=== PATIENT | male | born 1955 | race Caucasian/White ===

== ENCOUNTER 2020-11-22 09:39 | Outpatient (REF) | payer MEDICARE, MEDICAID, SELFPAY ==
[2020-11-22 11:10] LABS: MANUAL DIFF FLAG NO
[2020-11-22 11:18] LABS: Basophils Absolute Auto 0.1 X10*3/uL (0.0-0.2); Basophils Percent Auto 1.1 % (0-2); Eosinophils Absolute Auto 0.3 X10*3/uL (0.0-0.4); Eosinophils Percent Auto 3.8 % (0-4); Hematocrit 46.1 % (42-52); Hemoglobin 15.1 g/dl (14.0-18.0); Imm Gran Abs Auto 0.02 X10*3/uL (0.00-0.03); Imm Gran Pct Auto 0.3 % (0.0-0.4); Lymphocytes Absolute Auto 1.9 X10*3/uL (1.2-4.9); Lymphocytes Percent Auto 27.5 % (20-40); Mean Corpuscular HGB Conc 32.8 g/dl (31.0-36.0); Mean Corpuscular Hemoglobin 33.9 pg (27.0-33.0); Mean Corpuscular Volume 103.4 fL (80-98); Monocytes Percent Auto 13.8 % (2-11); Neutrophils Absolute Auto 3.8 X10*3/uL (2.0-8.3); Neutrophils Percent Auto 53.5 % (45-73); Platelet Count 257 X10*3/uL (160-400); Red Blood Count 4.46 X10*6/uL (4.60-5.80); Red Cell Distribution Width 13.6 % (11.0-16.0)
[2020-11-22 12:16] LABS: Thyroid Stimulating Hormone 3.16 uIU/mL (0.32-4.0)
[2020-11-22 12:20] LABS: Alanine Aminotransferase 14 U/L (0-40); Albumin Level 4.2 g/dL (3.5-5.0); Alkaline Phosphatase 95 U/L (39-117); Anion Gap 17 (12-20); Aspartate Amino Transferase 18 U/L (5-37); Bilirubin Total 0.6 mg/dL (0.0-1.0); Blood Urea Nitrogen 10 mg/dL (9-16); Calcium 9.4 mg/dL (8.4-10.2); Carbon Dioxide 25 mmol/L (22-29); Chloride 103 mmol/L (96-108); Cholesterol 182 mg/dL; Estimated Glomerular Filt Rate > 60; Glucose Fasting 117 mg/dL (60-99); HDL Cholesterol 43 mg/dL; LDL Cholesterol Calculated 115 mg/dl; Potassium 4.5 mmol/L (3.3-5.1); Sodium 140 mmol/L (135-145); Total Protein 7.8 g/dL (6.5-8.0); Triglycerides 122 mg/dL
== END 2020-11-22 09:40 | disposition home or self-care (01) ==
LOC: HO.HMGCLDS 09:39
PROVIDERS: PCP Internal Medicine; Visit Provider Internal Medicine
DX: F32.9 Major depressive disorder, single episode, unspecified (principal); F10.24 Alcohol dependence with alcohol-induced mood disorder; G25.0 Essential tremor
CPT/HCPCS: 36415; 80053; 80061; 84443; 85025

== ENCOUNTER 2023-02-17 16:04 | Outpatient (REF) | payer MEDICARE, MEDICAID, SELFPAY ==
[2023-02-17 16:22] LABS: MANUAL DIFF FLAG NO
[2023-02-17 17:37] LABS: Basophils Absolute Auto 0.1 X10*3/uL (0.0-0.2); Basophils Percent Auto 1.8 % (0-2); Eosinophils Absolute Auto 0.2 X10*3/uL (0.0-0.4); Eosinophils Percent Auto 3.9 % (0-4); Hematocrit 40.1 % (42.0-52.0); Hemoglobin 13.8 g/dl (14.0-18.0); Imm Gran Abs Auto 0.06 X10*3/uL (0.00-0.03); Lymphocytes Absolute Auto 1.4 X10*3/uL (1.2-4.9); Lymphocytes Percent Auto 23.1 % (20-40); Mean Corpuscular HGB Conc 34.4 g/dl (31.0-36.0); Mean Corpuscular Hemoglobin 35.7 pg (27.0-33.0); Mean Corpuscular Volume 103.6 fL (80.0-98.0); Mean Platelet Volume 9.3 fL (9.4-12.4); Monocytes Absolute Auto 0.8 X10*3/uL (0.1-1.2); Monocytes Percent Auto 12.2 % (2-11); Neutrophils Absolute Auto 3.6 x10*3/uL (2.0-8.3); Platelet Count 222 X10*3/uL (160-400); Red Blood Count 3.87 X10*6/uL (4.60-5.80); Red Cell Distribution Width 13.1 % (11.0-16.0); White Blood Count 6.2 X10*3/uL (4.8-10.8)
[2023-02-17 18:31] LABS: Alanine Aminotransferase 48 U/L (0-40); Albumin Level 4.3 g/dL (3.5-5.0); Alkaline Phosphatase 124 U/L (39-117); Anion Gap 16 (12-20); Aspartate Amino Transferase 71 U/L (5-37); Bilirubin Total 0.9 mg/dL (0.0-1.0); Blood Urea Nitrogen 9 mg/dL (9-16); Calcium 9.6 mg/dL (8.4-10.2); Carbon Dioxide 25 mmol/L (22-29); Chloride 93 mmol/L (96-108); Estimated Glomerular Filt Rate > 60; Glucose Random 91 mg/dL (60-115); Potassium 4.3 mmol/L (3.3-5.1); Sodium 130 mmol/L (135-145)
[2023-02-18 10:13] LABS: Free Prostate Spec Ag 1.7 ng/mL; Percent Free Prostate Spec Ag 22 % (calc) (>25); Prostate Specific Ag Total 7.6 ng/mL (< OR = 4.0)
== END 2023-02-17 16:05 | disposition home or self-care (01) ==
LOC: HO.LAB 16:04
PROVIDERS: PCP Internal Medicine; Visit Provider Internal Medicine
DX: F32.9 Major depressive disorder, single episode, unspecified (principal); G25.0 Essential tremor; L98.8 Other specified disorders of the skin and subcutaneous tissue; M47.22 Other spondylosis with radiculopathy, cervical region
CPT/HCPCS: 36415; 80053; 84154; 85025

== ENCOUNTER → 2023-03-20 14:27 | Outpatient (BNVA) | payer MEDICARE, MEDICAID, SELFPAY | PROVIDERS: PCP Internal Medicine; Visit Provider Nurse Practitioner Family | DX: R97.20 Elevated prostate specific antigen [PSA] (principal) | CPT/HCPCS: 99202 ==

== ENCOUNTER 2023-04-02 13:21 | Outpatient (REF) | payer MEDICARE, MEDICAID, SELFPAY ==
[2023-04-02 14:56] LABS: PSA,Total (Free>4and<10) 1.66 ng/mL (0.00-4.00)
== END 2023-04-02 13:22 | disposition home or self-care (01) ==
LOC: HO.LAB 13:21
PROVIDERS: PCP Internal Medicine; Visit Provider Nurse Practitioner Family
DX: Z12.5 Encounter for screening for malignant neoplasm of prostate (principal); R97.20 Elevated prostate specific antigen [PSA]
CPT/HCPCS: 36415; 84153

== ENCOUNTER 2023-04-06 12:50 | Outpatient (AMB) | payer MEDICARE, MEDICAID, SELFPAY ==
--- NOTE | 2023-04-06 12:56 | A.OFFVIS_ITS ---
Intake Intake Visit Reasons: 2w/labs Intake Note: Patient is present for initial visit elevated psa (PSA 1.66) Urology Medications: none Blood Thinner: none Wool Puller Required: No Accompanied by: Self / Same As Patient Allergies No Known Allergies [No Known Allergies*] Allergy (Unverified 04/06/23 23:39) Medication List - Last Reconciled 04/06/23 by ELLIS Hope gabapentin 100 mg PO phenelzine 15 mg PO TID HPI HPI Comments History of Present Illness Details Jeffrey is a very pleasant 67-year-old male patient of Dr. Peters. He has a past medical history of ischemic cardiomyopathy, colitis, IBS, anemia, pulmonary embolism, DVT, chronic neurological disease with benign essential tremor, and depression. He presents to the office today for a follow up. Of note, patient was previously seen approximately 2 weeks ago as a new patient for an elevated PSA at which time a redraw of the PSA was ordered. These results were reviewed with the patient today. PSAs are as follows... 02/17/23--7.6 % free PSA 22% 04/02/23--1.7 In discussion with the patient today he reports to be doing and feeling well. When asked patient denies any urological issues or concerns at this time. When asked he denies urinary urgency, urinary frequency, incontinence, nocturia, hematuria, dysuria, foul smelling urine, changes to urinary stream, flank pain, fever, and or chills. He is happy with his current voiding parameters. Patient otherwise offers no issues or concerns. [facility] Medical History (Updated 04/06/23 @ 23:49 by ELLIS Hope) Anemia Benign essential tremor Chronic neurologic disease Colitis Depression DVT (deep venous thrombosis) IBS (irritable bowel syndrome) Ischemic cardiomyopathy Pulmonary embolism Review of Systems Const All systems reviewed & are unremarkable except as noted in HPI and below Reports as per HPI Card Reports as per HPI Resp Reports as per HPI GI Reports as per HPI Reports as per HPI Musc Reports as per HPI Neuro Reports as per HPI Psych Reports as per HPI Endo Reports no additional complaints Carlos/Lymph Reports as per HPI Aller/Immun Reports no additional complaints Physical Exam Const General: cooperative, healthy appearing, comfortable, no acute distress, well developed, alert and awake Orientation/consciousness: patient oriented x3 Limitations: no limitations HEENT Head: Yes normal to inspection, Yes normocephalic and Yes atraumatic Ears: hearing grossly normal bilaterally Eyes General: appearance normal, both eyes and all related structures Neck Neck: Yes normal visual inspection and Yes trachea midline Chest Chest palpation & inspection: normal inspection of the chest Resp Effort & Inspection: normal respiratory effort and able to speak in complete sentences Cardio Rate: regular rate GI Inspection: Yes normal to inspection Rectal Exam - Male: Yes deferred General: Yes no CVA tenderness Back/Spine/Pelvis Back: no CVA tenderness Skin General skin exam: no rashes or lesions noted Neuro General: patient oriented x3 Extrem General: Yes normal to inspection Psych Appearance: grossly normal and well kempt Mental Status: mental status grossly normal Speech and movement: Normal speech and movement present and Clear speech present Affect: normal affect Attitude: cooperative Thought process: Normal thought process present Thought content: Normal thought content present Insight: Fair insight present (Psych) Judgement: Fair judgement present (Psych) Assessment & Plan Assessment & Plan (1) Elevated PSA: Code(s): R97.20 - Elevated prostate specific antigen [PSA] Plan Recent PSA results reviewed with the patient today; as noted above. Patient denies any urological issues or concerns at this time. Patient reports be happy with current voiding parameters. PSA in 4 months. Follow-up in 4 months with lab to be completed prior; or sooner with any issues, concerns, and or questions. Orders: Orders Prostate Specific Antigen 4 Months R97.20 - Elevated prostate specific antigen [PSA] AMB Urinalysis Automated Today Z13.9 - Encounter for screening, unspecified Patient Instructions: The patient had an opportunity to ask questions regarding the treatment plan. All questions were answered. Physical exam, labs, and imaging were discussed and reviewed in detail. As well as risks, benefits, and discussion of treatment choices. No major barriers to understanding were identified. The patient expressed understanding and agreement with the above treatment plan. The patient was made aware they should contact our office by phone for worsening of their current condition, the appearance of new symptoms, or with any questions or concerns. Compliance is encouraged with any medications and follow up testing that is ordered. It is a privilege to be allowed the opportunity to participate in? your urological care.? Again, if you have any questions or concerns If you have any questions or concerns please do not hesitate to contact me. The office is [phone]. This note is constructed using voice recognition software. While every effort has been made to ensure accuracy hydraulic governor assembler errors may have been included. Yours sincerely, ELLIS Hope Coding Level of Care Code Est Pt Level 3 (07830) Diagnoses Elevated PSA R97.20
== END 2023-04-06 13:28 | disposition home or self-care (01) ==
PROVIDERS: PCP Internal Medicine; Visit Provider Nurse Practitioner Family
DX: R97.20 Elevated prostate specific antigen [PSA] (principal)
CPT/HCPCS: 99213

== ENCOUNTER → 2023-04-06 12:50 | Outpatient (BNVA) | payer MEDICARE, MEDICAID, SELFPAY | PROVIDERS: PCP Internal Medicine; Visit Provider Nurse Practitioner Family | DX: R97.20 Elevated prostate specific antigen [PSA] (principal) | CPT/HCPCS: 99212 ==

== ENCOUNTER 2023-05-27 13:17 | Inpatient (IN) | payer MEDICARE, MEDICAID, SELFPAY ==
--- NOTE | ~2023-05-27 | XR_ITS ---
EXAMINATION: XR TIBIA AND FIBULA, LEFT CLINICAL INFORMATION: Posterior leg wound COMPARISON: None available. TECHNIQUE: AP and lateral views of the left tibia and fibula were obtained. FINDINGS: No fracture or dislocation. Degenerative changes in the knee joint. No bony erosions visualized. Ankle joint appears intact. XR/XR tibia fibula LT 2V IMPRESSION: No fracture or dislocation. No bony erosions.
[2023-05-27 13:42] VITALS: BP 140/72; PULSE 851; O2SAT 96
[2023-05-27 14:23] VITALS: BMI 31.4
--- NOTE | 2023-05-27 14:26 | ED_ITS ---
HPI - Extremity Injury (Lower) General Chief Complaint: Wound/Laceration Stated Complaint: open wound Time Seen by Provider: 05/27/23 13:44 Source: patient Mode of arrival: EMS History of Present Illness HPI Narrative: 67-year-old male with history of ischemic cardiomyopathy, anemia, ulcerative colitis and a history DVT/PE, depression, benign essential tremor. He presents today via EMS after someone else call them (I suspect a Health and welfare check) and arrives stating that he has had a wound at his left lower extremity which has maggots and when I ask him about the feces around his feet he says he has an taking his shoes off. Related Data Home Medications Medication Instructions Recorded Confirmed gabapentin 100 mg capsule 100 mg PO TID PRN Pain 03/19/23 05/27/23 phenelzine 15 mg tablet 15 mg PO TID 03/20/23 05/27/23 propranolol 120 mg capsule,24 120 mg PO DAILY 05/27/23 05/27/23 hr,extended release thiamine HCl (vitamin B1) 100 mg 100 mg PO DAILY 05/27/23 05/27/23 tablet Allergies Allergy/AdvReac Type Severity Reaction Status Date / Time No Known Allergies Allergy Unverified 04/06/23 23:39 [No Known Allergies*] Review of Systems Review of Systems: Pertinent positives and negatives as stated in HPI [facility] Past Medical History Source: nursing notes reviewed Medical History Anemia Benign essential tremor Chronic neurologic disease Colitis Depression DVT (deep venous thrombosis) IBS (irritable bowel syndrome) Ischemic cardiomyopathy Pulmonary embolism Social History Social History Alcohol intake: current Smoked in Last 30 Days: No Use of substances other than those prescribed or required for medical reasons: No Advance Directives: Yes Advance Directives Information Provided: Yes Advance Directives on File: No Physical Exam Vital Signs: Vital Signs: Last Vital Signs Temp 98.6 F 05/27/23 15:34 Pulse 91 05/27/23 15:34 Resp 16 05/27/23 15:34 BP 145/84 H 05/27/23 15:34 Pulse Ox 95 05/27/23 15:34 O2 Del Method Room Air 05/27/23 15:34 BMI result Body Mass Index 31.4 VITAL SIGNS: Reviewed. GENERAL: Well developed, well nourished, in no acute distress. HEAD: Normocephalic/atraumatic EYES: PERRLA, EOMI EARS: Ext canals without abnormality NOSE: Nares patent bilateral OROPHARYNX: no oral lesions noted, posterior pharynx clear NECK: Supple, no adenopathy LUNGS: Normal breath sounds. No adventitious sounds or accessory muscle use. CARDIOVASCULAR: Regular rate and rhythm without noted murmurs ABDOMEN: Soft, non-tender, non-distended with bowel sounds. MUSCULOSKELETAL: No tenderness, deformities, or effusions noted on gross inspection. EXTREMITIES: No cyanosis, clubbing or edema. LLE: There are chronic skin changes likely secondary to venous stasis but there is a huge area of necrotic tissue at the posterior aspect with maggot activity BILATERAL FEET: Bilateral feet are covered in feces SKIN: Inspection of the skin reveals no rashes NEUROLOGIC: Alert and oriented x 4. Strength and sensation to light touch were grossly intact x 4. Medications Administered Discontinued Medications Generic Name Dose Route Start Last Admin Trade Name Freq PRN Reason Stop Dose Admin Sodium Chloride 1,000 mls @ 999 mls/hr 05/27/23 15:00 05/27/23 16:22 Ns IV 05/27/23 16:00 Infused .Q1H1M LUTHER Infusion Piperacillin Sod/Tazobactam 50 mls @ 100 mls/hr 05/27/23 16:55 05/27/23 18:24 Sod 3.375 gm/ Sodium Chloride IV 05/27/23 17:24 Infused ONCE ONE Infusion Medical Decision Making Medical Decision Making [facility] Narrative: 1345: 67-year-old male with history and clinical presentation consistent with necrotic tissue at the left lower extremity, on review of patient's chart it does appear that he has been seen by Urology for elevated PSA and has a follow- up appointment in 4 months (the most recent appointment was in March). Leg will be cleaned to the best of our ability. I reviewed all investigations and hematologic indices are not significant for leukocytosis or left shift, patient has chronically stable macrocytic anemia, there is a mild thrombocytopenia-137. Patient is afebrile. Chemistry indices significant for evidence of dehydration but no MARIELA and electrolytes are without derangement, total bili room mid elevated at 1.6 this could be reactive given condition of leg. XR-no periosteal evidence of osteo no otherwise my interpretation is in agreement with radiology's impression. 1655: Consultation with General surgery for debridement. Recommendation for possible admission to hospitalist service and will consult for debridement. 170: Consult did with inpatient hospitalist. 1924: I confirmed with inpatient hospitalist who accepts admission. Differential Diagnosis Differential Diagnoses: The differential diagnosis associated with the presentation includes Please see the discussion above Admission/Observation Consideration of admission/observation: Escalation of care including admission/observation considered Please see the discussion above Consult Healthcare Provider Management of the patient was discussed with: Jewelry Racker Please see the discussion above Lab Data MDM Lab Attestation statement: I reviewed the patient's lab results. Please see the discussion above 05/27/23 14:28 05/27/23 14:28 Labs: Lab Results 05/27/23 05/27/23 05/27/23 Range/Units 14:28 14:28 14:28 WBC 6.1 (4.8-10.8) X10*3/uL RBC 3.83 L (4.60-5.80) X10*6/uL Hgb 13.7 L (14.0-18.0) g/dl Hct 39.0 L (42.0-52.0) % MCV 101.8 H (80.0-98.0) fL MCH 35.8 H (27.0-33.0) pg MCHC 35.1 (31.0-36.0) g/dl RDW 13.6 (11.0-16.0) % Plt Count 137 L D (160-400) X10*3/uL MPV 8.3 L (9.4-12.4) fL Immature Gran % (Auto) 0.5 H (0.0-0.4) % Neut % (Auto) 64.9 (45-73) % Lymph % (Auto) 17.2 L (20-40) % [place] % (Auto) 13.2 H (2-11) % Eos % (Auto) 3.0 (0-4) % Baso % (Auto) 1.2 (0-2) % Lymph # (Auto) 1.0 L (1.2-4.9) X10*3/uL [place] # (Auto) 0.8 (0.1-1.2) X10*3/uL Eos # (Auto) 0.2 (0.0-0.4) X10*3/uL Baso # (Auto) 0.1 (0.0-0.2) X10*3/uL Abs Immat Gran (auto) 0.03 (0.00-0.03) X10*3/uL Absolute Neuts (auto) 3.9 (2.0-8.3) x10*3/uL Absolute Nucleated RBC 0.000 (0.0-0.012) X10*3/uL Nucleated RBC % (auto) 0.0 (0.0-0.2) /100WBC PT (11.1-13.3) SEC INR (0.9-1.1) Sodium 132 L (135-145) mmol/L Potassium 4.0 (3.3-5.1) mmol/L Chloride 93 L (96-108) mmol/L Carbon Dioxide 27 (22-29) mmol/L Anion Gap 16 (12-20) BUN 7 L (9-16) mg/dL Creatinine 0.82 (0.5-1.4) mg/dL Estim Creat Clear Calc 104.8 Estimated GFR > 60 Random Glucose 112 (60-115) mg/dL Lactic Acid 2.5 H* (0.5-2.0) mmol/L Lactic Acid F/U @ 2Hr (0.5-2.0) mmol/L Calcium 9.9 (8.4-10.2) mg/dL Total Bilirubin 1.6 H (0.0-1.0) mg/dL AST 49 H (5-37) U/L ALT 32 (0-40) U/L Alkaline Phosphatase 92 (39-117) U/L Total Protein 7.8 (6.5-8.0) g/dL Albumin 3.8 (3.5-5.0) g/dL Urine Color Urine Appearance Urine pH (5.0-9.0) Ur Specific [place] (1.005-1.025) Urine Protein (Neg-Trace) mg/dL Urine Glucose (UA) (Negative) mg/dL Urine Ketones (Negative) mg/dL Urine Blood (Negative) Urine Nitrite (Negative) Ur Leukocyte Esterase (Negative) 05/27/23 05/27/23 05/27/23 Range/Units 16:54 16:54 17:43 WBC (4.8-10.8) X10*3/uL RBC (4.60-5.80) X10*6/uL Hgb (14.0-18.0) g/dl Hct (42.0-52.0) % MCV (80.0-98.0) fL MCH (27.0-33.0) pg MCHC (31.0-36.0) g/dl RDW (11.0-16.0) % Plt Count (160-400) X10*3/uL MPV (9.4-12.4) fL Immature Gran % (Auto) (0.0-0.4) % Neut % (Auto) (45-73) % Lymph % (Auto) (20-40) % [place] % (Auto) (2-11) % Eos % (Auto) (0-4) % Baso % (Auto) (0-2) % Lymph # (Auto) (1.2-4.9) X10*3/uL [place] # (Auto) (0.1-1.2) X10*3/uL Eos # (Auto) (0.0-0.4) X10*3/uL Baso # (Auto) (0.0-0.2) X10*3/uL Abs Immat Gran (auto) (0.00-0.03) X10*3/uL Absolute Neuts (auto) (2.0-8.3) x10*3/uL Absolute Nucleated RBC (0.0-0.012) X10*3/uL Nucleated RBC % (auto) (0.0-0.2) /100WBC PT 13.0 (11.1-13.3) SEC INR 1.1 (0.9-1.1) Sodium (135-145) mmol/L Potassium (3.3-5.1) mmol/L Chloride (96-108) mmol/L Carbon Dioxide (22-29) mmol/L Anion Gap (12-20) BUN (9-16) mg/dL Creatinine (0.5-1.4) mg/dL Estim Creat Clear Calc Estimated GFR Random Glucose (60-115) mg/dL Lactic Acid (0.5-2.0) mmol/L Lactic Acid F/U @ 2Hr 1.6 (0.5-2.0) mmol/L Calcium (8.4-10.2) mg/dL Total Bilirubin (0.0-1.0) mg/dL AST (5-37) U/L ALT (0-40) U/L Alkaline Phosphatase (39-117) U/L Total Protein (6.5-8.0) g/dL Albumin (3.5-5.0) g/dL Urine Color Yellow Urine Appearance Clear Urine pH 7.0 (5.0-9.0) Ur Specific [place] <= 1.005 (1.005-1.025) Urine Protein Negative (Neg-Trace) mg/dL Urine Glucose (UA) Negative (Negative) mg/dL Urine Ketones Trace (Negative) mg/dL Urine Blood Negative (Negative) Urine Nitrite Negative (Negative) Ur Leukocyte Esterase Negative (Negative) Independent Interpretation I performed an independent interpretation of an: EKG Interpretation: Normal sinus rhythm, HR-77, no STEMI, DE/QRS/QTC is within normal limits. Radiology Impression Discussion of test interpretation with radiology: I have reviewed the radiologist's reading. Radiologist Impression: Please see the discussion above External Record Review External record reviewed: Office record, Outpatient record, Prior outpatient labs and Prior outpatient radiology Chronic Conditions Patient?s care impacted by: Other Anemia Critical Care Time Critical Care Time Critical Care Time: Yes Total Critical Care Time: 30 Attestation: I personally attest to this time spent taking care of the patient. Discharge Plan Discharge Clinical Impression: Non-healing wound of left lower extremity, Infestation by maggots Patient Disposition: Admitted As Inpatient
--- NOTE | 2023-05-27 14:30 | ECG_ITS ---
Test Reason : LOW SODIUM Blood Pressure : / mmHG Vent. Rate : 077 BPM Atrial Rate : 077 BPM P-R Int : 188 ms QRS Dur : 104 ms QT Int : 414 ms P-R-T Axes : 000 186 154 degrees QTc Int : 468 ms Suspect limb lead reversal, interpretation assumes no reversal Normal sinus rhythm Right superior axis deviation Possible Anterior infarct , age undetermined Abnormal ECG No previous ECGs available Referred By: Bhavya Mejia Electronically Signed By:DANTE WAY
[2023-05-27 14:39] LABS: MANUAL DIFF FLAG NO
[2023-05-27 14:43] LABS: Basophils Absolute Auto 0.1 X10*3/uL (0.0-0.2); Basophils Percent Auto 1.2 % (0-2); Eosinophils Absolute Auto 0.2 X10*3/uL (0.0-0.4); Hemoglobin 13.7 g/dl (14.0-18.0); Imm Gran Abs Auto 0.03 X10*3/uL (0.00-0.03); Imm Gran Pct Auto 0.5 % (0.0-0.4); Lymphocytes Percent Auto 17.2 % (20-40); Mean Corpuscular HGB Conc 35.1 g/dl (31.0-36.0); Mean Corpuscular Hemoglobin 35.8 pg (27.0-33.0); Mean Corpuscular Volume 101.8 fL (80.0-98.0); Mean Platelet Volume 8.3 fL (9.4-12.4); Monocytes Absolute Auto 0.8 X10*3/uL (0.1-1.2); Monocytes Percent Auto 13.2 % (2-11); Neutrophils Absolute Auto 3.9 x10*3/uL (2.0-8.3); Neutrophils Percent Auto 64.9 % (45-73); Platelet Count 137 X10*3/uL (160-400); Red Blood Count 3.83 X10*6/uL (4.60-5.80); Red Cell Distribution Width 13.6 % (11.0-16.0); White Blood Count 6.1 X10*3/uL (4.8-10.8)
[2023-05-27 14:54] LABS: Alanine Aminotransferase 32 U/L (0-40); Albumin Level 3.8 g/dL (3.5-5.0); Alkaline Phosphatase 92 U/L (39-117); Anion Gap 16 (12-20); Aspartate Amino Transferase 49 U/L (5-37); Bilirubin Total 1.6 mg/dL (0.0-1.0); Blood Urea Nitrogen 7 mg/dL (9-16); Calcium 9.9 mg/dL (8.4-10.2); Carbon Dioxide 27 mmol/L (22-29); Chloride 93 mmol/L (96-108); Creatinine Clr Calc Pharmacy 104.8; Estimated Glomerular Filt Rate > 60; Glucose Random 112 mg/dL (60-115); Sodium 132 mmol/L (135-145); Total Protein 7.8 g/dL (6.5-8.0)
[2023-05-27 14:56] LABS: Lactic Acid 2.5 mmol/L (0.5-2.0)
--- NOTE | 2023-05-27 14:56 | MHC.EDTECH ---
pt requesting to have maggots cleaned from wound. made aware. Used a hydrogen peroxide/water solution to soak the legs. Pt tolerated well.
[2023-05-27] MEDS: 0.9 % Sodium Chloride 1,000 ML 999 ML IV (15:14)
[2023-05-27 15:34] VITALS: BP 145/84; PULSE 91; RESP 16; TEMP 37; O2SAT 95
[2023-05-27 16:37] LABS: Reflex Lactate? Lactic Acid Added
[2023-05-27 17:11] LABS: INTERNATIONAL NORM RATIO 1.1 (0.9-1.1)
[2023-05-27 17:14] LABS: ~Lactic Acid-LAB USE ONLY 1.6 mmol/L (0.5-2.0)
[2023-05-27] MEDS: Piperacillin Sodium/Tazobactam 3.375 GM in 0.9 % Sodium Chloride 50 ML IV ×2 (17:39→23:52)
--- NOTE | 2023-05-27 17:39 | P.HPHOSP_ITS ---
<Statement entered by Alexus Ayoub MD - 06/01/23 07:08> PT seen and examined at [facility]. I agree with MUSHT[facility] note, AP Pt with poorly healing wound. will consult wound care, IV abx , follow cultures for full HP see below History of Present Illness Date of Service: 05/27/23 Attending physician on admission: Alexus Ayoub Chief Complaint: Lower left leg wound Pt is a 67-year-old male with a PMH significant for?ischemic cardiomyopathy, hx of pulmonary embolism 10 years ago, hx of DVT, ulcerative colitis, peripheral neuropathy, HTN, and chronic constipation who presents to the ED for evaluation of lower leg redness, purulent discharge, and open wound. Patient states he used to be very active and ran all the time but since he had a DVT and pulmonary embolism 10 years ago has been much less active. Complains of chronic peripheral neuropathy and ?poor blood flow?. Patient reports he noticed 2 weeks ago redness and bleeding from open wound on his lower left leg. More recently patient has noticed purulent drainage from the area and that his wound was infested with maggots. Patient complains of difficulty walking and pain secondary to peripheral neuropathy. Swelling in legs is chronic, at baseline. Patient lives in a house in a room in a basement with multiple other housemates. States one of his housemates called the ambulance after looking at his leg. Patient denies fever, chills. No nausea, vomiting, diarrhea, abdominal pain. Denies shortness of breath. No chest pain/pressure, palpitations. In the ED patient was afebrile but slightly hypertensive at 145/84. Labs were significant for H&H of 13.7/39.0, hyponatremia of 132, chloride 93, lactic acid 2.5 with repeat 1.4, bilirubin 1.6, AST 49. X-ray of left tibia and fibula with no acute fracture dislocation or bony erosions. EKG demonstrated normal sinus rhythm with non specific t-wave inversions and no evidence of ST elevations or depressions. Pt was treated with IVF and Zosyn. Pt will be admitted to the hospital for treatment further evaluation of lower leg cellulitis with IV antibiotics and specialist consultation for wound care. Review of Systems 2 Review of Systems: Lower left leg redness, swelling, purulent discharge Chronic peripheral neuropathy [facility] Medical History Anemia Benign essential tremor Chronic neurologic disease Colitis Depression DVT (deep venous thrombosis) IBS (irritable bowel syndrome) Ischemic cardiomyopathy Pulmonary embolism Social History Alcohol intake: current Smoked in Last 30 Days: No Use of substances other than those prescribed or required for medical reasons: No Advance Directives: Yes Advance Directives Information Provided: Yes Advance Directives on File: No Meds Allergies Allergy/AdvReac Type Severity Reaction Status Date / Time No Known Allergies Allergy Unverified 04/06/23 23:39 [No Known Allergies*] Home Medications Medication Instructions Recorded Confirmed Last Taken Type gabapentin 100 mg capsule 100 mg PO TID PRN Pain 03/19/23 05/27/23 Unknown History phenelzine 15 mg tablet 15 mg PO TID 03/20/23 05/27/23 1 Week Ago History ~05/20/23 propranolol 120 mg capsule,24 120 mg PO DAILY 05/27/23 05/27/23 Unknown History hr,extended release thiamine HCl (vitamin B1) 100 mg 100 mg PO DAILY 05/27/23 05/27/23 Unknown History tablet Physical Exam 2 Vital Signs and Narrative: Vital Signs: Last Vital Signs Temp 98.6 F 05/27/23 15:34 Pulse 91 05/27/23 15:34 Resp 16 05/27/23 15:34 BP 145/84 H 05/27/23 15:34 Pulse Ox 95 05/27/23 15:34 O2 Del Method Room Air 05/27/23 15:34 BMI result Body Mass Index 31.4 Constitutional: Alert, unkempt, in no acute distress. Mental Status: Oriented to person, place and time. Eyes: Pupils are equal, round, and reactive to light. Ear, Nose, and Throat: Oropharynx clear, mucous membranes moist. Ears and nose without deformities. Trachea midline. Respiratory: Clear to auscultation bilaterally. No wheezing, rales, or rhonchi. Cardiovascular: S1, S2 regular. No murmurs, rubs, or gallops. Gastrointestinal: Abdomen soft, non-tender, non-distended. Normal bowel sounds. Neurologic: Cranial nerves II-XII are grossly intact bilaterally. No focal neurological deficits. Moves all extremities spontaneously. Skin: No rashes or lesions noted. Musculoskeletal: No cyanosis or clubbing. Extremities: No edema. Psychiatric: Normal mood and affect. Results Labs 05/27/23 14:28 05/27/23 14:28 Labs: Laboratory Results - last 24 hr 05/27/23 05/27/23 05/27/23 14:28 14:28 14:28 MCV 101.8 H MCH 35.8 H MCHC 35.1 RDW 13.6 Plt Count 137 L D MPV 8.3 L Immature Gran % (Auto) 0.5 H Neut % (Auto) 64.9 Lymph % (Auto) 17.2 L [place] % (Auto) 13.2 H Eos % (Auto) 3.0 Baso % (Auto) 1.2 Lymph # (Auto) 1.0 L [place] # (Auto) 0.8 Eos # (Auto) 0.2 Baso # (Auto) 0.1 Abs Immat Gran (auto) 0.03 Absolute Neuts (auto) 3.9 Absolute Nucleated RBC 0.000 Nucleated RBC % (auto) 0.0 PT INR Anion Gap 16 Estim Creat Clear Calc 104.8 Estimated GFR > 60 Random Glucose 112 Lactic Acid 2.5 H* Lactic Acid F/U @ 2Hr Calcium 9.9 Total Bilirubin 1.6 H AST 49 H ALT 32 Alkaline Phosphatase 92 Total Protein 7.8 Albumin 3.8 05/27/23 05/27/23 16:54 16:54 MCV MCH MCHC RDW Plt Count MPV Immature Gran % (Auto) Neut % (Auto) Lymph % (Auto) [place] % (Auto) Eos % (Auto) Baso % (Auto) Lymph # (Auto) [place] # (Auto) Eos # (Auto) Baso # (Auto) Abs Immat Gran (auto) Absolute Neuts (auto) Absolute Nucleated RBC Nucleated RBC % (auto) PT 13.0 INR 1.1 Anion Gap Estim Creat Clear Calc Estimated GFR Random Glucose Lactic Acid Lactic Acid F/U @ 2Hr 1.6 Calcium Total Bilirubin AST ALT Alkaline Phosphatase Total Protein Albumin Imaging Radiologist's Impressions: Impressions Tibia/Fibula X-Ray 05/27/23 16:15 IMPRESSION: No fracture or dislocation. No bony erosions. Assessment and Plan (1) Non-healing wound of left lower extremity: Status: Acute (2) Infestation by maggots: Status: Acute (3) Cellulitis of left lower leg: Status: Acute Plan Pt is a 67-year-old male with a PMH significant for?ischemic cardiomyopathy, hx of pulmonary embolism 10 years ago, hx of DVT, ulcerative colitis, peripheral neuropathy, HTN, and chronic constipation who presents to the ED for evaluation of lower leg redness, purulent discharge, and open wound. Pt will be admitted to the hospital for treatment further evaluation of lower leg cellulitis with IV antibiotics and specialist consultation for wound care. Cellulitis of lower left leg with underlying chronic venous stasis dermatitis Patient with erythema, bleeding, purulent drainage, sloughing of the skin, and maggot infestation x 2 weeks Patient with difficulty keeping area hygienic: foot encrusted with likely feces Area cleaned in the ED Will treat with empiric antibiotics: Vanc and Zosyn X-ray of left fibula and tibia negative for acute fracture, dislocation, or bony erosions Will check CRP, ESR; if sufficiently elevated consider MRI Wound care consult PT evaluation Lactic acidosis, resolved Patient's lactic acid 2.5 with repeat 1.6 Patient given IVF in ED Patient does not meet sepsis criteria Hyponatremia Patient's sodium 132 at time of presentation, similar to previous labs on 02/17/2023 Patient asymptomatic Received IVF in the ED Follow BMP Chronic macrocytic anemia Stable, at baseline Will check B12, folate Peripheral neuropathy Continue gabapentin HTN Continue propranolol Full Code Attending:?Dr. Ayoub DVT Prophylaxis: Lovenox Pt will require a hospitalization of at least two nights for treatment of?lower left leg cellulitis with IV antibiotics and undercar specialist consult. Time Spent With Patient Time: Total time managing care of this patient today ____ minutes. Quality Stroke Does the patient have a stroke diagnosis?: No VTE Prior VTE?: No VTE Risk Level:: Medical - moderate - high VTE Device Contraindication: Treatment Not Indicated VTE Drug Contraindication: N/A - Med Ordered
[2023-05-27 18:14] LABS: Appearance Urine Clear; Color Urine Yellow; Glucose Urine UA Negative (Negative); Leukocyte Esterase Urine Negative (Negative); Nitrite Urine Negative (Negative); Specific Gravity - Urine <= 1.005 (1.005-1.025); Urine Blood Negative (Negative); Urine Ketones Trace mg/dL (Negative); Urine Protein Negative (Neg-Trace)
--- NOTE | 2023-05-27 18:49 | PHA.MEDREC ---
Pharmacy Consult ? Medication Reconciliation Pharmacy has completed the medication reconciliation. Patient confirmed medications. Reports he has not had phenelzine in about a week because he is suppose to take it with another medication called maprotiline. Patient has no history of maprotiline being filled. patient reported he now get all his medications at [facility]. He believes he takes more than the 4 medication in the claim history. Called [facility] to confirmed all medications and patient is only on the 4 in his home list. Joyce Olson, PamD
[2023-05-27 20:16] LABS: C Reactive Protein 5.59 mg/dL (< or = 0.50)
[2023-05-27] MEDS: Enoxaparin Sodium 40 MG/0.4 ML SYRINGE SUBCUT (20:31)
[2023-05-27] MEDS: vancomycin/NS 2,000 MG/500 ML PLAST..BAG 250 MG IV (20:32)
[2023-05-27 20:51] VITALS: BP 132/69; PULSE 69; O2SAT 97
--- NOTE | 2023-05-27 21:03 | PHA.PROG ---
Admission Date/Time: May 27, 2023 19:37 Indication: Cellulitis Weight in k kg Adjusted body weight in K kg [place] body weight in K.3 kg Obesity Dosing Indication % IBW: 135% Serum Creatinine - Last 168 Hours 05/27/23 14:28 Creatinine 0.82 Estimated CrCl and GFR - Last 168 Hours 05/27/23 14:28 Estim Creat Clear Calc 104.8 Estimated GFR > 60 Vancomycin Loading Dose: 2000 mg Current Vancomycin Dosing Regimen: 1000 mg Q12H Date and Time for next Vancomycin Level to be drawn: 05/29 @ 0700 Pharmacist Comments on Vancomycin Plan: Patient received load dose vancomycin 2000 mg on 05/27 @ 2031. Maintenance dose vancomycin 1000 mg Q12H is scheduled to start 05/28 @ 0900. Expected AUC 431 with a trough of 13.8 Level is scheduled prior to 4th dose Pharmacy will monitor renal function daily Joyce Olson, Jeny Vancomycin dosing will take advantage of [employer] as a clinical decision support tool that uses Bayesian modeling to calculate individual patient's pharmacokinetic parameters and forecast the patient's drug concentration time course with the target goal AUC 24 range of 400 - 600 mg/L/hr.
[2023-05-27] MEDS: 0.9 % Sodium Chloride Flush 3 ML SYRINGE IVFLUSH (23:52)
[2023-05-28] VITALS (11 sets, daily range): BP systolic 105–151; BP diastolic 56–83; PULSE 65–80; RESP 15–18; TEMP 36.3–37.1; O2SAT 94–99; BMI 31.7
[2023-05-28] MEDS: Piperacillin Sodium/Tazobactam 3.375 GM in 0.9 % Sodium Chloride 50 ML IV ×4 (06:58→23:54)
--- NOTE | 2023-05-28 07:41 | P.CONGS_ITS ---
History of Present Illness Consult details Consult date: 05/27/23 Narrative: Patient is 67-year-old male with a plethora of comorbidities, who lives in very squalid living conditions, presented to the ER for variety of issues and a surgical consult for chronic left leg cellulitis. The patient has had a longstanding history of bilateral lower extremity venous insufficiency changes and swelling and cellulitis . Chart was reviewed patient evaluated PMF Past Medical History Medical History Anemia Benign essential tremor Chronic neurologic disease Colitis Depression DVT (deep venous thrombosis) IBS (irritable bowel syndrome) Ischemic cardiomyopathy Pulmonary embolism Social History Social History Alcohol intake: current Patient Tobacco Use Status: Former Tobacco user Smoked in Last 30 Days: No Use of substances other than those prescribed or required for medical reasons: No Advance Directives: Yes Advance Directives Information Provided: Yes Advance Directives on File: No Meds Allergies Allergy/AdvReac Type Severity Reaction Status Date / Time No Known Allergies Allergy Unverified 04/06/23 23:39 [No Known Allergies*] Active Medications: Current Medications Acetaminophen (Acetaminophen 325 Mg Tablet) 650 mg PO Q6H PRN PRN Reason: Pain, Mild (Pain Scale 1-3) Docusate Sodium (Docusate Sodium 100 Mg Capsule) 100 mg PO DAILY PRN PRN Reason: Constipation Enoxaparin Sodium (Enoxaparin Sodium 40 Mg/0.4 Ml Syringe) 40 mg SUBCUT Q24H [facility] Last Admin: 05/27/23 20:31 Dose: 40 mg Gabapentin (Gabapentin 100 Mg Capsule) 100 mg PO TID PRN PRN Reason: Pain, Mild (Pain Scale 1-3) Piperacillin Sod/Tazobactam (Sod 3.375 gm/ Sodium Chloride) 50 mls @ 100 mls/hr IV Q6H [facility] Last Admin: 05/28/23 06:58 Dose: 100 mls/hr Vancomycin HCl 1,000 mg/ (Sodium Chloride) 270 mls @ 270 mls/hr IV Q12H [facility] Ondansetron HCl (Ondansetron Hcl 4 Mg/2 Ml Vial) 4 mg IVPUSH Q8H PRN PRN Reason: Nausea and Vomiting Pharmacy Consult (Consult Rx Vancomycin Dosing) 1 each MISCELLANE DAILY PRN PRN Reason: Consult order Propranolol HCl (Propranolol Hcl La 60 Mg Cap.Sa.24h) 120 mg PO DAILY [facility]; Protocol Sodium Chloride (0.9 % Sodium Chloride Flush 3 Ml Syringe) 3 ml IVFLUSH QSHIFT [facility] Last Admin: 05/27/23 23:52 Dose: 3 ml Thiamine HCl (Thiamine Hcl 100 Mg Tablet) 100 mg PO DAILY [facility] Home Medications Medication Instructions Recorded Confirmed Last Taken Type gabapentin 100 mg capsule 100 mg PO TID PRN Pain 03/19/23 05/27/23 Unknown History phenelzine 15 mg tablet 15 mg PO TID 03/20/23 05/27/23 1 Week Ago History ~05/20/23 propranolol 120 mg capsule,24 120 mg PO DAILY 05/27/23 05/27/23 Unknown History hr,extended release thiamine HCl (vitamin B1) 100 mg 100 mg PO DAILY 05/27/23 05/27/23 Unknown History tablet Physical Exam 2 Vital Signs: Vital Signs: Last Vital Signs Temp 98.4 F 05/28/23 07:06 Pulse 69 05/28/23 07:06 Resp 15 05/28/23 07:06 BP 150/83 H 05/28/23 07:06 Pulse Ox 97 05/28/23 07:06 O2 Del Method Room Air 05/28/23 07:06 BMI result Body Mass Index 31.4 Const: Other: very unkempt, disheveled , ungroomed appearing elderly male Extrem: Other: bilateral lower extremity chronic brawny induration and edema. Left lower extremity worse than the right. Extremities grossly neurovascularly intact. Very dirty/filthy extremity with superficial cellulitis. Results Labs 05/28/23 09:26 05/28/23 09:26 Labs: Abnormal lab results 05/27/23 Range/Units 14:28 RBC 3.83 L (4.60-5.80) X10*6/uL Hgb 13.7 L (14.0-18.0) g/dl Hct 39.0 L (42.0-52.0) % MCV 101.8 H (80.0-98.0) fL MCH 35.8 H (27.0-33.0) pg Plt Count 137 L D (160-400) X10*3/uL MPV 8.3 L (9.4-12.4) fL Immature Gran % (Auto) 0.5 H (0.0-0.4) % Lymph % (Auto) 17.2 L (20-40) % [place] % (Auto) 13.2 H (2-11) % Lymph # (Auto) 1.0 L (1.2-4.9) X10*3/uL Sodium 132 L (135-145) mmol/L Chloride 93 L (96-108) mmol/L BUN 7 L (9-16) mg/dL Lactic Acid 2.5 H* (0.5-2.0) mmol/L Total Bilirubin 1.6 H (0.0-1.0) mg/dL AST 49 H (5-37) U/L C-Reactive Protein 5.59 H (< or = 0.50) mg/dL Short CBC 05/27/23 Range/Units 14:28 WBC 6.1 (4.8-10.8) X10*3/uL Hgb 13.7 L (14.0-18.0) g/dl Hct 39.0 L (42.0-52.0) % Plt Count 137 L D (160-400) X10*3/uL BMP 05/27/23 14:28 Sodium 132 L Potassium 4.0 Chloride 93 L Carbon Dioxide 27 BUN 7 L Creatinine 0.82 Calcium 9.9 Liver Function 05/27/23 Range/Units 14:28 Total Bilirubin 1.6 H (0.0-1.0) mg/dL AST 49 H (5-37) U/L ALT 32 (0-40) U/L Alkaline Phosphatase 92 (39-117) U/L Albumin 3.8 (3.5-5.0) g/dL Urine 05/27/23 Range/Units 17:43 Urine Color Yellow Urine Appearance Clear Urine pH 7.0 (5.0-9.0) Ur Specific [place] <= 1.005 (1.005-1.025) Urine Protein Negative (Neg-Trace) mg/dL Urine Glucose (UA) Negative (Negative) mg/dL All other labs normal. Assessment and Plan (1) Cellulitis of left lower leg: Status: Acute Plan Current recommendation is that the patient needs to be bathe and clean. This includes his His lower extremities which need to be thoroughly washed, local wound care in the form of elevation of the left lower extremity, IV antibiotics for superficial cellulitis and consideration for wound care center consultation. Time Spent With Patient Time: Total time managing care of this patient today ____ minutes. Procedures Date of Service Date of Service: 05/28/23
[2023-05-28 09:40] LABS: Hematocrit 37.3 % (42.0-52.0); Hemoglobin 13.1 g/dl (14.0-18.0); Mean Corpuscular HGB Conc 35.1 g/dl (31.0-36.0); Mean Corpuscular Volume 102.5 fL (80.0-98.0); Mean Platelet Volume 8.3 fL (9.4-12.4); Platelet Count 124 X10*3/uL (160-400); Red Blood Count 3.64 X10*6/uL (4.60-5.80); Red Cell Distribution Width 13.8 % (11.0-16.0); White Blood Count 6.2 X10*3/uL (4.8-10.8)
[2023-05-28 09:55] LABS: Anion Gap 13 (12-20); Blood Urea Nitrogen 8 mg/dL (9-16); Calcium 9.2 mg/dL (8.4-10.2); Carbon Dioxide 26 mmol/L (22-29); Chloride 100 mmol/L (96-108); Creatinine Clr Calc Pharmacy 107.4; Estimated Glomerular Filt Rate > 60; Glucose Random 96 mg/dL (60-115); Potassium 3.4 mmol/L (3.3-5.1); Sodium 136 mmol/L (135-145)
--- NOTE | 2023-05-28 10:00 | PC.NURSE ---
PT'S L LEG IS EXTREMELY DRY WITH A LARGE OPEN AREA WITH YELLOW DRAINAGE AND IS SWOLLEN. R LEG IS VERY DRY, NO OPEN AREAS/DRAINAGE NOTED. PT AWARE OF PLAN OF CARE FOR ADMISSION.
[2023-05-28] MEDS: 0.9 % Sodium Chloride Flush 3 ML SYRINGE IVFLUSH ×3 (10:13→19:33)
[2023-05-28] MEDS: Thiamine HCL 100 MG TABLET PO (10:13)
[2023-05-28] MEDS: Propranolol HCL LA 60 MG CAP.SA.24H 120 MG PO (10:13)
[2023-05-28] MEDS: Gabapentin 100 MG CAPSULE PO ×2 (10:14→20:04)
[2023-05-28] MEDS: Acetaminophen 325 MG TABLET 650 MG PO (10:14)
[2023-05-28] MEDS: vancomycin HCL 1,000 MG in 0.9 % Sodium Chloride 250 ML 270 MG IV ×2 (10:14→22:28)
[2023-05-28 10:18] LABS: Erythrocyte Sedimentation Rate 40 MM/HR (0-15)
[2023-05-28 10:32] LABS: Folate 7.7 ng/mL (> or = 4.0); Vitamin B12 274 pg/mL (200-900)
--- NOTE | 2023-05-28 11:27 | MHC.CM.PN ---
PT REPORTS HE RENTS A ROOM IN A BASEMENT AND THERE ARE OTHER HOUSEMATES ON THE MAIN FLOORS HE DENIES USE OF DME OR HOME/COMMUNITY SERVICES HE REPORTS HE IS INDEPENDENT WITH CARE PT DECLINES TO COMPLETE A HCP BUT IS WILLING TO TAKE INFO WHICH WAS PROVIDED THRIVE ASSESSMENT NEGATIVE, HOWEVER PT REPORTS HE WOULD LIKE TO MOVE TO A NEW [place] [id number] PROVIDED PCP: ANTONIA DAVIDSON IMM DELIVERED DCP: HOME ? [facility] REF MADE TO [facility] PT WILL NEED SHUTTLE TRANSPORT PT ALSO STATED HE WOULD LIKE TO DC SOON POSSIBLE HIS DOOR AT HOME IS UNLOCKED
--- NOTE | 2023-05-28 14:54 | MHC.EDTECH ---
I and Miguel gave the patient a bed bath, and clean his feet. we did not see any maggots.
--- NOTE | 2023-05-28 15:08 | PC.NURSE ---
UNABLE TO GIVE RN TO RN REPORT. WILL CALL BACK.
--- NOTE | 2023-05-28 16:49 | PC.NURSE ---
rn to rn report given to joanna. pt aware of plan of care.
--- NOTE | 2023-05-28 17:50 | HO.PM.IMPN ---
Subjective Subjective Date of Service: 05/28/23 Interval History: seen and examined this morning follow up for cellulitis denies fever or chills Review of Systems Review of Systems: Yes all other systems are reviewed and are negative Constitutional Constitutional: Denies chills and Denies fever(s) Gastrointestinal Gastrointestinal: Denies abdominal pain, Denies nausea and Denies vomiting Physical Exam Vital Signs: Vital Signs: Last Vital Signs Temp 97.3 F 05/28/23 17:10 Pulse 65 05/28/23 17:10 Resp 16 05/28/23 17:10 BP 148/74 H 05/28/23 17:10 Pulse Ox 99 05/28/23 17:10 O2 Del Method Room Air 05/28/23 17:10 BMI result Body Mass Index 31.7 Const: General: cooperative, comfortable, no acute distress, alert and awake Nutritional Appearance: average body habitus Orientation/consciousness: patient oriented x3 Resp: Effort & Inspection: normal respiratory effort, able to speak in complete sentences, no respiratory distress and no use of accessory muscles Cardio: Rate: regular rate GI: Inspection: No distended Palpation (GI): Soft to palpation Skin: Other: left lower extremity Neuro: General: patient oriented x3, moves all extremities and CN's II-XI intact bilaterally Objective Data Active Medications Acetaminophen (Acetaminophen 325 Mg Tablet) 650 mg PO Q6H PRN PRN Reason: Pain, Mild (Pain Scale 1-3) Last Admin: 05/28/23 10:14 Dose: 650 mg Documented By: DANILO Docusate Sodium (Docusate Sodium 100 Mg Capsule) 100 mg PO DAILY PRN PRN Reason: Constipation Enoxaparin Sodium (Enoxaparin Sodium 40 Mg/0.4 Ml Syringe) 40 mg SUBCUT Q24H [facility] Last Admin: 05/27/23 20:31 Dose: 40 mg Documented By: JASPAL Gabapentin (Gabapentin 100 Mg Capsule) 100 mg PO TID PRN PRN Reason: Pain, Mild (Pain Scale 1-3) Last Admin: 05/28/23 10:14 Dose: 100 mg Documented By: DANILO Piperacillin Sod/Tazobactam (Sod 3.375 gm/ Sodium Chloride) 50 mls @ 100 mls/hr IV Q6H [facility] Last Admin: 05/28/23 17:23 Dose: 100 mls/hr Documented By: JOSE Vancomycin HCl 1,000 mg/ (Sodium Chloride) 270 mls @ 270 mls/hr IV Q12H [facility] Last Infusion: 05/28/23 11:15 Dose: Infused Documented By: DANILO Ondansetron HCl (Ondansetron Hcl 4 Mg/2 Ml Vial) 4 mg IVPUSH Q8H PRN PRN Reason: Nausea and Vomiting Pharmacy Consult (Consult Rx Vancomycin Dosing) 1 each MISCELLANE DAILY PRN PRN Reason: Consult order Propranolol HCl (Propranolol Hcl La 60 Mg Cap.Sa.24h) 120 mg PO DAILY [facility]; Protocol Last Admin: 05/28/23 10:13 Dose: 120 mg Documented By: DANILO Sodium Chloride (0.9 % Sodium Chloride Flush 3 Ml Syringe) 3 ml IVFLUSH QSHIFT [facility] Last Admin: 05/28/23 16:49 Dose: 3 ml Documented By: DANILO Thiamine HCl (Thiamine Hcl 100 Mg Tablet) 100 mg PO DAILY [facility] Last Admin: 05/28/23 10:13 Dose: 100 mg Documented By: DANILO Labs 05/28/23 09:26 05/28/23 09:26 Labs: Laboratory Results - last 24 hr 05/27/23 05/27/23 05/28/23 14:28 17:43 09:26 MCV 102.5 H MCH 36.0 H MCHC 35.1 RDW 13.8 Plt Count 124 L MPV 8.3 L Absolute Nucleated RBC 0.000 Nucleated RBC % (auto) 0.0 ESR 40 H Anion Gap 13 Estim Creat Clear Calc 107.4 Estimated GFR > 60 Random Glucose 96 Calcium 9.2 D C-Reactive Protein 5.59 H Vitamin B12 274 Folate 7.7 Urine Color Yellow Urine Appearance Clear Urine pH 7.0 Ur Specific [place] <= 1.005 Urine Protein Negative Urine Glucose (UA) Negative Urine Ketones Trace Urine Blood Negative Urine Nitrite Negative Ur Leukocyte Esterase Negative Microbiology Microbiology Results: Microbiology 05/27/23 14:28 Blood Culture - Preliminary Blood - Venous No growth after 24 hours. 05/27/23 14:28 Blood Culture - Preliminary Blood - Venous No growth after 24 hours. Assessment and Plan (1) Cellulitis of left lower leg: Status: Acute Plan Pt is a 67-year-old male with a PMH significant for?ischemic cardiomyopathy, hx of pulmonary embolism 10 years ago, hx of DVT, ulcerative colitis, peripheral neuropathy, HTN, and chronic constipation who presents to the ED for evaluation of lower leg redness, purulent discharge, and open wound. Pt will be admitted to the hospital for treatment further evaluation of lower leg cellulitis with IV antibiotics and specialist consultation for wound care. Cellulitis of lower left leg with underlying chronic venous stasis dermatitis associated maggot infestation on arrival Will treat with empiric antibiotics: Vanc and Zosyn X-ray of left fibula and tibia negative for acute fracture, dislocation, or bony erosions Wound care consultpending seen by surgery - no acute surgical intervention required at this time Acute Lactic acidosis, resolved Patient's lactic acid 2.5 with repeat 1.6 Patient given IVF in ED Patient does not meet sepsis criteria Hyponatremia resolved with IVF Chronic macrocytic anemia Stable, at baseline above transfusion threshold Will check B12, folate Thrombocytopenia possibly due to acute infection follow CBC Peripheral neuropathy Continue gabapentin HTN Continue propranolol PT eval - rec STR Full Code Attending:?Dr. Butts DVT Prophylaxis: Lovenox Requires ongoing inpatient stay for ?lower left leg cellulitis with IV antibiotics and provider education specialist consult. Time Spent With Patient Time: Total time managing care of this patient today ____ minutes. Quality Stroke Does the patient have a stroke diagnosis?: No VTE Prior VTE?: No VTE Risk Level:: Medical - moderate - high VTE Device Contraindication: Treatment Not Indicated VTE Drug Contraindication: N/A - Med Ordered
[2023-05-28] MEDS: Enoxaparin Sodium 40 MG/0.4 ML SYRINGE SUBCUT (20:04)
[2023-05-29 04:00] VITALS: BP 153/78; PULSE 60; RESP 16; TEMP 36.6; O2SAT 98
[2023-05-29] MEDS: Piperacillin Sodium/Tazobactam 3.375 GM in 0.9 % Sodium Chloride 50 ML IV ×3 (05:58→17:28)
[2023-05-29 07:12] LABS: Hemoglobin 12.8 g/dl (14.0-18.0); Mean Corpuscular HGB Conc 34.6 g/dl (31.0-36.0); Mean Corpuscular Volume 103.9 fL (80.0-98.0); Mean Platelet Volume 8.5 fL (9.4-12.4); Platelet Count 122 X10*3/uL (160-400); Red Blood Count 3.56 X10*6/uL (4.60-5.80); Red Cell Distribution Width 13.9 % (11.0-16.0); White Blood Count 5.3 X10*3/uL (4.8-10.8)
[2023-05-29 07:22] LABS: Anion Gap 13 (12-20); Blood Urea Nitrogen 9 mg/dL (9-16); Calcium 9.1 mg/dL (8.4-10.2); Carbon Dioxide 27 mmol/L (22-29); Chloride 99 mmol/L (96-108); Creatinine Clr Calc Pharmacy 105.4; Estimated Glomerular Filt Rate > 60; Glucose Random 108 mg/dL (60-115); Potassium 3.6 mmol/L (3.3-5.1); Sodium 135 mmol/L (135-145)
[2023-05-29 07:29] VITALS: BP 146/68; PULSE 61; RESP 18; TEMP 36.2; O2SAT 98
--- NOTE | 2023-05-29 07:34 | HE.PHANOTE ---
RE VANCO SCR REMAINS STABLE. TROUGH WAS 15.0. CORRELATES TO AUC OF 473. CONTINUE CURRENT DOSE. NEXT LEVEL DUE 05/30 @1900. CHANGED MODEL TO MODIFIED GOTI WHICH IS PREDICITING A TROUGH OF 14.4 AND AUC OF 450 THANKS JHON
[2023-05-29] MEDS: Propranolol HCL LA 60 MG CAP.SA.24H 120 MG PO (09:03)
[2023-05-29] MEDS: vancomycin HCL 1,000 MG in 0.9 % Sodium Chloride 250 ML 270 MG IV ×2 (09:03→20:52)
[2023-05-29] MEDS: Thiamine HCL 100 MG TABLET PO (09:04)
[2023-05-29] MEDS: 0.9 % Sodium Chloride Flush 3 ML SYRINGE IVFLUSH ×4 (09:04→23:38)
--- NOTE | 2023-05-29 10:39 | MHC.CM.PN ---
Addendum entered by Kajal Fletcher RN 05/29/23 12:59: clarification pt does have straight medicare/[place] Addendum entered by Kajal Fletcher RN 05/29/23 11:13: [facility] UNABLE TO OFFER, PT HAS BLUE CROSS MEDICARE NOT STRAIGHT MEDICARE, REFERRAL EXPANDED TO FACILITIES THAT TAKE PT'S INSURANCE. Original Note: EMR REVIEWED, PER HOSPITALIST PT WILL REMAIN INPT FOR CONT'D IV ABX, P.T. RECOMMENDING STR, CM MET W/PT WHO REPORTS HE WOULD LIKE STR, PT PREFERS [facility], CM REQUESTED PT THINK ABOUT AND CONTACT A FRIEND WHO MAY BE WILLING TO BE HIS HCP, PT AWARE HE WILL LIKELY NOT GET IN TO STR WITHOUT AND PT REPORTS HE WILL CALL A FRIEND IN [place], REFERRAL PLACED AND CM WILL CONT TO FOLLOW D/C NEEDS.
--- NOTE | 2023-05-29 12:26 | MHC.CLN ---
NUTRITION DIET=REGULAR. APPEAR TO BE EATING 100%. LEFT LOWER EXTREMITY CELLULITIS AND WOUND. WOUND DOES NOT APPEAR PRESSURE RELATED. NO ADDITIONAL NUTRITION INTERVENTIONS AT THIS TIME.
--- NOTE | 2023-05-29 15:17 | HO.WOUND ---
Wound Care Consult Reason for consult: Left lower extremity wound Patient in bed at the time of consult. The wound that was consulted on compared to the picture when the patient first arrived in the ER, looks extremely better. Small serous drainage on the chux pad on the bed. The drainage seemed to be coming from an area on the left posterior proximal calf. Distally there is an area where it was open and draining at the time of admission and was infested with maggots. At this point there is no maggots and the area is very dry with a few dry fissures on the left posterior ankle. Patient stated that this wound was going on for about 6 weeks to 2 months now. The proximal wound bed appearance is large pink granular tissue. Wound edges are well defined and attached. Surrounding tissue is very dry and has a lot of built up skin plaque. Moderate amount of serous drainage. No odor. Wound measured 1.9cm x 1.2 x 0.1cm. Patient did have some swelling but could palpate both his DP and PT pulses. Lotion applied to left leg twice before dressing applied. Alginate ag was cut to wound size and applied to the proximal wound bed. Covered with an ABD pad. The distal area was covered with an ABD pad just to protect newly epithelialized area. Secured with kerlix wrap and krista wrap applied for compression. Recommendation: Cleanse the left proximal posterior calf wound with normal saline or sea clense wound cleanser. Apply alginate ag cut to wound size to the wound bed. Cover with gauze and secure with addison and tape. Change dressing every other day. On the next dressing change, the distal area if skin looks stable may be left open to air. This will give the opportunity for moisturizing the leg daily. It was also mentioned to the patient that he would benefit from ammonium lactate lotion 12% to help with the plaque buildup on his legs. Also spoke to the patient about keeping up with good skin care to help prevent these wounds from reoccurring. Apply krista wraps from the base of the toes to just below the knee to help with edema. Elevate legs when possible. If there are any questions or concerns regarding the wounds, please feel free and reconsult wound care again.
[2023-05-29 15:31] VITALS: BP 149/71; PULSE 65; RESP 15; TEMP 36.1; O2SAT 97
--- NOTE | 2023-05-29 17:51 | HO.PM.IMPN ---
Subjective Subjective Date of Service: 05/29/23 Interval History: Seen and examined this morning Follow-up for cellulitis Denies fever, chills Review of Systems Review of Systems: Yes all other systems are reviewed and are negative Constitutional Constitutional: Denies chills and Denies fever(s) Cardiovascular Cardiovascular: Denies chest pain, Denies palpitations and Denies dyspnea Respiratory Respiratory: Denies cough and Denies dyspnea Gastrointestinal Gastrointestinal: Denies abdominal pain Endocrine Endocrine: Denies palpitations Physical Exam Vital Signs: Vital Signs: Last Vital Signs Temp 96.9 F 05/29/23 15:31 Pulse 65 05/29/23 15:31 Resp 15 05/29/23 15:31 BP 149/71 H 05/29/23 15:31 Pulse Ox 97 05/29/23 15:31 O2 Del Method Room Air 05/29/23 15:31 BMI result Body Mass Index 31.7 Const: General: cooperative, comfortable, no acute distress, alert and awake Nutritional Appearance: average body habitus Orientation/consciousness: patient oriented x3 Resp: Effort & Inspection: normal respiratory effort, able to speak in complete sentences, no respiratory distress and no use of accessory muscles Cardio: Rate: regular rate GI: Inspection: No distended Palpation (GI): Soft to palpation Skin: Other: dry skin b/l lower extremities; chronic thickening of skin b/l lower extremities; similar to previous. no abscess Neuro: General: patient oriented x3, moves all extremities and CN's II-XI intact bilaterally Objective Data Active Medications Acetaminophen (Acetaminophen 325 Mg Tablet) 650 mg PO Q6H PRN PRN Reason: Pain, Mild (Pain Scale 1-3) Last Admin: 05/28/23 10:14 Dose: 650 mg Documented By: DANILO Docusate Sodium (Docusate Sodium 100 Mg Capsule) 100 mg PO DAILY PRN PRN Reason: Constipation Enoxaparin Sodium (Enoxaparin Sodium 40 Mg/0.4 Ml Syringe) 40 mg SUBCUT Q24H [facility] Last Admin: 05/28/23 20:04 Dose: 40 mg Documented By: DOLORES Gabapentin (Gabapentin 100 Mg Capsule) 100 mg PO TID PRN PRN Reason: Pain, Mild (Pain Scale 1-3) Last Admin: 05/28/23 20:04 Dose: 100 mg Documented By: [email or web address] Piperacillin Sod/Tazobactam (Sod 3.375 gm/ Sodium Chloride) 50 mls @ 100 mls/hr IV Q6H [facility] Last Admin: 05/29/23 17:28 Dose: 100 mls/hr Documented By: HORACIO Vancomycin HCl 1,000 mg/ (Sodium Chloride) 270 mls @ 270 mls/hr IV Q12H [facility] Last Infusion: 05/29/23 10:45 Dose: Infused Documented By: HORACIO Ondansetron HCl (Ondansetron Hcl 4 Mg/2 Ml Vial) 4 mg IVPUSH Q8H PRN PRN Reason: Nausea and Vomiting Pharmacy Consult (Consult Rx Vancomycin Dosing) 1 each MISCELLANE DAILY PRN PRN Reason: Consult order Propranolol HCl (Propranolol Hcl La 60 Mg Cap.Sa.24h) 120 mg PO DAILY [facility]; Protocol Last Admin: 05/29/23 09:03 Dose: 120 mg Documented By: HORACIO Sodium Chloride (0.9 % Sodium Chloride Flush 3 Ml Syringe) 3 ml IVFLUSH QSHIFT [facility] Last Admin: 05/29/23 15:21 Dose: 3 ml Documented By: HORACIO Thiamine HCl (Thiamine Hcl 100 Mg Tablet) 100 mg PO DAILY [facility] Last Admin: 05/29/23 09:04 Dose: 100 mg Documented By: HORACIO Labs 05/29/23 06:58 05/29/23 06:58 Labs: Laboratory Results - last 24 hr 05/29/23 06:58 MCV 103.9 H MCH 36.0 H MCHC 34.6 RDW 13.9 Plt Count 122 L MPV 8.5 L Absolute Nucleated RBC 0.000 Nucleated RBC % (auto) 0.0 Anion Gap 13 Estim Creat Clear Calc 105.4 Estimated GFR > 60 Random Glucose 108 Calcium 9.1 Vancomycin Trough 15.0 Microbiology Microbiology Results: Microbiology 05/27/23 14:28 Blood Culture - Preliminary Blood - Venous No growth after 48 hours. 05/27/23 14:28 Blood Culture - Preliminary Blood - Venous No growth after 48 hours. Assessment and Plan (1) Cellulitis of left lower leg: Status: Acute Plan Pt is a 67-year-old male with a PMH significant for?ischemic cardiomyopathy, hx of pulmonary embolism 10 years ago, hx of DVT, ulcerative colitis, peripheral neuropathy, HTN, and chronic constipation who presents to the ED for evaluation of lower leg redness, purulent discharge, and open wound. Pt will be admitted to the hospital for treatment further evaluation of lower leg cellulitis with IV antibiotics and specialist consultation for wound care. Cellulitis of lower left leg with underlying chronic venous stasis dermatitis associated maggot infestation on arrival Continue IV vanc and zosyn, will transition to po doxy likely on discharge X-ray of left fibula and tibia negative for acute fracture, dislocation, or bony erosions seen by surgery - no acute surgical intervention required at this time seen by wound care - see note for recommendations Acute Lactic acidosis, resolved Patient's lactic acid 2.5 with repeat 1.6 Patient given IVF in ED Patient does not meet sepsis criteria Hyponatremia resolved with IVF Chronic macrocytic anemia Stable, at baseline above transfusion threshold B12, folate wnl Thrombocytopenia possibly due to acute infection follow CBC Peripheral neuropathy Continue gabapentin HTN Continue propranolol PT eval - rec STR Full Code Attending:?Dr. Butts DVT Prophylaxis: Lovenox Requires ongoing inpatient stay for ?lower left leg cellulitis with IV antibiotics and digital content specialist consult. Time Spent With Patient Time: Total time managing care of this patient today ____ minutes. Quality Stroke Does the patient have a stroke diagnosis?: No VTE Prior VTE?: No VTE Risk Level:: Medical - moderate - high VTE Device Contraindication: Treatment Not Indicated VTE Drug Contraindication: N/A - Med Ordered
[2023-05-29 18:51] VITALS: BP 121/70; PULSE 65; RESP 15; TEMP 36.9; O2SAT 98
[2023-05-29] MEDS: Enoxaparin Sodium 40 MG/0.4 ML SYRINGE SUBCUT (20:51)
[2023-05-29] MEDS: Acetaminophen 325 MG TABLET 650 MG PO (20:52)
[2023-05-29] MEDS: Gabapentin 100 MG CAPSULE PO (20:52)
--- NOTE | 2023-05-29 22:20 | P.CNID_ITS ---
History of Present Illness Data of Consult Service Date: 05/29/23 Requesting physician: Amada Collazo Primary Care Provider: Katy Peters MD [facility] Reason for consult: Left foot scaly dermatitis with maggots He presents after someone did wellness check and he was found to have hygiene challenges in his basement apartments. Patient says it is the upstairs neighbors fault . He has maggots and feces reported on leg He has no fever or chills or leukocytosis or spreading cellulitis. Review of Systems 2 Review of Systems: Yes all other systems are reviewed and are negative [facility] Past Medical History Medical History Depression Benign essential tremor Chronic neurologic disease DVT (deep venous thrombosis) Pulmonary embolism Anemia IBS (irritable bowel syndrome) Colitis Ischemic cardiomyopathy Family History Family history: reviewed and not pertinent Social History Social History Household Members: Friend(s) Housing: House Alcohol intake: current Patient Tobacco Use Status: Former Tobacco user Advance Directives Date on File: 05/28/23 service: No Meds Allergies Allergy/AdvReac Type Severity Reaction Status Date / Time No Known Allergies Allergy Unverified 04/06/23 23:39 [No Known Allergies*] Active Medications: Current Medications Acetaminophen (Acetaminophen 325 Mg Tablet) 650 mg PO Q6H PRN PRN Reason: Pain, Mild (Pain Scale 1-3) Last Admin: 05/29/23 20:52 Dose: 650 mg Docusate Sodium (Docusate Sodium 100 Mg Capsule) 100 mg PO DAILY PRN PRN Reason: Constipation Enoxaparin Sodium (Enoxaparin Sodium 40 Mg/0.4 Ml Syringe) 40 mg SUBCUT Q24H [facility] Last Admin: 05/29/23 20:51 Dose: 40 mg Gabapentin (Gabapentin 100 Mg Capsule) 100 mg PO TID PRN PRN Reason: Pain, Mild (Pain Scale 1-3) Last Admin: 05/29/23 20:52 Dose: 100 mg Piperacillin Sod/Tazobactam (Sod 3.375 gm/ Sodium Chloride) 50 mls @ 100 mls/hr IV Q6H [facility] Last Infusion: 05/29/23 18:02 Dose: Infused Vancomycin HCl 1,000 mg/ (Sodium Chloride) 270 mls @ 270 mls/hr IV Q12H [facility] Last Infusion: 05/29/23 21:52 Dose: Infused Ondansetron HCl (Ondansetron Hcl 4 Mg/2 Ml Vial) 4 mg IVPUSH Q8H PRN PRN Reason: Nausea and Vomiting Pharmacy Consult (Consult Rx Vancomycin Dosing) 1 each MISCELLANE DAILY PRN PRN Reason: Consult order Propranolol HCl (Propranolol Hcl La 60 Mg Cap.Sa.24h) 120 mg PO DAILY [facility]; Protocol Last Admin: 05/29/23 09:03 Dose: 120 mg Sodium Chloride (0.9 % Sodium Chloride Flush 3 Ml Syringe) 3 ml IVFLUSH QSHIFT [facility] Last Admin: 05/29/23 20:53 Dose: 3 ml Thiamine HCl (Thiamine Hcl 100 Mg Tablet) 100 mg PO DAILY [facility] Last Admin: 05/29/23 09:04 Dose: 100 mg Home Medications Medication Instructions Recorded Confirmed Last Taken Type gabapentin 100 mg capsule 100 mg PO TID PRN Pain 03/19/23 05/27/23 Unknown History phenelzine 15 mg tablet 15 mg PO TID 03/20/23 05/27/23 1 Week Ago History ~05/20/23 propranolol 120 mg capsule,24 120 mg PO DAILY 05/27/23 05/27/23 Unknown History hr,extended release thiamine HCl (vitamin B1) 100 mg 100 mg PO DAILY 05/27/23 05/27/23 Unknown History tablet Physical Exam 2 Vital Signs: Vital Signs: Last Vital Signs Temp 98.5 F 05/29/23 18:51 Pulse 65 05/29/23 18:51 Resp 15 05/29/23 18:51 BP 121/70 05/29/23 18:51 Pulse Ox 98 05/29/23 18:51 O2 Del Method Room Air 05/29/23 18:51 BMI result Body Mass Index 31.7 Extrem: Other: scaly dermatitis left foot some mild irritative dermatitis Results Labs 05/29/23 06:58 05/29/23 06:58 Labs: Short CBC 05/29/23 Range/Units 06:58 WBC 5.3 (4.8-10.8) X10*3/uL Hgb 12.8 L (14.0-18.0) g/dl Hct 37.0 L (42.0-52.0) % Plt Count 122 L (160-400) X10*3/uL BMP 05/29/23 06:58 Sodium 135 Potassium 3.6 Chloride 99 Carbon Dioxide 27 BUN 9 Creatinine 0.82 Calcium 9.1 Microbiology Microbiology Results: Microbiology 05/27/23 14:28 Blood - Venous Blood Culture - Preliminary No growth after 48 hours. 05/27/23 14:28 Blood - Venous Blood Culture - Preliminary No growth after 48 hours. Assessment and Plan (1) Cellulitis of left lower leg: Status: Acute Small abrasion and irritant dermatitis from hygiene difficulties,dry skin leading to small ulcer. There is no evidence of OM or toxic cellulitis now. (2) Non-healing wound of left lower extremity: Status: Acute (3) Infestation by maggots: Status: Acute Plan Po Doxycycline for two weeks. Topical cleansing and care, VNA at home if able. Time Spent With Patient Time: Total time managing care of this patient today ____ minutes.
--- NOTE | 2023-05-29 23:22 | PC.NURSE ---
Care assumed 19:00. Patient seen on S3/med-surg for LLE cellultiis. 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 Pain reported 2/10, medicated with tylenol and gabapentin with +effect reported. No distress noted. Handoff report given 23:00.
[2023-05-29] MEDS: Doxycycline Monohydrate 100 MG CAPSULE PO (23:33)
[2023-05-30 04:00] VITALS: BP 156/75; PULSE 57; RESP 16; TEMP 36.1; O2SAT 99
[2023-05-30 05:58] LABS: Hematocrit 35.8 % (42.0-52.0); Hemoglobin 12.5 g/dl (14.0-18.0); Mean Corpuscular HGB Conc 34.9 g/dl (31.0-36.0); Mean Corpuscular Hemoglobin 36.8 pg (27.0-33.0); Mean Corpuscular Volume 105.3 fL (80.0-98.0); Mean Platelet Volume 8.4 fL (9.4-12.4); Platelet Count 121 X10*3/uL (160-400); Red Cell Distribution Width 13.7 % (11.0-16.0); White Blood Count 4.9 X10*3/uL (4.8-10.8)
[2023-05-30 06:17] LABS: Creatinine Clr Calc Pharmacy 106.7; Estimated Glomerular Filt Rate > 60
[2023-05-30 07:45] VITALS: BP 158/77; PULSE 58; RESP 18; TEMP 36.6; O2SAT 100
[2023-05-30] MEDS: Propranolol HCL LA 60 MG CAP.SA.24H 120 MG PO (10:00)
[2023-05-30] MEDS: Thiamine HCL 100 MG TABLET PO (10:01)
[2023-05-30] MEDS: 0.9 % Sodium Chloride Flush 3 ML SYRINGE IVFLUSH (10:01)
[2023-05-30] MEDS: Doxycycline Monohydrate 100 MG CAPSULE PO ×2 (10:01→21:31)
[2023-05-30] MEDS: Gabapentin 100 MG CAPSULE PO (10:07)
--- NOTE | 2023-05-30 11:19 | P.DS_ITS ---
<Statement entered by Luke Francis MD - 06/01/23 07:07> Patient did not leave the day of thsi document -Please assign discharge summary to provider on case discharge day. DS: Providers Provider Date of Service: 05/30/23 Primary care physician: Katy Peters MD Consults: 05/27/23 19:25 Consult to General Surgery Stat Consulting Provider: Zuhair Good Reason for consultation: necrotic leg wound with maggots Has provider been notified: Yes 05/28/23 17:59 Consult to Infectious Diseases Routine Consulting Provider: [facility] Infectious Disease Reason for consultation: cellulitis DS: Diagnosis Discharge Diagnosis (1) Cellulitis of left lower leg: Status: Acute (2) Non-healing wound of left lower extremity: Status: Acute (3) Infestation by maggots: Status: Acute DS: Summary Hospital Course Hospital Course: see d/c summary from Keyana Palomo from 06/01/2023 Time Spent with Patient Time attestation: Total time managing care of this patient today ____ minutes. Discharge coordination time: Greater than 30 minutes Quality: Safe Use of Opioids Does Pt have an Active Cancer Diagnosis on the Problem List?: No Quality: Stroke Does the patient have a stroke diagnosis?: No Physical Exam Vital Signs: Vital Signs: Last Vital Signs Temp 97.8 F 05/30/23 07:45 Pulse 58 05/30/23 07:45 Resp 18 05/30/23 07:45 BP 158/77 H 05/30/23 07:45 Pulse Ox 100 05/30/23 07:45 O2 Del Method Room Air 05/30/23 07:45 BMI result Body Mass Index 31.7 DS: Data Data Completed and Pending Labs on day of discharge: Laboratory Results - last 24 hr 05/30/23 05:51 WBC 4.9 RBC 3.40 L Hgb 12.5 L Hct 35.8 L MCV 105.3 H MCH 36.8 H MCHC 34.9 RDW 13.7 Plt Count 121 L MPV 8.4 L Absolute Nucleated RBC 0.000 Nucleated RBC % (auto) 0.0 Creatinine 0.81 Estim Creat Clear Calc 106.7 Estimated GFR > 60 Preliminary micro results at discharge 05/27/23 14:28 Blood Culture - Preliminary Blood - Venous No growth after 48 hours. 05/27/23 14:28 Blood Culture - Preliminary Blood - Venous No growth after 48 hours. Discharge Plan Discharge Anticipated Discharge Date/Time: 06/01/23 12:28 Patient Disposition: Home, Self-Care Discharge Diagnosis: left leg cellulitis Referrals: Katy Peters MD [Primary Care Provider] - 1 Week Hazel Bryd MD [Physician] - 1 Week Discharge Medications: New ammonium lactate 12 % cream 1 appl topical DAILY Qty: 280 0RF (DME) Ultra-Light Rollator Misc See Rx Instructions .Route Qty: 1 0RF Rx Instructions: As directed doxycycline hyclate 100 mg tablet 100 mg PO BID 12 Days Qty: 24 0RF Continued thiamine HCl (vitamin B1) 100 mg tablet 100 mg PO DAILY propranolol 120 mg capsule,extended release 24 hr 120 mg PO DAILY gabapentin 100 mg capsule 100 mg PO TID PRN (Reason: Pain) phenelzine 15 mg tablet 15 mg PO TID Discharge Orders: Discharge Order (Routine); Ordered 06/01/23 Ordered By: Keyana Palomo Diet: Advance to usual diet Activity on Discharge: As tolerated Stand Alone Forms: Patient Portal Discharge page Care Plan Goals: resolution of leg wound Health Concerns: left leg cellulitis Plan of Treatment: take antibiotics as prescribed use ammonium lactate cream to both lower legs daily call to schedule follow up with PCP Alginate alginate cut to wound size and apply to the proximal wound, Cover with an ABD pad. Secure with kerlix wrap and krista wrap applied for compression. Keep legs elevated. call to schedule follow up appointment in wound care clinic Assessment: see discharge summary Discharge Date/Time: 06/01/23 13:55
--- NOTE | 2023-05-30 14:56 | HO.PM.IMPN ---
Subjective Subjective Date of Service: 05/30/23 Interval History: seen and examined this morning follow up for cellulitis no overnight events denies fever, chills Review of Systems Review of Systems: Yes all other systems are reviewed and are negative Constitutional Constitutional: Denies chills and Denies fever(s) Cardiovascular Cardiovascular: Denies chest pain, Denies palpitations and Denies dyspnea Respiratory Respiratory: Denies cough and Denies dyspnea Endocrine Endocrine: Denies palpitations Physical Exam Vital Signs: Vital Signs: Last Vital Signs Temp 97.8 F 05/30/23 07:45 Pulse 58 05/30/23 07:45 Resp 18 05/30/23 07:45 BP 158/77 H 05/30/23 07:45 Pulse Ox 100 05/30/23 07:45 O2 Del Method Room Air 05/30/23 07:45 BMI result Body Mass Index 31.7 Const: General: cooperative, comfortable, no acute distress, alert and awake Nutritional Appearance: average body habitus Orientation/consciousness: patient oriented x3 Resp: Effort & Inspection: normal respiratory effort, able to speak in complete sentences, no respiratory distress and no use of accessory muscles Cardio: Rate: regular rate GI: Inspection: No distended Palpation (GI): Soft to palpation and nontender Skin: Other: left leg - the area is very dry with a few dry fissures on the left posterior ankle. wound bed appearance is large pink granular tissue. Wound edges are well defined and attached. Surrounding tissue is very dry and has a lot of built up skin plaque Neuro: General: patient oriented x3, moves all extremities and CN's II-XI intact bilaterally Objective Data Active Medications Acetaminophen (Acetaminophen 325 Mg Tablet) 650 mg PO Q6H PRN PRN Reason: Pain, Mild (Pain Scale 1-3) Last Admin: 05/29/23 20:52 Dose: 650 mg Documented By: YASH Docusate Sodium (Docusate Sodium 100 Mg Capsule) 100 mg PO DAILY PRN PRN Reason: Constipation Doxycycline Monohydrate (Doxycycline Monohydrate 100 Mg Capsule) 100 mg PO Q12H [facility] Last Admin: 05/30/23 10:01 Dose: 100 mg Documented By: ALPHONSO Enoxaparin Sodium (Enoxaparin Sodium 40 Mg/0.4 Ml Syringe) 40 mg SUBCUT Q24H [facility] Last Admin: 05/29/23 20:51 Dose: 40 mg Documented By: YASH Gabapentin (Gabapentin 100 Mg Capsule) 100 mg PO TID PRN PRN Reason: Pain, Mild (Pain Scale 1-3) Last Admin: 05/30/23 10:07 Dose: 100 mg Documented By: ALPHONSO Ondansetron HCl (Ondansetron Hcl 4 Mg/2 Ml Vial) 4 mg IVPUSH Q8H PRN PRN Reason: Nausea and Vomiting Propranolol HCl (Propranolol Hcl La 60 Mg Cap.Sa.24h) 120 mg PO DAILY [facility]; Protocol Last Admin: 05/30/23 10:00 Dose: 120 mg Documented By: ALPHONSO Sodium Chloride (0.9 % Sodium Chloride Flush 3 Ml Syringe) 3 ml IVFLUSH QSHIFT [facility] Last Admin: 05/30/23 10:01 Dose: 3 ml Documented By: ALPHONSO Thiamine HCl (Thiamine Hcl 100 Mg Tablet) 100 mg PO DAILY [facility] Last Admin: 05/30/23 10:01 Dose: 100 mg Documented By: ALPHONSO Labs 05/30/23 05:51 05/30/23 05:51 Labs: Laboratory Results - last 24 hr 05/30/23 05:51 MCV 105.3 H MCH 36.8 H MCHC 34.9 RDW 13.7 Plt Count 121 L MPV 8.4 L Absolute Nucleated RBC 0.000 Nucleated RBC % (auto) 0.0 Estim Creat Clear Calc 106.7 Estimated GFR > 60 Microbiology Microbiology Results: Microbiology 05/27/23 14:28 Blood Culture - Preliminary Blood - Venous No growth after 48 hours. 05/27/23 14:28 Blood Culture - Preliminary Blood - Venous No growth after 48 hours. Assessment and Plan (1) Cellulitis of left lower leg: Status: Acute Plan Pt is a 67-year-old male with a PMH significant for?ischemic cardiomyopathy, hx of pulmonary embolism 10 years ago, hx of DVT, ulcerative colitis, peripheral neuropathy, HTN, and chronic constipation who presents to the ED for evaluation of lower leg redness, purulent discharge, and open wound. Pt will be admitted to the hospital for treatment further evaluation of lower leg cellulitis with IV antibiotics and specialist consultation for wound care. Cellulitis of lower left leg with underlying chronic venous stasis dermatitis associated maggot infestation on arrival started on IV vanc and zosyn, transitioned to po doxy X-ray of left fibula and tibia negative for acute fracture, dislocation, or bony erosions seen by surgery - no acute surgical intervention required at this time seen by wound care - see note for recommendations Acute Lactic acidosis resolved with IVF Patient does not meet sepsis criteria Hyponatremia resolved with IVF Chronic macrocytic anemia Stable, at baseline above transfusion threshold B12, folate wnl Thrombocytopenia possibly due to acute infection follow CBC Peripheral neuropathy Continue gabapentin essential tremor Continue propranolol PT eval - rec STR Full Code Attending:?Dr. Francis DVT Prophylaxis: Lovenox Requires ongoing inpatient stay for ?lower left leg cellulitis with IV antibiotics and appraisal specialist consult. Time Spent With Patient Time: Total time managing care of this patient today ____ minutes. Quality Stroke Does the patient have a stroke diagnosis?: No VTE Prior VTE?: No VTE Risk Level:: Medical - moderate - high VTE Device Contraindication: Treatment Not Indicated VTE Drug Contraindication: N/A - Med Ordered
[2023-05-30 15:30] VITALS: BP 168/72; PULSE 67; RESP 18; TEMP 36.7; O2SAT 99
[2023-05-30 19:08] VITALS: BP 132/69; PULSE 67; RESP 18; TEMP 36.9; O2SAT 97
[2023-05-30] MEDS: Enoxaparin Sodium 40 MG/0.4 ML SYRINGE SUBCUT (21:31)
[2023-05-31 03:49] VITALS: BP 152/78; PULSE 64; RESP 16; TEMP 36; O2SAT 97
[2023-05-31 07:47] VITALS: BP 165/85; PULSE 58; RESP 18; TEMP 36.2; O2SAT 100
[2023-05-31] MEDS: Propranolol HCL LA 60 MG CAP.SA.24H 120 MG PO (09:20)
[2023-05-31] MEDS: Thiamine HCL 100 MG TABLET PO (09:20)
[2023-05-31] MEDS: Doxycycline Monohydrate 100 MG CAPSULE PO ×2 (09:20→21:09)
[2023-05-31] MEDS: Gabapentin 100 MG CAPSULE PO (09:36)
--- NOTE | 2023-05-31 12:14 | MHC.CM.PN ---
PT DECLINED TO DC TO STR YESTERDAY STATING HE NEEDED TO GET HOME TO MAKE SURE HIS BELONGINGS WERE SECURED HE INDICATED HE USES [facility] AND THEY WILL DELIVER HIS MEDS CM CALLED THE PHARMACY YESTERDAY, THEY ARE CLOSED ON WEEKENDS PT INDICATED THERE WOULD BE NO WAY FOR HIM TO GET HIS MEDS PT CONTINUES TO REFUSE STR [facility] UNABLE TO PROVIDE A DOSE OF PTS ABX TO SEND HOME WITH PT PT WILL REMAIN UNTIL TOMORROW WHEN [facility] IS OPEN TO ENSURE HE CONTINUES HIS ABX PRESCRIBED PT WILL THEN TAKE THE SHUTTLE HOME
--- NOTE | 2023-05-31 13:54 | HO.PM.IMPN ---
Subjective Subjective Date of Service: 05/31/23 Interval History: seen and examined this morning follow up for cellulitis leg improving, no fever, chills Review of Systems Review of Systems: Yes all other systems are reviewed and are negative Constitutional Constitutional: Denies chills and Denies fever(s) Cardiovascular Cardiovascular: Denies chest pain, Denies palpitations and Denies dyspnea Respiratory Respiratory: Denies cough and Denies dyspnea Gastrointestinal Gastrointestinal: Denies abdominal pain Endocrine Endocrine: Denies palpitations Physical Exam Vital Signs: Vital Signs: Last Vital Signs Temp 97.1 F 05/31/23 07:47 Pulse 58 05/31/23 07:47 Resp 18 05/31/23 07:47 BP 165/85 H 05/31/23 07:47 Pulse Ox 100 05/31/23 07:47 O2 Del Method Room Air 05/31/23 07:47 BMI result Body Mass Index 31.7 Const: General: cooperative, comfortable, no acute distress, alert and awake Nutritional Appearance: average body habitus Orientation/consciousness: patient oriented x3 Resp: Effort & Inspection: normal respiratory effort, able to speak in complete sentences, no respiratory distress and no use of accessory muscles Cardio: Rate: regular rate GI: Inspection: No distended Palpation (GI): Soft to palpation and nontender Skin: Other: left leg, dry skin; no drainage Neuro: General: patient oriented x3, moves all extremities and CN's II-XI intact bilaterally Objective Data Active Medications Acetaminophen (Acetaminophen 325 Mg Tablet) 650 mg PO Q6H PRN PRN Reason: Pain, Mild (Pain Scale 1-3) Last Admin: 05/29/23 20:52 Dose: 650 mg Documented By: YASH Docusate Sodium (Docusate Sodium 100 Mg Capsule) 100 mg PO DAILY PRN PRN Reason: Constipation Doxycycline Monohydrate (Doxycycline Monohydrate 100 Mg Capsule) 100 mg PO Q12H [facility] Last Admin: 05/31/23 09:20 Dose: 100 mg Documented By: ALPHONSO Enoxaparin Sodium (Enoxaparin Sodium 40 Mg/0.4 Ml Syringe) 40 mg SUBCUT Q24H [facility] Last Admin: 05/30/23 21:31 Dose: 40 mg Documented By: AMAYA Gabapentin (Gabapentin 100 Mg Capsule) 100 mg PO TID PRN PRN Reason: Pain, Mild (Pain Scale 1-3) Last Admin: 05/31/23 09:36 Dose: 100 mg Documented By: ALPHONSO Ondansetron HCl (Ondansetron Hcl 4 Mg/2 Ml Vial) 4 mg IVPUSH Q8H PRN PRN Reason: Nausea and Vomiting Propranolol HCl (Propranolol Hcl La 60 Mg Cap.Sa.24h) 120 mg PO DAILY [facility]; Protocol Last Admin: 05/31/23 09:20 Dose: 120 mg Documented By: ALPHONSO Sodium Chloride (0.9 % Sodium Chloride Flush 3 Ml Syringe) 3 ml IVFLUSH QSHIFT [facility] Last Admin: 05/31/23 08:59 Dose: Not Given Documented By: ALPHONSO Non-Admin Reason: No Access Thiamine HCl (Thiamine Hcl 100 Mg Tablet) 100 mg PO DAILY [facility] Last Admin: 05/31/23 09:20 Dose: 100 mg Documented By: ALPHONSO Labs 05/30/23 05:51 05/30/23 05:51 Assessment and Plan (1) Cellulitis of left lower leg: Status: Acute Plan Pt is a 67-year-old male with a PMH significant for?ischemic cardiomyopathy, hx of pulmonary embolism 10 years ago, hx of DVT, ulcerative colitis, peripheral neuropathy, HTN, and chronic constipation who presents to the ED for evaluation of lower leg redness, purulent discharge, and open wound. Pt will be admitted to the hospital for treatment further evaluation of lower leg cellulitis with IV antibiotics and specialist consultation for wound care. Cellulitis of lower left leg with underlying chronic venous stasis dermatitis associated maggot infestation on arrival started on IV vanc and zosyn, seen by ID and transitioned to po doxy X-ray of left fibula and tibia negative for acute fracture, dislocation, or bony erosions seen by surgery - no acute surgical intervention required at this time seen by wound care - see note for recommendations Acute Lactic acidosis resolved with IVF Patient does not meet sepsis criteria Hyponatremia resolved with IVF Chronic macrocytic anemia Stable, at baseline above transfusion threshold B12, folate wnl Thrombocytopenia possibly due to acute infection platelets have remained stable Peripheral neuropathy Continue gabapentin essential tremor Continue propranolol PT eval - rec STR - patient declines STR and home services Full Code Attending:?Dr. Hoyt DVT Prophylaxis: Lovenox Requires ongoing inpatient stay for ?lower left leg cellulitis Time Spent With Patient Time: Total time managing care of this patient today ____ minutes. Quality Stroke Does the patient have a stroke diagnosis?: No VTE Prior VTE?: No VTE Risk Level:: Medical - moderate - high VTE Device Contraindication: Treatment Not Indicated VTE Drug Contraindication: N/A - Med Ordered
[2023-05-31 15:33] VITALS: BP 139/67; PULSE 63; RESP 18; TEMP 36.2; O2SAT 97
[2023-05-31 19:15] VITALS: BP 125/63; PULSE 59; RESP 18; TEMP 35.7; O2SAT 98
[2023-05-31] MEDS: Enoxaparin Sodium 40 MG/0.4 ML SYRINGE SUBCUT (21:09)
[2023-06-01 03:33] VITALS: BP 144/74; PULSE 59; RESP 18; TEMP 36.4; O2SAT 97
[2023-06-01 07:45] VITALS: BP 159/79; PULSE 57; RESP 18; TEMP 36.3; O2SAT 98
[2023-06-01] MEDS: Propranolol HCL LA 60 MG CAP.SA.24H 120 MG PO (09:08)
[2023-06-01] MEDS: Doxycycline Monohydrate 100 MG CAPSULE PO (09:08)
[2023-06-01] MEDS: Thiamine HCL 100 MG TABLET PO (09:08)
[2023-06-01] MEDS: Ammonium Lactate 12 % Lotion 226 GM BOTTLE 1 APPL TOPICAL (09:15)
--- NOTE | 2023-06-01 12:29 | PM.DS ---
DS: Providers Provider Date of Service: 06/01/23 Date of admission: 05/27/23 19:37 Primary care physician: Katy Peters MD Consults: 05/27/23 19:25 Consult to General Surgery Stat Consulting Provider: Zuhair Good Reason for consultation: necrotic leg wound with maggots Has provider been notified: Yes 05/28/23 17:59 Consult to Infectious Diseases Routine Consulting Provider: [facility] Infectious Disease Reason for consultation: cellulitis DS: Diagnosis Discharge Diagnosis (1) Cellulitis of left lower leg: Status: Acute DS: Summary Hospital Course Hospital Course: From H&P on day of admission Pt is a 67-year-old male with a PMH significant for?ischemic cardiomyopathy, hx of pulmonary embolism 10 years ago, hx of DVT, ulcerative colitis, peripheral neuropathy, HTN, and chronic constipation who presents to the ED for evaluation of lower leg redness, purulent discharge, and open wound. Patient states he used to be very active and ran all the time but since he had a DVT and pulmonary embolism 10 years ago has been much less active. Complains of chronic peripheral neuropathy and ?poor blood flow?. Patient reports he noticed 2 weeks ago redness and bleeding from open wound on his lower left leg. More recently patient has noticed purulent drainage from the area and that his wound was infested with maggots. Patient complains of difficulty walking and pain secondary to peripheral neuropathy. Swelling in legs is chronic, at baseline. Patient lives in a house in a room in a basement with multiple other housemates. States one of his housemates called the ambulance after looking at his leg. Patient denies fever, chills. No nausea, vomiting, diarrhea, abdominal pain. Denies shortness of breath. No chest pain/pressure, palpitations. In the ED patient was afebrile but slightly hypertensive at 145/84. Labs were significant for H&H of 13.7/39.0, hyponatremia of 132, chloride 93, lactic acid 2.5 with repeat 1.4, bilirubin 1.6, AST 49. X-ray of left tibia and fibula with no acute fracture dislocation or bony erosions. EKG demonstrated normal sinus rhythm with non specific t-wave inversions and no evidence of ST elevations or depressions. Pt was treated with IVF and Zosyn. Pt will be admitted to the hospital for treatment further evaluation of lower leg cellulitis with IV antibiotics and specialist consultation for wound care. Cellulitis of lower left leg with underlying chronic venous stasis dermatitis small amount of maggot activity noted on admission. was initially treated with IV vancomycin and zosyn, will transition to po doxy likely on discharge as recommended by ID. X-ray of left fibula and tibia negative for acute fracture, dislocation, or bony erosions. seen by surgery - no acute surgical intervention required at this time. seen by wound care - Cleanse the left proximal posterior calf wound with normal saline or sea clense wound cleanser. Apply alginate cut to wound size to the wound bed. Cover with gauze and secure with addison and tape. Change dressing every other day. Can use ammonium lactate lotion 12% to help with the plaque buildup on legs. Apply krista wraps from the base of the toes to just below the knee to help with edema. Elevate legs when possible. Recommend outpatient follow up with wound care clinic Acute Lactic acidosis, resolved Patient's lactic acid 2.5 with repeat 1.6. Patient given IVF in ED, did not meet sepsis criteria Hyponatremia resolved with IVF Chronic macrocytic anemia Stable, at baseline above transfusion threshold. B12, folate wnl Thrombocytopenia possibly due to acute infection. platelet level has remained stable. outpatient follow up Was evaluated by Physical therapy who recommended short-term rehab. Patient has declined short-term rehab and prefers to return home. Home services were recommended however, He declines home VNA or PT services. of note, VNA has attempted to see him multiple times in the past and he has never allowed them in. Time Spent with Patient Time attestation: Total time managing care of this patient today ____ minutes. Discharge coordination time: Greater than 30 minutes Quality: Safe Use of Opioids Does Pt have an Active Cancer Diagnosis on the Problem List?: No Quality: Stroke Does the patient have a stroke diagnosis?: No Physical Exam Vital Signs: Vital Signs: Last Vital Signs Temp 97.4 F 06/01/23 07:45 Pulse 57 06/01/23 07:45 Resp 18 06/01/23 07:45 BP 159/79 H 06/01/23 07:45 Pulse Ox 98 06/01/23 07:45 O2 Del Method Room Air 06/01/23 07:45 BMI result Body Mass Index 31.7 DS: Data Data Completed and Pending Labs on day of discharge: Preliminary micro results at discharge 05/27/23 14:28 Blood Culture - Preliminary Blood - Venous No growth after 48 hours. 05/27/23 14:28 Blood Culture - Preliminary Blood - Venous No growth after 48 hours. Discharge Plan Discharge Anticipated Discharge Date/Time: 06/01/23 12:28 Patient Disposition: Home, Self-Care Discharge Diagnosis: left leg cellulitis Referrals: Katy Peters MD [Primary Care Provider] - 1 Week Hazel Byrd MD [Physician] - 1 Week Discharge Medications: New ammonium lactate 12 % cream 1 appl topical DAILY Qty: 280 0RF (DME) Ultra-Light Rollator Misc See Rx Instructions .Route Qty: 1 0RF Rx Instructions: As directed doxycycline hyclate 100 mg tablet 100 mg PO BID 12 Days Qty: 24 0RF Continued thiamine HCl (vitamin B1) 100 mg tablet 100 mg PO DAILY propranolol 120 mg capsule,extended release 24 hr 120 mg PO DAILY gabapentin 100 mg capsule 100 mg PO TID PRN (Reason: Pain) phenelzine 15 mg tablet 15 mg PO TID Discharge Orders: Discharge Order (Routine); Ordered 06/01/23 Ordered By: Keyana Palomo Diet: Advance to usual diet Activity on Discharge: As tolerated Stand Alone Forms: Patient Portal Discharge page Care Plan Goals: resolution of leg wound Health Concerns: left leg cellulitis Plan of Treatment: take antibiotics as prescribed use ammonium lactate cream to both lower legs daily call to schedule follow up with PCP Alginate alginate cut to wound size and apply to the proximal wound, Cover with an ABD pad. Secure with kerlix wrap and krista wrap applied for compression. Keep legs elevated. call to schedule follow up appointment in wound care clinic Assessment: see discharge summary Discharge Date/Time: 06/01/23 13:55
--- NOTE | 2023-06-01 12:43 | MHC.CM.PN ---
DP: PT HAS BEEN MEDICALLY CLEARED FOR DC HOME, NO SERVICES. PT WILL P/U PRESCRIPTIONS AT [facility] IS BOOKED FOR TRANSPORT HOME AT 2 PM.
== END 2023-06-01 13:55 | disposition home or self-care (01) | DRG 603 ==
LOC: HO.ED 16:58 → HO.EDOVER 19:50 → HO.S3 05-28 14:12
PROVIDERS: Physician Assistant Medical; Admitting Provider Student in an Organized Health Care Education/Training Program; Emergency Provider Student in an Organized Health Care Education/Training Program; PCP Internal Medicine; Visit Provider Nurse Practitioner Acute Care
DX: L03.116 Cellulitis of left lower limb (principal); E87.1 Hypo-osmolality and hyponatremia; E87.21 Acute metabolic acidosis; I87.312 Chronic venous hypertension (idiopathic) with ulcer of left lower extremity; I87.321 Chronic venous hypertension (idiopathic) with inflammation of right lower extremity; D69.59 Other secondary thrombocytopenia; G25.0 Essential tremor; L97.529 Non-pressure chronic ulcer of other part of left foot with unspecified severity; B87.1 Wound myiasis; G62.9 Polyneuropathy, unspecified; I25.5 Ischemic cardiomyopathy; D53.9 Nutritional anemia, unspecified; Z87.891 Personal history of nicotine dependence; Z79.899 Other long term (current) drug therapy
CPT/HCPCS: 36415; 73590; 80048; 80053; 80202; 81003; 82565; 82607; 82746; 83605; 85025; 85027; 85610; 85652; 86140; 87040; 93005; 97162; 99285; J1650; J2543; J3370

== ENCOUNTER → 2023-05-27 19:37 | Outpatient (BNV) | payer MEDICARE, MEDICAID, SELFPAY | PROVIDERS: Admitting Provider Student in an Organized Health Care Education/Training Program; Emergency Provider Student in an Organized Health Care Education/Training Program; PCP Internal Medicine; Visit Provider Physician Assistant Medical | DX: L03.116 Cellulitis of left lower limb (principal) | CPT/HCPCS: 99223; 99232; 99239 ==

== ENCOUNTER → 2023-05-27 19:37 | Outpatient (BNV) | payer MEDICARE, MEDICAID, SELFPAY | PROVIDERS: Admitting Provider Student in an Organized Health Care Education/Training Program; Emergency Provider Student in an Organized Health Care Education/Training Program; PCP Internal Medicine; Visit Provider Surgery | DX: L03.116 Cellulitis of left lower limb (principal) | CPT/HCPCS: 99222 ==

== ENCOUNTER → 2023-05-27 19:37 | Outpatient (BNV) | payer MEDICARE, MEDICAID, SELFPAY | PROVIDERS: Admitting Provider Student in an Organized Health Care Education/Training Program; Emergency Provider Student in an Organized Health Care Education/Training Program; PCP Internal Medicine; Visit Provider Internal Medicine | DX: L03.116 Cellulitis of left lower limb (principal); S81.802A Unspecified open wound, left lower leg, initial encounter; B87.9 Myiasis, unspecified | CPT/HCPCS: 99221 ==

== ENCOUNTER 2023-07-23 11:36 | Emergency (ER) | payer MEDICARE, MEDICAID, SELFPAY ==
--- NOTE | 2023-07-23 | ECG_ITS ---
Test Reason : fall Blood Pressure : / mmHG Vent. Rate : 083 BPM Atrial Rate : 083 BPM P-R Int : 194 ms QRS Dur : 104 ms QT Int : 420 ms P-R-T Axes : 055 -03 035 degrees QTc Int : 493 ms Normal sinus rhythm Low voltage QRS RSR' or QR pattern in V1 suggests right ventricular conduction delay Abnormal ECG When compared with ECG of 27-MAY-2023 16:39, prior study had limb lead reversal T wave inversion no longer evident in Lateral leads Referred By: Katherine Love Electronically Signed By:ROS WOLF MD
--- NOTE | ~2023-07-23 | CT_ITS ---
Indication: Fall, alcohol EXAMINATION: CT brain, CT cervical spine. Axial imaging with coronal and sagittal reformatted images. This CT examination was performed using dose optimization techniques as appropriate, variously including the following: *Automated exposure control *Adjustment of mA and/or kV according to patient size (this includes techniques or standardized protocols for targeted exams where dose is matched to indication/reason for exam; i.e. extremities or head) *Use of iterative reconstruction technique. Radiation dose [address] brain; There is no midline shift. There is no mass effect. There is no hemorrhage. The basal cisterns appear patent. The posterior fossa is grossly within normal limits. There is no extra-axial collection. There is atrophy and white matter ischemic change here. There is no evidence for fracture on the bone windows. Cervical spine; Degenerative changes. No evidence for an acute fracture or dislocation. CT/CT head/brain wo IV con IMPRESSION: Negative acute noncontrast CT of the brain. Atrophy and white matter seen changes are noted. No acute fracture or dislocation of the cervical spine. Degenerative changes are noted.
--- NOTE | ~2023-07-23 | CT_ITS ---
Indication: Fall, alcohol EXAMINATION: CT brain, CT cervical spine. Axial imaging with coronal and sagittal reformatted images. This CT examination was performed using dose optimization techniques as appropriate, variously including the following: *Automated exposure control *Adjustment of mA and/or kV according to patient size (this includes techniques or standardized protocols for targeted exams where dose is matched to indication/reason for exam; i.e. extremities or head) *Use of iterative reconstruction technique. Radiation dose [address] brain; There is no midline shift. There is no mass effect. There is no hemorrhage. The basal cisterns appear patent. The posterior fossa is grossly within normal limits. There is no extra-axial collection. There is atrophy and white matter ischemic change here. There is no evidence for fracture on the bone windows. Cervical spine; Degenerative changes. No evidence for an acute fracture or dislocation. CT/CT cervical spine wo IV con IMPRESSION: Negative acute noncontrast CT of the brain. Atrophy and white matter seen changes are noted. No acute fracture or dislocation of the cervical spine. Degenerative changes are noted.
--- NOTE | 2023-07-23 11:42 | ED_ITS ---
HPI - Fall General Chief Complaint: General Medical Stated Complaint: FOUND ON FLOOR AFTER FALL ON THURSDAY Time Seen by Provider: 07/23/23 11:42 Source: patient, EMS and RN notes reviewed Mode of arrival: EMS Limitations: no limitations History of Present Illness HPI Narrative: 67-year-old male with pmhx of benign essential tremor, depression, DVT, PE, IBS, anemia, colitis, ischemic cardiomyopathy, chronic peripheral neuropathy presents to the ED today via EMS from home s/p mechanical fall 2 days ago. States that he tripped and fell. Has been unable has been unable to get up from concrete floor d/t neuropathy pain. Denies head strike or LOC. Not on AC. He was able to call EMS today. States he does not feel safe at home and believes his tenants are stealing from him. He is secluded in his basement. States he has not eaten in 2 days d/t inability to move. Has not been taking his home medications. States he has been urinating in an empty vodka bottle. His only complaint at present is feeling sore from lying on the concrete. Denies dizziness, headache, fever, chills, neck pain, back pain, chest pain, SOB, nausea/vomiting, abdominal pain, pelvic pain, dysuria/hematuria. Per EMS, patient has been living in a hoarding-like environment. Upon entering the home, pt was in a corner of the basement surrounded by empty liquor bottles. Patient denies EtOH consumption since falling 2 days ago. States that he typically drinks vodka and beer daily. Cannot quantify amount. Denies hx of alcohol withdrawal. Denies hx of withdrawal seizures. Related Data Home Medications Medication Instructions Recorded Confirmed gabapentin 100 mg capsule 100 mg PO TID PRN Pain 03/19/23 07/23/23 phenelzine 15 mg tablet 15 mg PO TID 03/20/23 07/23/23 propranolol 120 mg capsule,24 120 mg PO DAILY 05/27/23 07/23/23 hr,extended release thiamine HCl (vitamin B1) 100 mg 100 mg PO DAILY 05/27/23 07/23/23 tablet Previous Rx's Medication Instructions Recorded ammonium lactate 12 % topical cream 1 appl topical DAILY #280 grams 05/30/23 walker (Ultra-Light Rollator misc) #1 ea 05/30/23 doxycycline hyclate 100 mg tablet 100 mg PO BID 12 days #24 tabs 05/31/23 walker #1 ea 07/24/23 Allergies Allergy/AdvReac Type Severity Reaction Status Date / Time No Known Allergies Allergy Verified 07/23/23 11:51 [No Known Allergies*] Review of Systems 2 Review of Systems: Constitutional: No fever, chills, fatigue, night sweats, weight changes, +body aches, +generalized weakness ENT/Mouth: No ear pain, hearing loss, nasal congestion, sinus pain, rhinorrhea, sore throat Eyes: No eye pain, swelling, redness, vision changes, discharge Cardio: No chest pain, palpitations, BARRIOS, orthopnea, peripheral edema Pulm: No SOB, cough, sputum, wheezing, dyspnea, hemoptysis GI: No nausea, vomiting, hematemesis, abdominal pain, diarrhea, constipation, hematochezia, melena : No irregular bleeding, dysuria, frequency, urgency, hesitancy, hematuria, flank pain MSK: No back pain, neck pain, joint pain, myalgias Skin: No lesions, rashes Neuro: No weakness, numbness, paresthesias, LOC, dizziness, headache All other systems reviewed and are negative. [facility] Past Medical History Attestation statement: The following information was validated with the patient. Source: old records reviewed and nursing notes reviewed Medical History Depression Benign essential tremor Chronic neurologic disease DVT (deep venous thrombosis) Pulmonary embolism Anemia IBS (irritable bowel syndrome) Colitis Ischemic cardiomyopathy Social History Social History Household Members: Friend(s) Housing: House Alcohol intake: current Alcohol type: beer and hard liquor Patient Tobacco Use Status: Former Tobacco user Smoked in Last 30 Days: No Use of substances other than those prescribed or required for medical reasons: No Advance Directives: Yes Advance Directives Information Provided: No Advance Directives on File: No Advance Directives Date on File: 05/28/23 service: No Physical Exam 2 Vital Signs: Vital Signs: Last Vital Signs Temp 98.9 F 07/24/23 06:00 Pulse 68 07/24/23 06:00 Resp 16 07/24/23 06:00 BP 116/55 L 07/24/23 06:00 Pulse Ox 98 11/03/23 06:00 O2 Del Method Room Air 07/24/23 06:00 BMI result Body Mass Index 32.1 Vital signs are stable Const: General: cooperative, no acute distress, alert, awake and poor hygiene Orientation/consciousness: patient oriented x3 Limitations: no limitations HEENT: Head: Yes normal to inspection, Yes No palpable skull fracture present, Yes normocephalic, Yes atraumatic, No Minor's sign, No raccoon eyes and No periorbital ecchymosis Ears: hearing grossly normal bilaterally General nose exam: Normal external nose present Eyes: General: appearance normal, both eyes and all related structures C onjunctivae: conjunctivae normal Sclerae: sclerae normal Pupils: Equal, round and reactive pupils present EOM: EOMs intact bilaterally Direct Ophthalmoscopy: normal light reflex, no papilledema, fundi normal bilaterally and anterior chamber normal Neck: Neck: Yes normal visual inspection, Yes full ROM and Yes no lymphadenopathy Chest: Chest palpation & inspection: normal inspection of the chest, normal palpation of entire chest wall, no crepitus and no tenderness Resp: Effort & Inspection: normal respiratory effort, able to speak in complete sentences and symmetric chest movement Auscultation: clear to auscultation bilaterally, no crackles, no rales, no rhonchi and no wheezes Cardio: Rate: regular rate Rhythm: regular rhythm Peripheral pulses: r adial pulses present and dorsalis pedis present GI: Inspection: Yes normal to inspection and No abdominal wall ecchymosis P alpation (GI): Soft to palpation, nontender, no guarding and No Rebound tenderness present Auscultation: normal bowel sounds Back/Spine/Pelvis: Other: No midline spinous tenderness. No paraspinal muscle tenderness to palpation. No step-off deformity. Back: No Briones-Trimble sign present Pelvis: no pain with anterior- posterior compression, no pain with lateral compression and no buttock ecchymosis Neuro: Other: Unable to assess gait secondary to patient's neuropathy General: patient oriented x3, moves all extremities, no focal motor deficits and Unable to assess gait Cranial nerves: Yes CN's II-XII intact bilaterally and Yes Equal, round and reactive pupils present Gait exam (Neuro): Unable to assess gait Extrem: Other: Refer to photo below. + Bilateral lower extremities with sever radha dry, flaking, and scaly skin extending from the knees down to bilateral feet (L>R). Chronically edematous, nonpitting. No overlying cellulitis, warmth, fluctuance, drainage. Lower extremities are not tender to palpation. Palpable DP pulses bilaterally. Chronic skin changes likely secondary to venous stasis. LLE: General: Yes full ROM Psych: Other: + patient tearful in the room when talki ng about his home environment Appearance: disheveled Mental Status: mental status grossly normal Course Course Course Narrative: 1459-- CBC showing chronically stable anemia, improved when compared to priors. No leukocytosis. CK elevated to 323 > likely rhabdomyolysis secondary to being on the ground for two days > IVF running. Chronically elevated liver enzymes, stable when compared to priors. COVID negative. CT head/brain without acute bleed. CT cervical spine without acute fracture. > Physician observation initiated pending PT/case management 1610-- Patient signed out to MELANIE Quan at shift change pending PT/CM. 07/24/23--0720--physician observation continued. Vital signs stable. Labs reviewed. Physical therapy evaluated the patient yesterday and recommended short-term rehab. Pending case management placement -physical therapy evaluated patient recommended short-term rehab however patient refusing, stating he needs to go home prior to going directly to rehab. Patient has nobody to go to his home & lock his door/gather his important belongings. This was discussed with patient by multiple people including myself and case management. Patient would like to go home, declining short-term rehab or VNA services. Will be turned and home. Patient has capacity to make these decisions. Medications Administered Generic Name Dose Route Start Last Admin Trade Name Anand PRN Reason Stop Dose Admin Gabapentin 100 mg 07/23/23 21:01 07/24/23 10:25 Gabapentin 100 Mg Capsule PO 100 mg TID PRN Administration Pain, Severe (Pain Scale 7-10) Lactic Acid 1 appl 07/24/23 09:00 07/24/23 10:03 Ammonium Lactate 12 % Cream 140 Gm Tube TOPICAL 1 appl DAILY LUTHER Administration Protocol Propranolol HCl 120 mg 07/24/23 09:00 07/24/23 08:51 Propranolol Hcl La 60 Mg Cap.Sa.24h PO 120 mg DAILY LUTHER Administration Protocol Thiamine HCl 100 mg 07/24/23 09:00 07/24/23 08:51 Thiamine Hcl 100 Mg Tablet PO 100 mg DAILY LUTHER Administration Discontinued Medications Generic Name Dose Route Start Last Admin Trade Name Anand PRN Reason Stop Dose Admin Sodium Chloride 1,000 mls @ 999 mls/hr 07/23/23 15:15 07/23/23 17:22 Ns IV 07/23/23 16:15 Infused .Q1H1M LUTHER Infusion Medical Decision Making Medical Decision Making [facility] Narrative: 67-year-old male with pmhx of benign essential tremor, depression, DVT, PE, IBS, anemia, colitis, ischemic cardiomyopathy, chronic peripheral neuropathy presents to the ED today via EMS from home s/p mechanical fall 2 days ago. Vital signs stable. Patient is nontoxic appearing and in NAD. Poor hygeine. Tearful during evaluation. PEERLA. Exam nonfocal. RRR. Lungs CTA b/l. Abd soft, NT/ND. Severely dry, flaking, and scaly skin noted to LE extending from the knees down to feet (L>R). Chronic 1+ pitting edema. No overlying cellulitis, warmth, fluctuance, drainage. LE not TTP. Chronic skin changes likely secondary to venous stasis. DP pulses 2+ b/l. Clinical concern for rhabdo, dehydration, neuropathy venous stasis, etoh intoxication vs withdrawal vs essential tremor. Lower suspicion for ICH vs CVA/TIA. Unlikely DVT, cellulitis, osteomyelitis. Plan at this time is for basic labs, CPK, IVF, imaging, re-eval, and PT/CM consult. Differential Diagnosis Differential Diagnoses: The differential diagnosis associated with the presentation includes As above. Admission/Observation Consideration of admission/observation: Escalation of care including admission/observation considered In this patient with chronic neuropathy, inability to ambulate, and elevated CPK, admission was considered. Lab Data [facility] Lab Attestation statement: I reviewed the patient's lab results. As above. 07/23/23 12:13 07/23/23 12:13 Labs: Lab Results 07/23/23 07/24/23 Range/Units 12:13 01:05 WBC 4.4 L (4.8-10.8) X10*3/uL RBC 3.73 L (4.60-5.80) X10*6/uL Hgb 13.6 L (14.0-18.0) g/dl Hct 38.4 L (42.0-52.0) % MCV 102.9 H (80.0-98.0) fL MCH 36.5 H (27.0-33.0) pg MCHC 35.4 (31.0-36.0) g/dl RDW 15.4 (11.0-16.0) % Plt Count 121 L (160-400) X10*3/uL MPV 8.5 L (9.4-12.4) fL Immature Gran % (Auto) 0.7 H (0.0-0.4) % Neut % (Auto) 64.1 (45-73) % Lymph % (Auto) 17.4 L (20-40) % Milam % (Auto) 16.5 H (2-11) % Eos % (Auto) 0.2 (0-4) % Baso % (Auto) 1.1 (0-2) % Lymph # (Auto) 0.8 L (1.2-4.9) X10*3/uL Milam # (Auto) 0.7 (0.1-1.2) X10*3/uL Eos # (Auto) 0.0 (0.0-0.4) X10*3/uL Baso # (Auto) 0.1 (0.0-0.2) X10*3/uL Abs Immat Gran (auto) 0.03 (0.00-0.03) X10*3/uL Absolute Neuts (auto) 2.8 (2.0-8.3) x10*3/uL Absolute Nucleated RBC 0.000 (0.0-0.012) X10*3/uL Nucleated RBC % (auto) 0.0 (0.0-0.2) /100WBC ESR 19 H (0-15) MM/HR Sodium 136 (135-145) mmol/L Potassium 4.5 D (3.3-5.1) mmol/L Chloride 97 (96-108) mmol/L Carbon Dioxide 26 (22-29) mmol/L Anion Gap 18 (12-20) BUN 8 L (9-16) mg/dL Creatinine 0.75 (0.5-1.4) mg/dL Estim Creat Clear Calc 112.5 Estimated GFR > 60 Random Glucose 90 (60-115) mg/dL Calcium 9.4 (8.4-10.2) mg/dL Magnesium 2.0 (1.6-2.6) mg/dL Total Bilirubin 1.2 H (0.0-1.0) mg/dL AST 122 H (5-37) U/L ALT 90 H (0-40) U/L Alkaline Phosphatase 97 (39-117) U/L Ammonia 30 (13-55) umol/L Total Creatine Kinase 323 H (38-174) U/L C-Reactive Protein 2.75 H (< or = 0.50) mg/dL Total Protein 7.2 (6.5-8.0) g/dL Albumin 3.7 (3.5-5.0) g/dL Lipase 12 (8-78) U/L Urine Color Dark Yellow Urine Appearance Clear Urine pH 6.0 (5.0-9.0) Ur Specific Johnson >= 1.030 H (1.005-1.025) Urine Protein Trace (Neg-Trace) mg/dL Urine Glucose (UA) Negative (Negative) mg/dL Urine Ketones 80 (Negative) mg/dL Urine Blood Negative (Negative) Urine Nitrite Positive H (Negative) Ur Leukocyte Esterase Small (1+) H (Negative) Urine RBC 0-2 (0-2) /HPF Urine WBC 0-5 (0-5) /HPF Ur Squamous Epith Cells 0-2 (0-2) /HPF Urine Bacteria None Seen (None Seen) Hyaline Casts 3-5 (0-2) /LPF Granular Casts Present Ethyl Alcohol < 10 mg/dL COVID-19 (REJI) Negative (Negative) COVID-19 Clin Com See Note Independent Interpretation I performed an independent interpretation of an: EKG and CT Scan Interpretation: EKG showing normal sinus rhythm with a rate of 83 beats per minute. QTC 420, QRS 104. No acute ischemic changes or ST elevations. CT head/brain without acute bleed, agree with radiologist's interpretation. CT cervical spine without acute fracture, agree with radiologist's interpretation. Radiology Impression Discussion of test interpretation with radiology: I have reviewed the radiologist's reading. Radiologist Impression: CT head/brain/c spine wo IV con IMPRESSION: Negative acute noncontrast CT of the brain. Atrophy and white matter seen changes are noted. No acute fracture or dislocation of the cervical spine. Degenerative changes are noted. Independent Historian Clinical information obtained from an independent historian. History obtained from or confirmed by: EMS External Record Review External record reviewed: Inpatient record, Office record and Outpatient record Prescription Management I considered prescription management with: Pain Medication Chronic Conditions Patient?s care impacted by: Other (Chronic wound of left lower extremity) Social Determinants Patient?s care significantly limited by Social Determinants of Health including: Inadequate housing, Problems related to primary support group and Other Social Determinant of Health Critical Care Time Critical Care Time Critical Care Time: No Discharge Plan Discharge Clinical Impression: Rhabdomyolysis, Neuropathy, Accident due to mechanical fall without injury Patient Disposition: Home, Self-Care Instructions: Peripheral Neuropathy (ED), Fall Prevention (ED) Additional Instructions: Continue your home medications. You are always welcome to return to the emergency department You declined going to rehab today even though this was the recommendation. Prescriptions: New (DME) walker Misc See Rx Instructions .Route Qty: 1 0RF Rx Instructions: As directed No Action thiamine HCl (vitamin B1) 100 mg tablet 100 mg PO DAILY propranolol 120 mg capsule,extended release 24 hr 120 mg PO DAILY ammonium lactate 12 % cream 1 appl topical DAILY Qty: 280 0RF (DME) Ultra-Light Rollator Misc See Rx Instructions .Route Qty: 1 0RF Rx Instructions: As directed doxycycline hyclate 100 mg tablet 100 mg PO BID 12 Days Qty: 24 0RF gabapentin 100 mg capsule 100 mg PO TID PRN (Reason: Pain) phenelzine 15 mg tablet 15 mg PO TID Referrals: Katy Peters MD [Primary Care Provider] - 2 days
[2023-07-23 11:45] VITALS: BP 150/82; BP 157/79; PULSE 86; PULSE 88; RESP 20; TEMP 37.3; O2SAT 100; BMI 32.1
--- OUTSIDE RECORDS SUMMARY | 2023-07-23 12:15 | XMS_ITS | Continuity of Care Document ---
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 Name Role Phone Katy Peters MD Primary Care Physician [phone] Encounter [facility] Date(s): 05/28/23 - 06/27/23 [facility] [address], [place] [address] Allergies, Adverse Reactions, Alerts No Known Allergies Immunizations Given and Recorded Vaccine Date Status Refusal Reason pneumococcal 23-valent vaccine 11/19/13 Given influenza virus vaccine, inactivated 11/19/13 Give n Medications folic acid 1 mg oral tablet 1 tablet = 1 mg, By Mouth, Daily, # 30 tablet, 0 Refills, Maintenance, 11/25/13 11:17:07, Tablet, 1tablet By Mouth Daily,x30 days Start Date: 11/25/13 Stop Date: 12/25/13 Status: Ordered maprotiline 75 mg oral tablet 1 tablet = 75 mg, By Mouth, 2 times a day, 0 Refills, Maintenance, 11/18/13 6:43:45 Start Date: 11/18/13 Status: Ordered multivitamin Vitamin B Complex oral capsule 1 capsule, By Mouth, Daily, # 30 capsule, 0 Refills, Maintenance, 11/25/13 11:18:02, Tablet, 1 capsule By Mouth Daily,x30 days Start Date: 11/25/13 Stop Date: 12/25/13 Status: Ordered Patient's Own Meds Maintenance, med for hand tremors, unsure of name/dose, 02/19/16 13:01:20 Start Date: 02/19/16 Status: Ordered phenelzine 15 mg oral tablet See Instructions, 2 tabs in am and 1 tab hs, 0 Refills, Maintenance, 11/18/13 6:43:18 Start Date: 11/18/13 Status: Ordered Patient Care team information Care Team Personnel Name: Katy Peters MD Position: [facility] Outreach Member Role: PCP Address: Address: [address] [place] [address] [address] [place] [address]- Name: Maegan Bradshaw RN Position: S RN Member Role: Primary Care Nurse Name: Arianna Teran RN Position: [facility] SN RN Member Role: Primary Care Nurse Name: Debora Pugh RN Position: [facility] SN RN Member Role: Primary Care Nurse Care Team Related Persons Name: MARIXA SANCHEZ Address: [place] [address]
[2023-07-23 12:19] LABS: MANUAL DIFF FLAG NO
[2023-07-23 12:22] LABS: Basophils Absolute Auto 0.1 X10*3/uL (0.0-0.2); Basophils Percent Auto 1.1 % (0-2); Eosinophils Percent Auto 0.2 % (0-4); Hematocrit 38.4 % (42.0-52.0); Hemoglobin 13.6 g/dl (14.0-18.0); Imm Gran Abs Auto 0.03 X10*3/uL (0.00-0.03); Imm Gran Pct Auto 0.7 % (0.0-0.4); Lymphocytes Absolute Auto 0.8 X10*3/uL (1.2-4.9); Lymphocytes Percent Auto 17.4 % (20-40); Mean Corpuscular HGB Conc 35.4 g/dl (31.0-36.0); Mean Corpuscular Hemoglobin 36.5 pg (27.0-33.0); Mean Corpuscular Volume 102.9 fL (80.0-98.0); Mean Platelet Volume 8.5 fL (9.4-12.4); Monocytes Absolute Auto 0.7 X10*3/uL (0.1-1.2); Monocytes Percent Auto 16.5 % (2-11); Neutrophils Absolute Auto 2.8 x10*3/uL (2.0-8.3); Neutrophils Percent Auto 64.1 % (45-73); Platelet Count 121 X10*3/uL (160-400); Red Blood Count 3.73 X10*6/uL (4.60-5.80); Red Cell Distribution Width 15.4 % (11.0-16.0); White Blood Count 4.4 X10*3/uL (4.8-10.8)
[2023-07-23 12:28] LABS: Ammonia 30 umol/L (13-55)
[2023-07-23 12:36] LABS: Ethanol < 10 mg/dL
[2023-07-23 12:38] LABS: Alanine Aminotransferase 90 U/L (0-40); Albumin Level 3.7 g/dL (3.5-5.0); Alkaline Phosphatase 97 U/L (39-117); Anion Gap 18 (12-20); Aspartate Amino Transferase 122 U/L (5-37); Bilirubin Total 1.2 mg/dL (0.0-1.0); Blood Urea Nitrogen 8 mg/dL (9-16); C Reactive Protein 2.75 mg/dL (< or = 0.50); Calcium 9.4 mg/dL (8.4-10.2); Carbon Dioxide 26 mmol/L (22-29); Chloride 97 mmol/L (96-108); Creatinine Clr Calc Pharmacy 112.5; Estimated Glomerular Filt Rate > 60; Glucose Random 90 mg/dL (60-115); Lipase 12 U/L (8-78); Potassium 4.5 mmol/L (3.3-5.1); Sodium 136 mmol/L (135-145); Total Protein 7.2 g/dL (6.5-8.0)
[2023-07-23 12:56] LABS: COVID-19 Test Negative (Negative); IDNOW Serial# 08D9AD1C
[2023-07-23 13:26] LABS: Erythrocyte Sedimentation Rate 19 MM/HR (0-15)
[2023-07-23 14:55] VITALS: BP 123/69; PULSE 86; RESP 17; O2SAT 99
[2023-07-23] MEDS: 0.9 % Sodium Chloride 1,000 ML 999 ML IV (15:46)
--- NOTE | 2023-07-23 16:08 | MHC.CM.PN ---
CM met with pt to discuss HCP and STR as PT is rec that he go to STR. CM gave him HCP form, filled in his choice's name, he does not have the phone number because he does not have his phone here with him. He has agreed to go to STR, list was given to him. Referrals have been submitted, awaiting response.
--- NOTE | 2023-07-23 16:55 | PHA.MEDREC ---
Pharmacy Consult ? Medication Reconciliation Pharmacy has completed the medication reconciliation. Patient confirmed medications. Reports he does not have anyone that can bring in his Phenelzine. Joyce Olson, PamD
--- NOTE | 2023-07-23 19:29 | PC.NURSE ---
care assumed of patient by this RN; pt to go to overflow section of ER; rpt given to WILMER Hooks.
[2023-07-23 19:55] VITALS: BP 106/53; PULSE 85; RESP 15; O2SAT 99
--- NOTE | 2023-07-23 21:32 | PC.NURSE ---
this rn assumed care of pt. pt tranported onto hospital bed. pt reports bilateral foot numbness at this time. pt has bilateral redness to lower extremties with healed over scabs. pt reports in the past he had wounds filled with maggots but they have now healed. pt set up in bed with tv. IV fluids running at this time.
[2023-07-24 02:02] LABS: Appearance Urine Clear; Glucose Urine UA Negative (Negative); Leukocyte Esterase Urine Small (1+) (Negative); Nitrite Urine Positive (Negative); Specific Gravity - Urine >= 1.030 (1.005-1.025); UMIC TRIGGER UACC YES; Urine Blood Negative (Negative); Urine Ketones 80 mg/dL (Negative); Urine Protein Trace mg/dL (Neg-Trace)
[2023-07-24 02:03] LABS: Color Urine Dark Yellow
[2023-07-24 02:13] LABS: Bacteria Urine None Seen (None Seen); Granular Casts Urine Present; RBC Urine 0-2 /HPF (0-2); Squamous Epithelial Cell Urine 0-2 /HPF (0-2); UACC Culture Trigger YES; WBC Urine 0-5 /HPF (0-5)
[2023-07-24] MEDS: Gabapentin 100 MG CAPSULE PO ×2 (02:14→10:25)
--- NOTE | 2023-07-24 02:39 | PC.NURSE ---
pt resting comfortably in hospital bed watching tv, respirations even and unlabored,
[2023-07-24 06:00] VITALS: BP 116/55; PULSE 68; RESP 16; TEMP 37.2; O2SAT 98
[2023-07-24] MEDS: Thiamine HCL 100 MG TABLET PO (08:51)
[2023-07-24] MEDS: Propranolol HCL LA 60 MG CAP.SA.24H 120 MG PO (08:51)
[2023-07-24] MEDS: Ammonium Lactate 12 % Cream 140 GM TUBE 1 APPL TOPICAL (10:03)
--- NOTE | 2023-07-24 10:39 | MHC.CM.PN ---
Addendum entered by Yajaira Brito 07/24/23 11:42: Pt asked to speak with the provider, Allyn MACARIO notified. Original Note: CM met with pt to discuss STR options that have said they may have availability, and to ask for the HCP to send to them. Pt talked about how he has to go home before he can go to rehab, to lock his door, secure his things, wash up, and then he will go. CM explained that he would have to go from hosp to rehab directly. After some attempts at problem solving (CM said we could ask Police to go to his home and lock his door) he declined to go to STR. CM then discussed VNA services, he declined, saying there is no room for anyone to help him in his place. Elder protective services report was filed today.
[2023-07-24 13:39] VITALS: BP 128/62; PULSE 71; RESP 17; TEMP 36.5; O2SAT 96
--- NOTE | 2023-07-24 15:06 | MHC.CM.PN ---
Pt was medically cleared for DC. He declined to go to [facility] and declined VNA services. He went home via [facility], self care. Protective services report was filed today.
== END 2023-07-24 15:36 | disposition home or self-care (01) ==
PROVIDERS: Physician Assistant Medical; Emergency Provider Emergency Medicine; PCP Internal Medicine
DX: M62.82 Rhabdomyolysis (principal); G62.9 Polyneuropathy, unspecified; R26.81 Unsteadiness on feet; M54.2 Cervicalgia; R94.31 Abnormal electrocardiogram [ECG] [EKG]; Z79.899 Other long term (current) drug therapy; Z11.52 Encounter for screening for COVID-19; Z20.822 Contact with and (suspected) exposure to COVID-19; Z87.891 Personal history of nicotine dependence
CPT/HCPCS: 36415; 70450; 72125; 80053; 80307; 81001; 81003; 82140; 82550; 83690; 83735; 85025; 85652; 86140; 87086; 87635; 93005; 96360; 96361; 97161; 99285

== ENCOUNTER 2024-02-12 10:28 | Inpatient (IN) | payer MEDICARE, MEDICAID, SELFPAY ==
[2024-02-12] VITALS (8 sets, daily range): BP systolic 91–142; BP diastolic 51–85; PULSE 73–93; RESP 11–18; TEMP 36.7–37.3; O2SAT 96–100; BMI 29.1
--- NOTE | ~2024-02-12 | US_ITS ---
EXAMINATION: US VENOUS ULTRASOUND WITH DOPPLER LOWER EXTREMITY, BILATERAL CLINICAL INFORMATION: b/l le pain and swelling COMPARISON: None available. TECHNIQUE: Ultrasound of the deep veins is performed from the hip to the calf with compression sonography and color and pulse Doppler assessment. Spectral analysis with color-flow imaging is performed. FINDINGS: RIGHT: There is normal venous compression and respiratory variation and augmented flow. The visualized common femoral vein, superficial femoral vein, profunda femoral vein, popliteal vein, and the trifurcation region shows no evidence of deep venous thrombosis. There is no significant popliteal fossa cyst. Below knee soft tissue edema. LEFT: There is normal venous compression and respiratory variation and augmented flow. The visualized common femoral vein, superficial femoral vein, profunda femoral vein, popliteal vein, and the trifurcation region shows no evidence of deep venous thrombosis. There is no significant popliteal fossa cyst. Below knee soft tissue edema. If the patient's symptoms persist, followup ultrasound in 5 days 7 days might be of value to exclude proximal propagation from a non-visualized calf vein. US/US venous duplex LE BI IMPRESSION: No DVT demonstrated in the bilateral lower extremity.
--- NOTE | ~2024-02-12 | CT_ITS ---
PROCEDURE: CT GUIDED ABSCESS DRAINAGE CLINICAL INFORMATION: Cholecystitis COMPARISON: CT abdomen and pelvis and ultrasound abdomen 02/12/2024 TECHNIQUE/FINDINGS: This CT examination was performed using dose optimization techniques as appropriate, variously including the following: *Automated exposure control *Adjustment of mA and/or kV according to patient size (this includes techniques or standardized protocols for targeted exams where dose is matched to indication/reason for exam; i.e. extremities or head) *Use of iterative reconstruction technique DLP: mGy-cm Informed consent was obtained following a discussion of the risks and benefits of the procedure with the patient. The patient was placed supine the CT gantry. Limited CT images of the upper abdomen obtained demonstrate distended gallbladder and mild perihepatic ascites similar to recent cross-sectional imaging. A site on the right upper quadrant was marked and sterilely prepped and draped. Following administration of 1% lidocaine for local anesthesia, the gallbladder was accessed with a 4 [place] Dev4Xesis catheter utilizing a transperitoneal approach. A 0.035 guidewire was inserted. An 8.5 [place] pigtail drainage catheter was placed in the pigtails formed within the gallbladder. 60 mL of bilious fluid was manually aspirated, a sample was sent for culture and sensitivity and the catheter was maintained to LUPIS bulb drainage. The external portion of the catheter was secured with 3-0 suture and a dressing was applied. CT/CT guided drainage IMPRESSION: Successful placement of an 8.5 [place] cholecystostomy tube.
--- NOTE | ~2024-02-12 | CT_ITS ---
EXAMINATION: CT ABDOMEN AND PELVIS WITH CONTRAST CLINICAL INFORMATION: Abdominal pain. COMPARISON: None available. TECHNIQUE: Multidetector volumetric images were obtained from the superior aspect of the liver through the pubic symphysis following administration 100 mL of Omnipaque 350 intravenous contrast. Sagittal and coronal reformatted images were obtained on the technologist's workstation. Oral contrast: No This CT examination was performed using dose optimization techniques as appropriate, variously including the following: *Automated exposure control *Adjustment of mA and/or kV according to patient size (this includes techniques or standardized protocols for targeted exams where dose is matched to indication/reason for exam; i.e. extremities or head) *Use of iterative reconstruction technique DLP: 719 mGy-cm FINDINGS: LUNG BASES: Dependent changes at the lung bases. Trace pericardial effusion. Small hiatal hernia. Gynecomastia. LIVER, GALLBLADDER, AND BILIARY TREE: The liver is enlarged and decreased in attenuation. Trace perihepatic free fluid. No suspicious hepatic lesion or biliary ductal dilatation is present. The gallbladder is distended with stones and sludge. PANCREAS: No ductal dilatation. SPLEEN: Not enlarged. ADRENAL GLANDS: No adrenal mass. KIDNEYS AND URETERS: The kidneys are symmetric in size and enhancement. No hydronephrosis. No perinephric stranding. BLADDER: Unremarkable. GASTROINTESTINAL TRACT: There is submucosal edema and wall thickening of the cecum and ascending colon. There are presumably reactive changes of the terminal ileum and of the appendix. There is fluid and stranding in the right lower quadrant. No small bowel obstruction. ABDOMINAL WALL: Right inguinal hernia containing fat. Small fat-containing umbilical hernia. LYMPH NODES: No bulky lymphadenopathy. VASCULAR: Normal caliber abdominal aorta. PELVIC VISCERA: Unremarkable. OSSEOUS STRUCTURES: No destructive bone lesions. CT/CT abdomen pelvis w IV con IMPRESSION: Wall thickening, submucosal edema and pericolonic stranding of the cecum and ascending colon with presumably reactive changes of the terminal ileum and appendix. Infectious and inflammatory etiologies should be considered. Small intra-abdominal and intrapelvic ascites. Hepatic steatosis and hepatomegaly. Distended gallbladder. Cholelithiasis. Advise correlation with right upper quadrant ultrasound.
--- NOTE | ~2024-02-12 | XR_ITS ---
EXAMINATION: XR CHEST CLINICAL INFORMATION: Shortness of breath. COMPARISON: None available. TECHNIQUE: Frontal view of the chest was obtained. FINDINGS: Heart size is normal. There is mild calcific atherosclerotic disease of the aorta. There is no consolidation. No pleural effusion. No pneumothorax. No acute osseous abnormality. XR/XR chest 1V IMPRESSION: No acute cardiopulmonary disease.
--- NOTE | ~2024-02-12 | US_ITS ---
EXAMINATION: US ABDOMEN LIMITED CLINICAL INFORMATION: Right upper quadrant pain. COMPARISON: None available. TECHNIQUE: Real-time imaging of the gallbladder and common bile duct. FINDINGS: GALLBLADDER: The gallbladder is of normal. Sludge is present along with shadowing stones. The gallbladder wall is thickened at 5 mm and there is fluid seen within the gallbladder wall. However, Chopra's sign is reportedly negative COMMON BILE DUCT: Normal in caliber measuring 0 point cm in diameter. US/US abdomen limited IMPRESSION: Cholelithiasis with gallbladder wall thickening and fluid in the gallbladder wall. Findings are suspicious for acute cholecystitis. Chopra's sign is negative.
--- NOTE | ~2024-02-12 | US_ITS ---
EXAMINATION: US arterial duplex LE BI CLINICAL INFORMATION: decreased pulses loss of sensation b/l LE TECHNIQUE: Real-time ultrasound and Doppler techniques (integrating B-mode 2-D vascular images, Doppler spectral analysis and color flow Doppler imaging) were utilized to interrogate the lower extremities. COMPARISON: None FINDINGS: RIGHT LEG: Common femoral artery: 78 cm/s, Triphasic Profunda femoris artery: 39 cm/s, biphasic Superficial femoral artery (proximal): 86 cm/s, Triphasic Superficial femoral artery (mid): 106 cm/s, Triphasic Superficial femoral artery (distal): 76 cm/s, Triphasic Popliteal artery: 52 cm/s, monophasic Posterior tibial artery: 110 cm/s, monophasic LEFT LEG: Common femoral artery: 111 cm/s, Triphasic Profunda femoris artery: 61 cm/s, Triphasic Superficial femoral artery (proximal): 90 cm/s, Triphasic Superficial femoral artery (mid): 101 cm/s, Triphasic Superficial femoral artery (distal): 61 cm/s, Triphasic Popliteal artery: 62 cm/s, Triphasic Posterior tibial artery: 102 cm/s, monophasic US/US arterial duplex LE BI IMPRESSION: There is no evidence of any hemodynamically significant lower extremity arterial disease by waveform or duplex Doppler criteria at rest.
--- NOTE | 2024-02-12 10:40 | ECG_ITS ---
Test Reason : SWELLING,WEAKNESS Blood Pressure : / mmHG Vent. Rate : 089 BPM Atrial Rate : 089 BPM P-R Int : 172 ms QRS Dur : 096 ms QT Int : 414 ms P-R-T Axes : 036 -18 029 degrees QTc Int : 503 ms Normal sinus rhythm Low voltage QRS Septal infarct , age undetermined Cannot rule out Inferior infarct (cited on or before 12-FEB-2024) Abnormal ECG When compared with ECG of 23-JUL-2023 12:00, Septal infarct is now Present Referred By: Generic ED Physician Electronically Signed By:Ever Carty
[2024-02-12 11:29] LABS: MANUAL DIFF FLAG NO
[2024-02-12 11:30] LABS: Basophils Absolute Auto 0.1 X10*3/uL (0.0-0.2); Basophils Percent Auto 0.8 % (0-2); Eosinophils Absolute Auto 0.1 X10*3/uL (0.0-0.4); Eosinophils Percent Auto 0.6 % (0-4); Hematocrit 43.8 % (42.0-52.0); Hemoglobin 15.5 g/dl (14.0-18.0); Imm Gran Abs Auto 0.04 X10*3/uL (0.00-0.03); Imm Gran Pct Auto 0.4 % (0.0-0.4); Lymphocytes Absolute Auto 1.6 X10*3/uL (1.2-4.9); Lymphocytes Percent Auto 15.5 % (20-40); Mean Corpuscular HGB Conc 35.4 g/dl (31.0-36.0); Mean Corpuscular Hemoglobin 40.2 pg (27.0-33.0); Monocytes Absolute Auto 0.9 X10*3/uL (0.1-1.2); Monocytes Percent Auto 8.3 % (2-11); Neutrophils Absolute Auto 7.6 x10*3/uL (2.0-8.3); Neutrophils Percent Auto 74.4 % (45-73); Platelet Count 176 X10*3/uL (160-400); Red Blood Count 3.86 X10*6/uL (4.60-5.80); Red Cell Distribution Width 13.7 % (11.0-16.0); White Blood Count 10.2 X10*3/uL (4.8-10.8)
[2024-02-12 11:36] LABS: INTERNATIONAL NORM RATIO 1.2 (0.9-1.1); Prothrombin Time 14.9 SEC (11.1-13.3)
[2024-02-12 11:40] LABS: Mean Corpuscular Volume 113.5 fL (80.0-98.0)
[2024-02-12 11:45] LABS: Lactic Acid 2.3 mmol/L (0.5-2.0)
[2024-02-12 11:46] LABS: Alanine Aminotransferase 39 U/L (0-40); Albumin Level 3.4 g/dL (3.5-5.0); Alkaline Phosphatase 247 U/L (39-117); Anion Gap 14 (12-20); Aspartate Amino Transferase 149 U/L (5-37); Bilirubin Total 2.9 mg/dL (0.0-1.0); Blood Urea Nitrogen 4 mg/dL (9-16); Calcium 9.3 mg/dL (8.4-10.2); Carbon Dioxide 32 mmol/L (22-29); Chloride 95 mmol/L (96-108); Creatinine Clr Calc Pharmacy 131.9; Estimated Glomerular Filt Rate > 60; Glucose Random 119 mg/dL (60-115); Potassium 3.7 mmol/L (3.3-5.1); Sodium 137 mmol/L (135-145); Total Protein 8.1 g/dL (6.5-8.0)
[2024-02-12 11:50] LABS: B Type Natriuretic Peptide 183 pg/mL (<100); Troponin-I High Sensitivity 8.6 ng/L (<3.5-35.0)
--- NOTE | 2024-02-12 11:52 | ED.ABDPAIN ---
HPI - Abdominal Pain General Chief Complaint: Abdominal Pain Stated Complaint: FAILURE TO THRIVE LEG EDEMA Time Seen by Provider: 02/12/24 11:43 Source: patient Mode of arrival: ambulatory Limitations: other (poor historian ) History of Present Illness ED Provider: Aracely NAVARRO HPI narrative: This is a 68-year-old male history of DVT, PE, IBS, anemia, colitis, ischemic cardiomyopathy, chronic peripheral neuropathy, tremor, depression presenting to the emergency department via ambulance from home with complaints of diffuse abdominal pain, bilateral lower extremity pain and swelling with associated decreased sensation, he reports a decrease in sensation has been present for years worsening. He reports he has not been eating or drinking due to lack of appetite, he reports he has not been able to ambulate secondary to pain and he has been sitting in a recliner for 4 days. He also reports he has not had a bowel movement in 4 days. Patient is currently on gabapentin for neuropathy but feels like it has not helping. And is prescribed doxycycline currently for leg infection which he states he is taking as prescribed but hes not sure the infection is getting better. Denies chest pain, shortness breath, nausea, vomiting, diarrhea, headache, vision changes, dizziness. Related Data Home Medications ?Medication ?Instructions ?Recorded ?Confirmed gabapentin 100 mg capsule 100 mg PO TID PRN Pain 03/19/23 07/23/23 phenelzine 15 mg tablet 15 mg PO TID 03/20/23 07/23/23 propranolol 120 mg capsule,24 120 mg PO DAILY 05/27/23 07/23/23 hr,extended release thiamine HCl (vitamin B1) 100 mg 100 mg PO DAILY 05/27/23 07/23/23 tablet Previous Rx's ?Medication ?Instructions ?Recorded ammonium lactate 12 % topical cream 1 appl topical DAILY #280 grams 05/30/23 walker (Ultra-Light Rollator misc) #1 ea 05/30/23 doxycycline hyclate 100 mg tablet 100 mg PO BID 12 days #24 tabs 05/31/23 walker #1 ea 07/24/23 Allergies Allergy/AdvReac Type Severity Reaction Status Date / Time No Known Allergies Allergy Verified 02/12/24 11:01 [No Known Allergies*] Review of Systems Review of Systems Yes all other systems are reviewed and are negative PMFSH Past Medical History Attestation statement: The following information was validated with the patient. Source: old records reviewed and nursing notes reviewed Medical History Depression Benign essential tremor Chronic neurologic disease DVT (deep venous thrombosis) Pulmonary embolism Anemia IBS (irritable bowel syndrome) Colitis Ischemic cardiomyopathy Social History Social History Household Members: Friend(s) Housing: House Alcohol intake: current Alcohol intake frequency: 3 or more drinks per day Alcohol type: beer and hard liquor Comment: patient refuses alarms Patient Tobacco Use Status: Former Tobacco user Smoked in Last 30 Days: No Use of substances other than those prescribed or required for medical reasons: No Advance Directives: No Advance Directives Information Provided: Yes Advance Directives Date on File: 05/28/23 service: No Physical Exam ED Vital Signs: Vital Signs - 24 hr 02/12/24 10:53 02/12/24 13:56 02/12/24 14:07 Temperature 99.2 F 98.2 F Pulse Rate 93 92 90 Respiratory Rate 11 L 18 14 Blood Pressure 117/85 128/76 129/81 Pulse Oximetry 100 100 100 Oxygen Delivery Method Room Air Room Air Room Air 02/12/24 16:12 02/12/24 18:42 Temperature 98.1 F 98.1 F Pulse Rate 82 79 Respiratory Rate 16 14 Blood Pressure 117/58 L 111/60 Pulse Oximetry 96 99 Oxygen Delivery Method Room Air Room Air BMI result Body Mass Index 29.1 vss Appearance: Alert.? Oriented X3.? No acute distress.? Head: Normocephalic, atraumatic, no step-offs or deformities Eyes: Pupils equal, round and reactive to light.? Neck: Normal inspection.? Neck supple.? CVS: Normal heart rate and rhythm.? Pulses normal.? Respiratory: No respiratory distress.? Breath sounds diminished b/l.? Abdomen: Soft and nontender.?Normal BS throughout Skin: Skin warm and dry.? Normal skin color.? Normal skin turgor.? Extremities:+4+ non pitting edema to b/l LE w/ errythema & warmth L>R b/l and dry cracked skin b/l. Faint pulses DP,AT noted but difficult to access due to swelling. Diminished sensation distally to bilateral lower extremities up until the knee. .? No calf ttp. Global weakness Back: No midline tenderness, no C-spine tenderness, full range of motion, no CVA tenderness bilaterally Neuro: Oriented X 3.? No motor deficit.? No sensory deficit. CN 2-12 intact Course Reevaluation(s) Reevaluation #1: CBC no acute findings. Chemistry with elevated lactic acid, unclear source at this time also bilirubin is elevated at 2.9. Abdominal imaging ordered. Urine pending. Patient's BNP mildly elevated 183 At this time infection suspected. WIll give ceftriaxone. Will slowly give fluids due to new edema and mild elevation in BNP . Time: 11:54 Reevaluation #2: Patient ct resulted will obtain us for further eval. Sign out to Bebeto MACARIO Time: 15:53 Reevaluation #3: 4:00 p.m. Received sign-out with the patient in stable condition pending disposition and ultrasound. Resting comfortably at this time. 5:00 p.m. patient complaining of pain to his legs bilaterally. This is baseline. Toradol ordered. 7:30 p.m. ultrasound results returned, gallbladder wall thickening with fluid within the wall, concerning for acute cholecystitis. I have reviewed with Dr. Good who does not feel like this is a surgical candidate at this time and would likely need IR gallbladder drainage and GI consult. Of note, patient apparently was given a tray of food which he ate. He is not having any abdominal pain nausea or vomiting at this time. 7:[address] Garibay for transfer of care. Medical Decision Making Medical Decision Making [facility] Narrative: 1241 68-year-old male history of physical deconditioning and poor self-care presenting with multiple complaints abdominal pain lower extremity pain and swelling, inability to ambulate, no bowel movement for the past 4 days. Physical exam decreased sensation to distal extremity, patient reports this is normal for him. 4+ nonpitting edema. Breath sounds diminished bilaterally. Patient appears unkempt. Will rule out DVT, arterial occlusion of lower extremities although this is more likely cellulitis. Unlikely acute osteomyelitis, threat to limb, fracture, dislocation. Will rule out metabolic derangements. Abdomen on exam nontender to palpation however will rule out intra-abdominal etiologies. Will rule out alcohol intoxication as patient has history of this in the past as well as polysubstance abuse. Also rule out UTI and cystitis. I do not suspect intracranial hemorrhage, stroke, posterior stroke, ACS, PE or dissection. Plan labs, imaging, urine. Differential Diagnosis Differential Diagnoses: The differential diagnosis associated with the presentation includes Will rule out DVT, arterial occlusion of lower extremities although this is more likely cellulitis. Unlikely acute osteomyelitis, threat to limb, fracture, dislocation. Will rule out metabolic derangements. Abdomen on exam nontender to palpation however will rule out intra-abdominal etiologies. Will rule out alcohol intoxication as patient has history of this in the past as well as polysubstance abuse. Also rule out UTI and cystitis. I do not suspect intracranial hemorrhage, stroke, posterior stroke, ACS, PE or dissection. Admission/Observation Consideration of admission/observation: Escalation of care including admission/observation considered Possible Lab Data MDM Lab Attestation statement: I reviewed the patient's lab results. 02/12/24 11:23 02/12/24 11:23 Labs: Lab Results 02/12/24 02/12/24 02/12/24 Range/Units 11:23 11:57 13:55 WBC 10.2 (4.8-10.8) X10*3/uL RBC 3.86 L (4.60-5.80) X10*6/uL Hgb 15.5 (14.0-18.0) g/dl Hct 43.8 (42.0-52.0) % MCV 113.5 H (80.0-98.0) fL MCH 40.2 H (27.0-33.0) pg MCHC 35.4 (31.0-36.0) g/dl RDW 13.7 (11.0-16.0) % Plt Count 176 D (160-400) X10*3/uL MPV 9.0 L (9.4-12.4) fL Immature Gran % (Auto) 0.4 (0.0-0.4) % Neut % (Auto) 74.4 H (45-73) % Lymph % (Auto) 15.5 L (20-40) % [place] % (Auto) 8.3 (2-11) % Eos % (Auto) 0.6 (0-4) % Baso % (Auto) 0.8 (0-2) % Lymph # (Auto) 1.6 (1.2-4.9) X10*3/uL [place] # (Auto) 0.9 (0.1-1.2) X10*3/uL Eos # (Auto) 0.1 (0.0-0.4) X10*3/uL Baso # (Auto) 0.1 (0.0-0.2) X10*3/uL Abs Immat Gran (auto) 0.04 H (0.00-0.03) X10*3/uL Absolute Neuts (auto) 7.6 (2.0-8.3) x10*3/uL Absolute Nucleated RBC 0.000 (0.0-0.012) X10*3/uL Nucleated RBC % (auto) 0.0 (0.0-0.2) /100WBC PT 14.9 H (11.1-13.3) SEC INR 1.2 H (0.9-1.1) Sodium 137 (135-145) mmol/L Potassium 3.7 (3.3-5.1) mmol/L Chloride 95 L (96-108) mmol/L Carbon Dioxide 32 H (22-29) mmol/L Anion Gap 14 (12-20) BUN 4 L (9-16) mg/dL Creatinine 0.62 (0.5-1.4) mg/dL Estim Creat Clear Calc 131.9 Estimated GFR > 60 Random Glucose 119 H (60-115) mg/dL Lactic Acid 2.3 H* (0.5-2.0) mmol/L Lactic Acid F/U @ 2Hr 2.4 H* (0.5-2.0) mmol/L Lactic Acid F/U @ 4Hr (0.5-2.0) mmol/L Calcium 9.3 (8.4-10.2) mg/dL Total Bilirubin 2.9 H (0.0-1.0) mg/dL AST 149 H (5-37) U/L ALT 39 (0-40) U/L Alkaline Phosphatase 247 H (39-117) U/L Total Creatine Kinase 18 L (38-174) U/L Troponin I High Sens 8.6 (<3.5-35.0) ng/L B-Natriuretic Peptide 183 H (<100) pg/mL Total Protein 8.1 H (6.5-8.0) g/dL Albumin 3.4 L (3.5-5.0) g/dL Urine Color Yellow Urine Appearance Clear Urine pH >= 9.0 (5.0-9.0) Ur Specific [place] <= 1.005 (1.005-1.025) Urine Protein Negative (Neg-Trace) mg/dL Urine Glucose (UA) Negative (Negative) mg/dL Urine Ketones Negative (Negative) mg/dL Urine Blood Negative (Negative) Urine Nitrite Negative (Negative) Ur Leukocyte Esterase Negative (Negative) Ethyl Alcohol < 10 mg/dL 02/12/24 Range/Units 16:15 WBC (4.8-10.8) X10*3/uL RBC (4.60-5.80) X10*6/uL Hgb (14.0-18.0) g/dl Hct (42.0-52.0) % MCV (80.0-98.0) fL MCH (27.0-33.0) pg MCHC (31.0-36.0) g/dl RDW (11.0-16.0) % Plt Count (160-400) X10*3/uL MPV (9.4-12.4) fL Immature Gran % (Auto) (0.0-0.4) % Neut % (Auto) (45-73) % Lymph % (Auto) (20-40) % [place] % (Auto) (2-11) % Eos % (Auto) (0-4) % Baso % (Auto) (0-2) % Lymph # (Auto) (1.2-4.9) X10*3/uL [place] # (Auto) (0.1-1.2) X10*3/uL Eos # (Auto) (0.0-0.4) X10*3/uL Baso # (Auto) (0.0-0.2) X10*3/uL Abs Immat Gran (auto) (0.00-0.03) X10*3/uL Absolute Neuts (auto) (2.0-8.3) x10*3/uL Absolute Nucleated RBC (0.0-0.012) X10*3/uL Nucleated RBC % (auto) (0.0-0.2) /100WBC PT (11.1-13.3) SEC INR (0.9-1.1) Sodium (135-145) mmol/L Potassium (3.3-5.1) mmol/L Chloride (96-108) mmol/L Carbon Dioxide (22-29) mmol/L Anion Gap (12-20) BUN (9-16) mg/dL Creatinine (0.5-1.4) mg/dL Estim Creat Clear Calc Estimated GFR Random Glucose (60-115) mg/dL Lactic Acid (0.5-2.0) mmol/L Lactic Acid F/U @ 2Hr (0.5-2.0) mmol/L Lactic Acid F/U @ 4Hr 1.6 (0.5-2.0) mmol/L Calcium (8.4-10.2) mg/dL Total Bilirubin (0.0-1.0) mg/dL AST (5-37) U/L ALT (0-40) U/L Alkaline Phosphatase (39-117) U/L Total Creatine Kinase (38-174) U/L Troponin I High Sens (<3.5-35.0) ng/L B-Natriuretic Peptide (<100) pg/mL Total Protein (6.5-8.0) g/dL Albumin (3.5-5.0) g/dL Urine Color Urine Appearance Urine pH (5.0-9.0) Ur Specific [place] (1.005-1.025) Urine Protein (Neg-Trace) mg/dL Urine Glucose (UA) (Negative) mg/dL Urine Ketones (Negative) mg/dL Urine Blood (Negative) Urine Nitrite (Negative) Ur Leukocyte Esterase (Negative) Ethyl Alcohol mg/dL Independent Interpretation I performed an independent interpretation of an: EKG (Vent. Rate : 089 BPM Atrial Rate : 089 BPM P-R Int : 172 ms QRS Dur : 096 ms QT Int : 414 ms P-R-T Axes : 036 -18 029 degrees QTc Int : 503 ms Normal sinus rhythm Low voltage QRS Septal infarct , age undetermined Cannot rule out Inferior infarct (cited on or before 24-), Plain X-Ray ( XR/XR chest 1V IMPRESSION: No acute cardiopulmonary disease. ), Ultrasound (US/US arterial duplex LE BI IMPRESSION: There is no evidence of any hemodynamically significant lower extremity arterial disease by waveform or duplex Doppler criteria at rest. ) and CT Scan Interpretation: US/US venous duplex LE BI IMPRESSION: No DVT demonstrated in the bilateral lower extremity. Radiology Impression Discussion of test interpretation with radiology: I have reviewed the radiologist's reading. External Record Review External record reviewed: Inpatient record, Office record, Outpatient record, Prior outpatient labs, Prior outpatient radiology, Primary care record and Outside ED record Chronic Conditions Patient?s care impacted by: Other ( DVT, PE, IBS, anemia, colitis, ischemic cardiomyopathy, chronic peripheral neuropathy, tremor, depression ) Core Measures AMI core measures followed: Yes Measure exclusions: not indicated Medications Administered Generic Name Dose Route Start Last Admin Trade Name Freq PRN Reason Stop Dose Admin Ceftriaxone Sodium 1 gm/ 50 mls @ 100 mls/hr 02/12/24 12:00 02/12/24 13:27 Sodium Chloride IV Infused Q12H LUTHER Infusion Discontinued Medications Generic Name Dose Route Start Last Admin Trade Name Freq PRN Reason Stop Dose Admin Sodium Chloride 2,835 mls @ 2,835 mls/hr 02/12/24 11:56 02/12/24 13:27 Ns 30 ml/kg infuse over 1 hr (2835 ml) 02/12/24 12:55 Infused IV Infusion .Q1H STA Iohexol 100 ml 02/12/24 14:06 02/12/24 14:06 Iohexol 350 Mg/Ml 100 Ml Infus..Btl IV 02/12/24 14:07 100 ml ONCE ONE Administration Ketorolac Tromethamine 15 mg 02/12/24 16:57 02/12/24 17:53 Ketorolac Tromethamine 15 Mg/Ml Vial IVPUSH 02/12/24 16:58 15 mg ONCE ONE Administration Critical Care Time Critical Care Time Critical Care Time: Yes Total Critical Care Time: 35 Attestation: I attest to this time spent taking care of the patient, obtaining history, physical, reviewing labs, imaging, speaking to my attending, specialist or hospitalist. Discharge Plan Discharge Clinical Impression: Abdominal pain, Hyperbilirubinemia, Bilateral leg pain, Bilateral cellulitis of lower leg Patient Disposition: Admitted As Inpatient
[2024-02-12 12:07] LABS: Appearance Urine Clear; Color Urine Yellow; Glucose Urine UA Negative (Negative); Leukocyte Esterase Urine Negative (Negative); Nitrite Urine Negative (Negative); PH >= 9.0 (5.0-9.0); Specific Gravity - Urine <= 1.005 (1.005-1.025); Urine Blood Negative (Negative); Urine Ketones Negative (Negative); Urine Protein Negative (Neg-Trace)
[2024-02-12 12:34] LABS: Ethanol < 10 mg/dL
[2024-02-12] MEDS: cefTRIAXone sodium 1 GM in 0.9 % Sodium Chloride 50 ML IV (12:40)
[2024-02-12 13:28] LABS: Reflex Lactate? Lactic Acid Added
[2024-02-12] MEDS: iohexoL 350 MG/ML 100 ML INFUS..BTL IV (14:06)
[2024-02-12 14:54] LABS: ~Lactic Acid-LAB USE ONLY 2.4 mmol/L (0.5-2.0)
[2024-02-12 15:57] LABS: Reflex Lactate? 2 Y
[2024-02-12 16:28] LABS: ~Lactic Acid-LAB USE ONLY 1.6 mmol/L (0.5-2.0)
[2024-02-12] MEDS: Ketorolac Tromethamine 15 MG/ML VIAL IVPUSH (17:53)
--- NOTE | 2024-02-12 19:21 | PC.NURSE ---
this rn assumed care of pt, pt a&ox4, respirations even and unlabored, pt reporting bilateral lower extremity pain. pt bilateral lower extremities noted to be red, with dry skin and tender to touch, non pitting edema noted. pt normal sinus on tele 80-85bpm.
--- NOTE | 2024-02-12 19:48 | P.HPHOSP_ITS ---
History of Present Illness Date of Service: 02/12/24 Attending physician on admission: Huong Garibay Chief Complaint: Abdominal pain, generalized weakness Pt is a 68-year-old male with a PMH significant for?ischemic cardiomyopathy, hx of DVT with PE 10 years ago not currently on anticoagulation, ulcerative colitis, peripheral neuropathy, HTN, and chronic venous stasis dermatitis who presents to the ED for evaluation of generalized weakness, nausea, and stomach upset x4 days. Pt comes from a rented room in the basement of a house and [place] he shares with another tenant. States he has been sleeping in a chair for the past 4 day and been unable to stand due to weakness in his legs. Also reports not eating or drinking much due to an upset stomach. Complains mostly of nausea without vomiting, and only minor stomach pain/discomfort. Also complains of worsening pain in his legs bilaterally that has been ongoing since his DVT and PE 10 years ago. Denies fever, chills. No changes to bowel or bladder habits. Denies chest pain/pressure, palpitations. No shortness of breath or difficulty breathing. Of note, pt received a tray of food while in the ED and was able to tolerate eating a sandwich. In the ED pt with elevated heart rate to 93, vitals otherwise largely WNL. Labs were significant for MCV 113.5, lactic acid 2.3 with repeat 2.4 and 1.6, total bilirubin 2.9, AST 149, alk-phos 247, BNP mildly elevated at 183. No leukocytosis. Stable H&H. No significant electrolyte abnormalities. Renal function baseline. CXR showed no acute cardiopulmonary disease. CT?of abdomen and pelvis found distended gallbladder with cholelithiasis. Also noted wall thickening, submucosal edema, and pericolonic stranding of cecum and ascending colon, likely reactive to terminal ileum and appendix. Additionally showed small intra-abdominal and intrapelvic ascites and hepatic steatosis and hepatomegaly. Abdominal ultrasound showed cholelithiasis with gallbladder wall thickening and fluid and gallbladder wall, suspicious for acute cholecystitis. Arterial duplex of lower extremities bilaterally showed no evidence of hemodynamically significant arterial disease. Venous duplex of lower extremities bilaterally showed no DVT demonstrated. EKG demonstrated normal sinus rhythm c with QT of 503, but no evidence of significant ST elevations or depressions. Pt was treated with IVF, ceftriaxone, and ketorolac. Pt will be admitted to the hospital for treatment and further evaluation of acute cholecystitis. Review of Systems 2 Review of Systems: Stomach discomfort Nausea, no vomiting Anorexia Generalized weakness, difficulty standing and ambulating Worsening chronic lower leg pain Denies fever, chills No chest pain/pressure, palpitations [facility] Medical History Depression Benign essential tremor Chronic neurologic disease DVT (deep venous thrombosis) Pulmonary embolism Anemia IBS (irritable bowel syndrome) Colitis Ischemic cardiomyopathy Social History Household Members: Friend(s) Housing: House Alcohol intake: current Alcohol intake frequency: 3 or more drinks per day Alcohol type: beer and hard liquor Comment: patient refuses alarms Patient Tobacco Use Status: Former Tobacco user Smoked in Last 30 Days: No Use of substances other than those prescribed or required for medical reasons: No Advance Directives: No Advance Directives Information Provided: Yes Advance Directives Date on File: 05/28/23 service: No Meds Allergies Allergy/AdvReac Type Severity Reaction Status Date / Time No Known Allergies Allergy Verified 02/12/24 11:01 [No Known Allergies*] Active Medications: Current Medications Acetaminophen (Acetaminophen 325 Mg Tablet) 650 mg PO Q6H PRN PRN Reason: Pain, Mild (Pain Scale 1-3) Ceftriaxone Sodium 1 gm/ (Sodium Chloride) 50 mls @ 100 mls/hr IV Q12H [facility] Last Infusion: 02/12/24 13:27 Dose: Infused Piperacillin Sod/Tazobactam (Sod 4.5 gm/ Sodium Chloride) 100 mls @ 200 mls/hr IV Q6H [facility] Melatonin (Melatonin 3 Mg Tablet) 6 mg PO BEDTIME PRN PRN Reason: Insomnia Morphine Sulfate (Morphine Sulfate 4 Mg/Ml Cartridge) 4 mg IVPUSH Q4H PRN; Protocol PRN Reason: Pain, Severe (Pain Scale 7-10) Ondansetron HCl (Ondansetron Hcl 4 Mg/2 Ml Vial) 4 mg IVPUSH Q8H PRN PRN Reason: Nausea and Vomiting Sodium Chloride (0.9 % Sodium Chloride Flush 3 Ml Syringe) 3 ml IVFLUSH QSHIFT [facility] Home Medications ?Medication ?Instructions ?Recorded ?Confirmed ?Last Taken ?Type gabapentin 100 mg capsule 100 mg PO TID PRN Pain 03/19/23 07/23/23 Unknown History phenelzine 15 mg tablet 15 mg PO TID 03/20/23 07/23/23 1 Week Ago History ~05/20/23 propranolol 120 mg capsule,24 120 mg PO DAILY 05/27/23 07/23/23 Unknown History hr,extended release thiamine HCl (vitamin B1) 100 mg 100 mg PO DAILY 05/27/23 07/23/23 Unknown History tablet Physical Exam 2 Vital Signs and Narrative: Vital Signs: Last Vital Signs Temp 98.1 F 02/12/24 18:42 Pulse 79 02/12/24 18:42 Resp 14 02/12/24 18:42 BP 111/60 02/12/24 18:42 Pulse Ox 99 02/12/24 18:42 O2 Del Method Room Air 02/12/24 18:42 BMI result Body Mass Index 29.1 Constitutional: Alert, in no acute distress. Unkempt, disshelved. Mental Status: Oriented to person, place and time. Eyes: Pupils are equal, round, and reactive to light. Ear, Nose, and Throat: Oropharynx clear, mucous membranes moist. Ears and nose without deformities. Trachea midline. Respiratory: Clear to auscultation bilaterally. No wheezing, rales, or rhonchi. Cardiovascular: S1, S2 regular. No murmurs, rubs, or gallops. Gastrointestinal: Abdomen soft, non-distended, with mild RUQ tenderness. Normal bowel sounds. Neurologic: Cranial nerves II-XII are grossly intact bilaterally. No focal neurological deficits. Moves all extremities spontaneously. Skin: Warm, dry. Extremities: Nonpitting edema bilaterally to lower extremities with chronic venous stasis dermatitis changes. As pictured below Psychiatric: Normal mood and affect. Results Labs 02/12/24 11:23 02/12/24 11:23 Labs: Laboratory Results - last 24 hr 02/12/24 02/12/24 02/12/24 11:23 11:57 13:55 MCV 113.5 H MCH 40.2 H MCHC 35.4 RDW 13.7 Plt Count 176 D MPV 9.0 L Immature Gran % (Auto) 0.4 Neut % (Auto) 74.4 H Lymph % (Auto) 15.5 L Wink[place] % (Auto) 8.3 Eos % (Auto) 0.6 Baso % (Auto) 0.8 Lymph # (Auto) 1.6 [place]ink[place] # (Auto) 0.9 Eos # (Auto) 0.1 Baso # (Auto) 0.1 Abs Immat Gran (auto) 0.04 H Absolute Neuts (auto) 7.6 Absolute Nucleated RBC 0.000 Nucleated RBC % (auto) 0.0 PT 14.9 H INR 1.2 H Anion Gap 14 Estim Creat Clear Calc 131.9 Estimated GFR > 60 Random Glucose 119 H Lactic Acid 2.3 H* Lactic Acid F/U @ 2Hr 2.4 H* Lactic Acid F/U @ 4Hr Calcium 9.3 Total Bilirubin 2.9 H AST 149 H ALT 39 Alkaline Phosphatase 247 H Total Creatine Kinase 18 L Troponin I High Sens 8.6 B-Natriuretic Peptide 183 H Total Protein 8.1 H Albumin 3.4 L Urine Color Yellow Urine Appearance Clear Urine pH >= 9.0 Ur Specific [place] <= 1.005 Urine Protein Negative Urine Glucose (UA) Negative Urine Ketones Negative Urine Blood Negative Urine Nitrite Negative Ur Leukocyte Esterase Negative Ethyl Alcohol < 10 02/12/24 16:15 MCV MCH MCHC RDW Plt Count MPV Immature Gran % (Auto) Neut % (Auto) Lymph % (Auto) Wink[place] % (Auto) Eos % (Auto) Baso % (Auto) Lymph # (Auto) [place]ink[place] # (Auto) Eos # (Auto) Baso # (Auto) Abs Immat Gran (auto) Absolute Neuts (auto) Absolute Nucleated RBC Nucleated RBC % (auto) PT INR Anion Gap Estim Creat Clear Calc Estimated GFR Random Glucose Lactic Acid Lactic Acid F/U @ 2Hr Lactic Acid F/U @ 4Hr 1.6 Calcium Total Bilirubin AST ALT Alkaline Phosphatase Total Creatine Kinase Troponin I High Sens B-Natriuretic Peptide Total Protein Albumin Urine Color Urine Appearance Urine pH Ur Specific [place] Urine Protein Urine Glucose (UA) Urine Ketones Urine Blood Urine Nitrite Ur Leukocyte Esterase Ethyl Alcohol Imaging Radiologist's Impressions: Impressions Duplex Scan Lower Extremity Artery 02/12/24 12:42 IMPRESSION: There is no evidence of any hemodynamically significant lower extremity arterial disease by waveform or duplex Doppler criteria at rest. Venous Duplex 02/12/24 12:42 IMPRESSION: No DVT demonstrated in the bilateral lower extremity. Chest X-Ray 02/12/24 13:38 IMPRESSION: No acute cardiopulmonary disease. Abdomen/Pelvis CT 02/12/24 14:05 IMPRESSION: Wall thickening, submucosal edema and pericolonic stranding of the cecum and ascending colon with presumably reactive changes of the terminal ileum and appendix. Infectious and inflammatory etiologies should be considered. Small intra-abdominal and intrapelvic ascites. Hepatic steatosis and hepatomegaly. Distended gallbladder. Cholelithiasis. Advise correlation with right upper quadrant ultrasound. Abdomen Ultrasound 02/12/24 17:17 IMPRESSION: Cholelithiasis with gallbladder wall thickening and fluid in the gallbladder wall. Findings are suspicious for acute cholecystitis. Chopra's sign is negative. Assessment and Plan (1) Cholecystitis: Status: Acute Plan Pt is a 68-year-old male with a PMH significant for?ischemic cardiomyopathy, hx of DVT with PE 10 years ago not currently on anticoagulation, ulcerative colitis, peripheral neuropathy, HTN, and chronic venous stasis dermatitis who presents to the ED for evaluation of generalized weakness, nausea, and stomach upset x4 days. Pt will be admitted to the hospital for treatment and further evaluation of generalized weakness failure to thrive in the setting of acute cholecystitis. Acute cholecystitis Patient with abdominal upset/discomfort, anorexia, nausea with no vomiting Abdominal ultrasound with findings suspicious for acute cholecystitis, elevated LFTs Patient does not meet sepsis criteria: HR >90, but no tachypnea, leukocytosis, or fever Patient given IVF and started on broad-spectrum antibiotics in the ED Will treat with Zosyn, started 02/12/2024 Clear liquid diet for now, NPO after midnight General surgery consult Consider GI consult and IR consult for possible gallbladder drainage Follow cultures Lactic acidosis, resovled Initial lactic acid 2.3 with follow-ups 2.2 and 1.6 Received IVF in the ED Pt with hx of similar elevated lactic acid Pt not septic at this time Generalized weakness, failure to thrive PT consult Chronic venous stasis dermatitis Ammonium lactate lotion Peripheral neuropathy Continue gabapentin HTN Continue propranolol Full Code Attending:?Dr. Garibay DVT Prophylaxis: Lovenox Pt will require a hospitalization of at least two nights for treatment of generalized weakness and failure to thrive in the setting of acute cholecystitis. Patient will need hospitalization for administration of IV antibiotics, bowel rest, close monitoring of labs, and specialist consultation with general surgery, IR, and physical therapy. Quality Stroke Does the patient have a stroke diagnosis?: No VTE Prior VTE?: No VTE Risk Level:: Medical - moderate - high VTE Device Contraindication: N/A - Device Ordered VTE Drug Contraindication: Treatment Not Indicated
[2024-02-12] MEDS: Piperacillin Sodium/Tazobactam 4.5 GM in 0.9 % Sodium Chloride 100 ML IV (20:00)
--- NOTE | 2024-02-12 21:56 | PC.NURSE ---
pharmacy to bring up pt lotion.
[2024-02-12] MEDS: Ammonium Lactate 12 % Lotion 226 GM BOTTLE 1 APPL TOPICAL (22:03)
--- NOTE | 2024-02-12 22:06 | PC.NURSE ---
this rn applied medicated lotion to bilateral lower extremities, pt tolerated well.
--- NOTE | 2024-02-12 22:08 | PHA.MEDREC ---
Pharmacy Consult ? Medication Reconciliation Pharmacy has completed the medication reconciliation. Spoke to patient, he said the only medication he takes is gabapentin as needed.
[2024-02-13] MEDS: cefTRIAXone sodium 1 GM in 0.9 % Sodium Chloride 50 ML IV ×2 (00:50→11:59)
--- NOTE | 2024-02-13 00:55 | PC.NURSE ---
pt assisted to bedside commode, pt stand and pivot with stand by assist. tolerated well.
[2024-02-13 01:34] VITALS: BP 158/82; PULSE 84; RESP 17; TEMP 36.8; O2SAT 94
[2024-02-13] MEDS: Piperacillin Sodium/Tazobactam 4.5 GM in 0.9 % Sodium Chloride 100 ML IV ×4 (01:42→19:22)
[2024-02-13 05:58] VITALS: BP 142/80; PULSE 84; RESP 16; TEMP 36.8; O2SAT 100
[2024-02-13 06:55] LABS: MANUAL DIFF FLAG NO
[2024-02-13 06:57] LABS: Basophils Absolute Auto 0.1 X10*3/uL (0.0-0.2); Basophils Percent Auto 1.3 % (0-2); Eosinophils Absolute Auto 0.3 X10*3/uL (0.0-0.4); Eosinophils Percent Auto 3.3 % (0-4); Hematocrit 36.7 % (42.0-52.0); Hemoglobin 12.7 g/dl (14.0-18.0); Imm Gran Abs Auto 0.05 X10*3/uL (0.00-0.03); Imm Gran Pct Auto 0.5 % (0.0-0.4); Lymphocytes Percent Auto 9.6 % (20-40); Mean Corpuscular HGB Conc 34.6 g/dl (31.0-36.0); Mean Corpuscular Hemoglobin 39.7 pg (27.0-33.0); Mean Platelet Volume 9.2 fL (9.4-12.4); Monocytes Percent Auto 10.3 % (2-11); Neutrophils Absolute Auto 7.4 x10*3/uL (2.0-8.3); Platelet Count 151 X10*3/uL (160-400); Red Cell Distribution Width 13.5 % (11.0-16.0); White Blood Count 9.9 X10*3/uL (4.8-10.8)
[2024-02-13 07:02] LABS: Mean Corpuscular Volume 114.7 fL (80.0-98.0)
[2024-02-13 07:05] VITALS: BP 138/75; PULSE 81; RESP 16; TEMP 36.4; O2SAT 100
[2024-02-13 07:11] LABS: Anion Gap 10 (12-20); Blood Urea Nitrogen 5 mg/dL (9-16); Carbon Dioxide 31 mmol/L (22-29); Chloride 103 mmol/L (96-108); Creatinine Clr Calc Pharmacy 131.9; Estimated Glomerular Filt Rate > 60; Glucose Random 132 mg/dL (60-115); Potassium 4.1 mmol/L (3.3-5.1); Sodium 140 mmol/L (135-145)
[2024-02-13 07:17] LABS: Calcium 8.4 mg/dL (8.4-10.2)
--- NOTE | 2024-02-13 07:24 | HO.PM.IMPN ---
Subjective Subjective Date of Service: 02/13/24 Interval History: Seen in follow up for acute cholecystitis Interval history: Reports large BM last night w/ BRBPR, hadnt had BM x2 weeks. Reports this is normal for him. Reports landlord does not provide heat/hot water, cant shower. No abd pain, n/v Review of Systems Review of Systems: Yes all other systems are reviewed and are negative Physical Exam Vital Signs: Vital Signs: Last Vital Signs Temp 97.5 F 02/13/24 07:05 Pulse 81 02/13/24 07:05 Resp 16 02/13/24 07:05 BP 138/75 02/13/24 07:05 Pulse Ox 100 02/13/24 07:05 O2 Del Method Room Air 02/13/24 07:05 BMI result Body Mass Index 29.1 Constitutional - Awake and Alert, No apparent distress Eyes - PERRLA, EOMI Cardiovascular - S1S2, RRR, No edema Respiratory - Normal lung expansion, Normal respiratory effort, No respiratory distress, CTA bilaterally Gastrointestinal - RUQ ttp without mayberry sign. ND; +BS; No rebound or guarding Extremities - no calf tenderness bilaterally, no swelling Skin - Warm/Dry. chronic venous stasis dermatitis Neurological - Alert & oriented x3 Psychological - Appropriate affect Objective Data Active Medications Acetaminophen (Acetaminophen 325 Mg Tablet) 650 mg PO Q6H PRN PRN Reason: Pain, Mild (Pain Scale 1-3) Ceftriaxone Sodium 1 gm/ (Sodium Chloride) 50 mls @ 100 mls/hr IV Q12H [facility] Last Infusion: 02/13/24 01:20 Dose: Infused Documented By: JER Piperacillin Sod/Tazobactam (Sod 4.5 gm/ Sodium Chloride) 100 mls @ 200 mls/hr IV Q6H [facility] Last Infusion: 02/13/24 02:12 Dose: Infused Documented By: JER Lactic Acid (Ammonium Lactate 12 % Lotion 226 Gm Bottle) 1 appl TOPICAL BID [facility]; Protocol Last Admin: 02/12/24 22:03 Dose: 1 appl Documented By: JER Melatonin (Melatonin 3 Mg Tablet) 6 mg PO BEDTIME PRN PRN Reason: Insomnia Morphine Sulfate (Morphine Sulfate 4 Mg/Ml Cartridge) 4 mg IVPUSH Q4H PRN; Protocol PRN Reason: Pain, Severe (Pain Scale 7-10) Ondansetron HCl (Ondansetron Hcl 4 Mg/2 Ml Vial) 4 mg IVPUSH Q8H PRN PRN Reason: Nausea and Vomiting Sodium Chloride (0.9 % Sodium Chloride Flush 3 Ml Syringe) 3 ml IVFLUSH QSHIFT [facility] Last Admin: 02/13/24 00:55 Dose: Not Given Documented By: JER Non-Admin Reason: IV Running Labs 02/13/24 05:56 02/13/24 05:56 Labs: Laboratory Results - last 24 hr 02/12/24 02/12/24 02/12/24 11:23 11:57 13:55 MCV 113.5 H MCH 40.2 H MCHC 35.4 RDW 13.7 Plt Count 176 D MPV 9.0 L Immature Gran % (Auto) 0.4 Neut % (Auto) 74.4 H Lymph % (Auto) 15.5 L [place] % (Auto) 8.3 Eos % (Auto) 0.6 Baso % (Auto) 0.8 Lymph # (Auto) 1.6 [place] # (Auto) 0.9 Eos # (Auto) 0.1 Baso # (Auto) 0.1 Abs Immat Gran (auto) 0.04 H Absolute Neuts (auto) 7.6 Absolute Nucleated RBC 0.000 Nucleated RBC % (auto) 0.0 PT 14.9 H INR 1.2 H Anion Gap 14 Estim Creat Clear Calc 131.9 Estimated GFR > 60 Random Glucose 119 H Lactic Acid 2.3 H* Lactic Acid F/U @ 2Hr 2.4 H* Lactic Acid F/U @ 4Hr Calcium 9.3 Total Bilirubin 2.9 H AST 149 H ALT 39 Alkaline Phosphatase 247 H Total Creatine Kinase 18 L Troponin I High Sens 8.6 B-Natriuretic Peptide 183 H Total Protein 8.1 H Albumin 3.4 L Urine Color Yellow Urine Appearance Clear Urine pH >= 9.0 Ur Specific [place] <= 1.005 Urine Protein Negative Urine Glucose (UA) Negative Urine Ketones Negative Urine Blood Negative Urine Nitrite Negative Ur Leukocyte Esterase Negative Ethyl Alcohol < 10 02/12/24 02/13/24 16:15 05:56 MCV 114.7 H MCH 39.7 H MCHC 34.6 RDW 13.5 Plt Count 151 L MPV 9.2 L Immature Gran % (Auto) 0.5 H Neut % (Auto) 75.0 H Lymph % (Auto) 9.6 L [place] % (Auto) 10.3 Eos % (Auto) 3.3 Baso % (Auto) 1.3 Lymph # (Auto) 1.0 L [place] # (Auto) 1.0 Eos # (Auto) 0.3 Baso # (Auto) 0.1 Abs Immat Gran (auto) 0.05 H Absolute Neuts (auto) 7.4 Absolute Nucleated RBC 0.000 Nucleated RBC % (auto) 0.0 PT INR Anion Gap 10 L Estim Creat Clear Calc 131.9 Estimated GFR > 60 Random Glucose 132 H Lactic Acid Lactic Acid F/U @ 2Hr Lactic Acid F/U @ 4Hr 1.6 Calcium 8.4 D Total Bilirubin AST ALT Alkaline Phosphatase Total Creatine Kinase Troponin I High Sens B-Natriuretic Peptide Total Protein Albumin Urine Color Urine Appearance Urine pH Ur Specific [place] Urine Protein Urine Glucose (UA) Urine Ketones Urine Blood Urine Nitrite Ur Leukocyte Esterase Ethyl Alcohol Assessment and Plan (1) Cholecystitis: Status: Acute (2) BRBPR (bright red blood per rectum): Status: Acute Plan 68-year-old male with a PMH significant for?ischemic cardiomyopathy, hx of DVT with PE 10 years ago not currently on anticoagulation, ulcerative colitis, peripheral neuropathy, HTN, and chronic venous stasis dermatitis admitted for further management of acute cholecystitis. #Acute cholecytitis -ongoing RUQ ttp. n/v resolved -continue zosyn (initiated 02/11) -Keep NPO, resume IVF -general surgery consult -Consider GI consult and IR consult for possible gallbladder drainage pending gen surgery eval -follow cbc/cultures #Acute lactic acidosis- resolved -no sepsis #Chronic constipation -BM last night after 2 weeks, reports this is his normal -Initiate miralax, docusate bid -gi consult #BRBPR with acute on chronic macrocytic anemia -? Hemorrhoidal in setting of constipation -stool occult blood pending -GI consult -H/H 15.5/43.8% --> 12.7/36.7%, ?blood loss vs hemoconcentration -Follow h/h #generalized weakness/ftt -poor outpt follow up, concern re living situation- CM to follow -PT eval # chronic venous stasis dermatitis -venous duplex negative for DVT. Arterial duplex negative for any hemodynamically significant arterial disease -continue ammonium lactate b.i.d. # diabetic polyneuropathy -continue gabapentin # hypertension -not on home medications, hold on initiating at this time -monitor BP #Chronic macrocytic anemia -as above -vitamin b12 and folic acid pending DVT prophylaxis-Lovenox Full code Patient requires inpatient stay at least 2 midnights for management of acute cholecystitis currently NPO awaiting specialist consultation and will likely undergo surgical procedure versus IR drainage. He will also require expert consultation due to bright red blood per rectum with acute on chronic anemia Quality Stroke Does the patient have a stroke diagnosis?: No VTE Prior VTE?: No VTE Risk Level:: Medical - moderate - high VTE Device Contraindication: N/A - Device Ordered VTE Drug Contraindication: Treatment Not Indicated
[2024-02-13] MEDS: Ammonium Lactate 12 % Lotion 226 GM BOTTLE 1 APPL TOPICAL ×2 (07:51→20:56)
[2024-02-13] MEDS: Morphine Sulfate 4 MG/ML CARTRIDGE IVPUSH ×3 (08:46→22:21)
--- NOTE | 2024-02-13 09:00 | PC.NURSE ---
patient is resting quietly in bed, patient repositioned to comfortable position. patient VSS, bilat lower legs dry and edematous medicated cream applied per MAR. patient respirations equal and unlabored, skin dry and intact. patient medicated per MAR, alert and oriented x3.
[2024-02-13] MEDS: polyethylene glycoL 3350 17 GM POWD.PACK PO (10:13)
[2024-02-13] MEDS: 0.9 % Sodium Chloride 1,000 ML 100 ML IVCONT ×2 (10:13→22:21)
[2024-02-13] MEDS: Docusate Sodium 100 MG CAPSULE PO ×2 (10:13→20:56)
[2024-02-13 11:33] LABS: Alanine Aminotransferase 26 U/L (0-40); Albumin Level 2.3 g/dL (3.5-5.0); Alkaline Phosphatase 160 U/L (39-117); Aspartate Amino Transferase 90 U/L (5-37); Bilirubin Total 1.7 mg/dL (0.0-1.0); Total Protein 5.6 g/dL (6.5-8.0)
[2024-02-13 13:31] VITALS: BP 138/75; PULSE 81; O2SAT 100
--- NOTE | 2024-02-13 14:07 | P.CONGS_ITS ---
History of Present Illness Consult details Consult date: 02/13/24 Narrative: Patient is a 68-year-old male whom I met in the distant past for an unrelated issue (cellulitis) who now presents with a proximally 4 day history of upper abdominal complaints as well as bilateral lower extremity weakness. Patient has had associated nausea. Part of his workup including CT scan of the abdomen pelvis and ultrasound demonstrate cholelithiasis. The ultrasound demonstrates cholelithiasis but the patient did not have a positive Chopra's sign sonographically. Chart was reviewed and patient evaluated. Patient has a plethora of comorbidities and intercurrent medical problems. Patient has a normal white count and modest hyperbilirubinemia. [facility] Past Medical History Medical History Depression Benign essential tremor Chronic neurologic disease DVT (deep venous thrombosis) Pulmonary embolism Anemia IBS (irritable bowel syndrome) Colitis Ischemic cardiomyopathy Social History Social History Household Members: Friend(s) Housing: House Alcohol intake: current Alcohol intake frequency: 3 or more drinks per day Alcohol type: beer and hard liquor Comment: patient refuses alarms Patient Tobacco Use Status: Former Tobacco user Smoked in Last 30 Days: No Use of substances other than those prescribed or required for medical reasons: No Advance Directives: No Advance Directives Information Provided: Yes Advance Directives Date on File: 05/28/23 Nutrition Risks: No Nutritional Risk service: No Meds Allergies Allergy/AdvReac Type Severity Reaction Status Date / Time No Known Allergies Allergy Verified 02/12/24 11:01 [No Known Allergies*] Active Medications: Current Medications Acetaminophen (Acetaminophen 325 Mg Tablet) 650 mg PO Q6H PRN PRN Reason: Pain, Mild (Pain Scale 1-3) Docusate Sodium (Docusate Sodium 100 Mg Capsule) 100 mg PO BID [facility] Last Admin: 02/13/24 10:13 Dose: 100 mg Gabapentin (Gabapentin 100 Mg Capsule) 100 mg PO TID PRN PRN Reason: neuropathic pain legs Ceftriaxone Sodium 1 gm/ (Sodium Chloride) 50 mls @ 100 mls/hr IV Q12H [facility] Last Admin: 02/13/24 11:59 Dose: 100 mls/hr Piperacillin Sod/Tazobactam (Sod 4.5 gm/ Sodium Chloride) 100 mls @ 200 mls/hr IV Q6H [facility] Last Infusion: 02/13/24 08:25 Dose: Infused Sodium Chloride (Ns) 1,000 mls @ 100 mls/hr IVCONT .Q10H [facility] Last Admin: 02/13/24 10:13 Dose: 100 mls/hr Lactic Acid (Ammonium Lactate 12 % Lotion 226 Gm Bottle) 1 appl TOPICAL BID [facility]; Protocol Last Admin: 02/13/24 07:51 Dose: 1 appl Melatonin (Melatonin 3 Mg Tablet) 6 mg PO BEDTIME PRN PRN Reason: Insomnia Morphine Sulfate (Morphine Sulfate 4 Mg/Ml Cartridge) 4 mg IVPUSH Q4H PRN; Protocol PRN Reason: Pain, Severe (Pain Scale 7-10) Last Admin: 02/13/24 08:46 Dose: 4 mg Ondansetron HCl (Ondansetron Hcl 4 Mg/2 Ml Vial) 4 mg IVPUSH Q8H PRN PRN Reason: Nausea and Vomiting Polyethylene Glycol (Polyethylene Glycol 3350 17 Gm Powd.Pack) 17 gm PO DAILY [facility] Last Admin: 02/13/24 10:13 Dose: 17 gm Sodium Chloride (0.9 % Sodium Chloride Flush 3 Ml Syringe) 3 ml IVFLUSH QSHIFT [facility] Last Admin: 02/13/24 07:53 Dose: Not Given Home Medications ?Medication ?Instructions ?Recorded ?Confirmed ?Last Taken ?Type gabapentin 100 mg capsule 100 mg PO TID PRN Pain 03/19/23 02/12/24 Unknown History Physical Exam 2 Vital Signs: Vital Signs: Last Vital Signs Temp 97.5 F 02/13/24 07:05 Pulse 81 02/13/24 13:31 Resp 16 02/13/24 07:05 BP 138/75 02/13/24 13:31 Pulse Ox 100 02/13/24 13:31 O2 Del Method Room Air 02/13/24 07:05 BMI result Body Mass Index 29.1 Const: Other: Elderly frail looking man, very loquacious but difficult to obtain history because of his pressure of speech GI: Other: Abdomen moderately corpulent, distended. Mild upper abdominal tenderness. Patient did not have a Chopra sign per se. Results Labs 02/13/24 05:56 02/13/24 05:56 Labs: Abnormal lab results 02/12/24 02/13/24 Range/Units 13:55 05:56 RBC 3.20 L (4.60-5.80) X10*6/uL Hgb 12.7 L (14.0-18.0) g/dl Hct 36.7 L (42.0-52.0) % MCV 114.7 H (80.0-98.0) fL MCH 39.7 H (27.0-33.0) pg Plt Count 151 L (160-400) X10*3/uL MPV 9.2 L (9.4-12.4) fL Immature Gran % (Auto) 0.5 H (0.0-0.4) % Neut % (Auto) 75.0 H (45-73) % Lymph % (Auto) 9.6 L (20-40) % Lymph # (Auto) 1.0 L (1.2-4.9) X10*3/uL Abs Immat Gran (auto) 0.05 H (0.00-0.03) X10*3/uL Carbon Dioxide 31 H (22-29) mmol/L Anion Gap 10 L (12-20) BUN 5 L (9-16) mg/dL Random Glucose 132 H (60-115) mg/dL Lactic Acid F/U @ 2Hr 2.4 H* (0.5-2.0) mmol/L Total Bilirubin 1.7 H (0.0-1.0) mg/dL Direct Bilirubin 1.0 H (0.0-0.5) mg/dL AST 90 H (5-37) U/L Alkaline Phosphatase 160 H (39-117) U/L Total Protein 5.6 L (6.5-8.0) g/dL Albumin 2.3 L (3.5-5.0) g/dL Short CBC 02/13/24 Range/Units 05:56 WBC 9.9 (4.8-10.8) X10*3/uL Hgb 12.7 L (14.0-18.0) g/dl Hct 36.7 L (42.0-52.0) % Plt Count 151 L (160-400) X10*3/uL BMP 02/13/24 05:56 Sodium 140 Potassium 4.1 Chloride 103 Carbon Dioxide 31 H BUN 5 L Creatinine 0.62 Calcium 8.4 D Liver Function 02/13/24 Range/Units 05:56 Total Bilirubin 1.7 H (0.0-1.0) mg/dL Direct Bilirubin 1.0 H (0.0-0.5) mg/dL AST 90 H (5-37) U/L ALT 26 (0-40) U/L Alkaline Phosphatase 160 H (39-117) U/L Albumin 2.3 L (3.5-5.0) g/dL Urine 02/12/24 Range/Units 11:57 Urine Color Yellow Urine Appearance Clear Urine pH >= 9.0 (5.0-9.0) Ur Specific [place] <= 1.005 (1.005-1.025) Urine Protein Negative (Neg-Trace) mg/dL Urine Glucose (UA) Negative (Negative) mg/dL All other labs normal. Assessment and Plan (1) Abdominal pain: Status: Acute Plan Patient is a very high-risk surgical candidate with his history of cardiomyopathy as well as other comorbidities. Consider GI consultation as well as interventional radiologic gallbladder drainage if symptoms persist. Continue general restorative measures with serial labs and exams. To follow Procedures Date of Service Date of Service: 02/13/24
--- NOTE | 2024-02-13 15:27 | PC.NURSE ---
patients IV fell out, new IV placed, patient has 20 in the left AC
[2024-02-13 16:35] VITALS: BP 123/70; PULSE 80; RESP 16; TEMP 36.9; O2SAT 100
[2024-02-13 22:22] VITALS: BP 115/67; PULSE 80; RESP 16; TEMP 36.9; O2SAT 100
[2024-02-14] MEDS: cefTRIAXone sodium 1 GM in 0.9 % Sodium Chloride 50 ML IV ×2 (01:30→11:43)
[2024-02-14] MEDS: Piperacillin Sodium/Tazobactam 4.5 GM in 0.9 % Sodium Chloride 100 ML IV ×4 (02:04→20:33)
[2024-02-14 06:02] VITALS: BP 136/82; PULSE 75; RESP 16; TEMP 36.3; O2SAT 97
--- NOTE | 2024-02-14 07:35 | HO.PM.IMPN ---
Subjective Subjective Date of Service: 02/14/24 Interval History: Seen in follow up for acute cholecystitis Interval history: No recurrent BM or BRBPR. NO abd pain, N/V. Reports lightheadedness following morphine administration. No other complaints. VSS. Review of Systems Review of Systems: Yes all other systems are reviewed and are negative Physical Exam Vital Signs: Vital Signs: Last Vital Signs Temp 97.3 F 02/14/24 06:02 Pulse 75 02/14/24 06:02 Resp 16 02/14/24 06:02 BP 136/82 02/14/24 06:02 Pulse Ox 97 02/14/24 06:02 O2 Del Method Room Air 02/14/24 06:02 BMI result Body Mass Index 29.1 Constitutional - Awake and Alert, No apparent distress Eyes - PERRLA, EOMI Cardiovascular - S1S2, RRR, No edema Respiratory - Normal lung expansion, Normal respiratory effort, No respiratory distress, CTA bilaterally Gastrointestinal - mild RUQ ttp. ND; +BS; No rebound or guarding Extremities - no calf tenderness bilaterally, no swelling Skin - Warm/Dry Neurological - Alert & oriented x3, CN II-XII in tact, 5/5 strength BUE and BLE Psychological - Appropriate affect Objective Data Active Medications Acetaminophen (Acetaminophen 325 Mg Tablet) 650 mg PO Q6H PRN PRN Reason: Pain, Mild (Pain Scale 1-3) Docusate Sodium (Docusate Sodium 100 Mg Capsule) 100 mg PO BID [facility] Last Admin: 02/13/24 20:56 Dose: 100 mg Documented By: NANY Gabapentin (Gabapentin 100 Mg Capsule) 100 mg PO TID PRN PRN Reason: neuropathic pain legs Ceftriaxone Sodium 1 gm/ (Sodium Chloride) 50 mls @ 100 mls/hr IV Q12H [facility] Last Infusion: 02/14/24 01:58 Dose: Infused Documented By: NANY Piperacillin Sod/Tazobactam (Sod 4.5 gm/ Sodium Chloride) 100 mls @ 200 mls/hr IV Q6H [facility] Last Infusion: 02/14/24 02:47 Dose: Infused Documented By: NANY Sodium Chloride (Ns) 1,000 mls @ 100 mls/hr IVCONT .Q10H [facility] Last Admin: 02/13/24 22:21 Dose: 100 mls/hr Documented By: NANY Lactic Acid (Ammonium Lactate 12 % Lotion 226 Gm Bottle) 1 appl TOPICAL BID [facility]; Protocol Last Admin: 02/13/24 20:56 Dose: 1 appl Documented By: NANY Melatonin (Melatonin 3 Mg Tablet) 6 mg PO BEDTIME PRN PRN Reason: Insomnia Morphine Sulfate (Morphine Sulfate 4 Mg/Ml Cartridge) 4 mg IVPUSH Q4H PRN; Protocol PRN Reason: Pain, Severe (Pain Scale 7-10) Last Admin: 02/13/24 22:21 Dose: 4 mg Documented By: NANY Ondansetron HCl (Ondansetron Hcl 4 Mg/2 Ml Vial) 4 mg IVPUSH Q8H PRN PRN Reason: Nausea and Vomiting Polyethylene Glycol (Polyethylene Glycol 3350 17 Gm Powd.Pack) 17 gm PO DAILY [facility] Last Admin: 02/13/24 10:13 Dose: 17 gm Documented By: RHONDA Sodium Chloride (0.9 % Sodium Chloride Flush 3 Ml Syringe) 3 ml IVFLUSH QSHIFT [facility] Last Admin: 02/14/24 01:30 Dose: Not Given Documented By: NANY Non-Admin Reason: IV Running Labs 02/14/24 09:04 02/14/24 09:04 Labs: Laboratory Results - last 24 hr 02/13/24 05:56 Total Bilirubin 1.7 H Direct Bilirubin 1.0 H AST 90 H ALT 26 Alkaline Phosphatase 160 H Total Protein 5.6 L Albumin 2.3 L Microbiology Microbiology Results: Microbiology 02/12/24 11:57 Blood Culture - Preliminary Blood - Venous No growth after 24 hours. 02/12/24 11:23 Blood Culture - Preliminary Blood - Venous No growth after 24 hours. Assessment and Plan (1) Cholecystitis: Status: Acute (2) BRBPR (bright red blood per rectum): Status: Acute Plan 68-year-old male with a PMH significant for?ischemic cardiomyopathy, hx of DVT with PE 10 years ago not currently on anticoagulation, ulcerative colitis, peripheral neuropathy, HTN, and chronic venous stasis dermatitis admitted for further management of acute cholecystitis. #Acute cholecytitis -ongoing RUQ ttp, but improved. n/v resolved -continue zosyn (initiated 02/11) -Advanced to clear liquids -Per general surgery- no invasive cholecystectomy due to high surgical risk. recommending GI consult and IR gallbladder drainage if symptoms persist -awaiting GI recommendations -follow cbc/cultures #Acute lactic acidosis- resolved -no sepsis #Chronic constipation -BM last night after 2 weeks, reports this is his normal -continue miralax, docusate bid -gi consult #BRBPR with acute on chronic macrocytic anemia -? Hemorrhoidal in setting of constipation -stool occult blood pending -clear liquid diet for now per GI -GI consult -H/H 15.5/43.8% --> 12.7/36.7% --> 13.1/38.0%, ?blood loss vs hemoconcentration -Follow h/h #generalized weakness/ftt -poor outpt follow up, concern re living situation- CM to follow -PT eval- recommending STR # chronic venous stasis dermatitis -venous duplex negative for DVT. Arterial duplex negative for any hemodynamically significant arterial disease -continue ammonium lactate b.i.d. # diabetic polyneuropathy -continue gabapentin # hypertension -not on home medications, hold on initiating at this time -monitor BP #Chronic macrocytic anemia -as above -vitamin b12 and folic acid pending DVT prophylaxis-Lovenox Full code Patient requires ongoing inpatient stay for management of acute cholecystitis with possible IR drainage and requiring GI consultation pending clinical improvements. He has also had large bm with significant BRBPR requiring close monitoring of blood counts, expert consultation and probable colonoscopy given acute on chronic anemia. Quality Stroke Does the patient have a stroke diagnosis?: No VTE Prior VTE?: No VTE Risk Level:: Medical - moderate - high VTE Device Contraindication: N/A - Device Ordered VTE Drug Contraindication: Treatment Not Indicated
[2024-02-14 08:06] VITALS: RESP 16
[2024-02-14] MEDS: Morphine Sulfate 4 MG/ML CARTRIDGE IVPUSH ×3 (08:06→20:33)
[2024-02-14] MEDS: 0.9 % Sodium Chloride Flush 3 ML SYRINGE IVFLUSH (08:09)
--- NOTE | 2024-02-14 08:12 | PM.GICN ---
History of Present Illness Data of Consult Service Date: 02/14/24 Requesting physician: Norma Guerrero Primary Care Provider: Katy Peters MD HPI Reason for consult: rectal bleeding 68-year-old male with hx of?ischemic cardiomyopathy, hx of DVT with PE 10 years ago not currently on anticoagulation, ulcerative colitis, peripheral neuropathy, HTN, and chronic venous stasis dermatitis who I am seeing for assessment for rectal bleeding. Initially presented to [facility] with generalized weakness, nausea, and stomach upset x4 days with nausea but no emesis with poor appetite. Denies chest pain/pressure, palpitations. No shortness of breath or difficulty breathing. Denies fever, chills. Whilst here he had a large bowel motion with some fresh blood noted which he says is normal for him. He has had numerous colonoscopies in the past--last one being 5 yrs ago, unsure of his gastroneterologst and medicines he is on if any. LABS: MCV 113.5, lactic acid 2.3 with repeat 2.4 and 1.6, total bilirubin 2.9, AST 149, alk-phos 247, BNP mildly elevated at 183. No leukocytosis. Stable H&H. No significant electrolyte abnormalities. Renal function baseline. Imaging: CXR. CT?of abdomen and pelvis: distended gallbladder with cholelithiasis. Also noted wall thickening, submucosal edema, and pericolonic stranding of cecum and ascending colon Additionally showed small intra-abdominal and intrapelvic ascites and hepatic steatosis and hepatomegaly. Abdominal ultrasound: cholelithiasis with gallbladder wall thickening and fluid and gallbladder wall, suspicious for acute cholecystitis. Arterial duplex of lower extremities bilaterally showed no evidence of hemodynamically significant arterial disease. Venous duplex of lower extremities bilaterally neg for DVT Review of Systems Review of Systems: Constitutional : No Weight loss, No Fever, No Chills ENT/Mouth : No sore throat, No Rhinorrhea Eyes: No Swelling, No Redness Cardiovascular : No Chest Pain, No SOB, No Edema Respiratory : No Cough, No Sputum, No Wheezing Gastrointestinal : see HPI Genitourinary : NO Dysuria, No Urinary Frequency, No Hematuria, No Urgency Musculoskeletal : + joint pain, No Myalgias, No Joint Swelling Skin : No Skin Lesions, No rash Neuro : No Weakness, No Numbness, No Dizziness, No Headache Psych : No Anxiety/Panic, No Depression Heme/Lymph: No Bruising, No Lymphadenopathy Endocrine : No Polyuria, No Polydipsia All other systems reviewed and are negative. [facility] Past Medical History Medical History Depression Benign essential tremor Chronic neurologic disease DVT (deep venous thrombosis) Pulmonary embolism Anemia IBS (irritable bowel syndrome) Colitis Ischemic cardiomyopathy Family History Pertinent family history: no fh of ibd Social History Social History Household Members: None Housing: House Do you presently have visiting nurse or other home services: No Alcohol intake: current Alcohol intake frequency: 3 or more drinks per day Alcohol type: beer and hard liquor Comment: patient refuses alarms Patient Tobacco Use Status: Former Tobacco user Tobacco use type: Cigarette Advance Directives Date on File: 05/28/23 service: No Meds Allergies Allergy/AdvReac Type Severity Reaction Status Date / Time No Known Allergies Allergy Verified 02/12/24 11:01 [No Known Allergies*] Active Medications: Current Medications Acetaminophen (Acetaminophen 325 Mg Tablet) 650 mg PO Q6H PRN PRN Reason: Pain, Mild (Pain Scale 1-3) Docusate Sodium (Docusate Sodium 100 Mg Capsule) 100 mg PO BID [facility] Last Admin: 02/14/24 08:09 Dose: Not Given Gabapentin (Gabapentin 100 Mg Capsule) 100 mg PO TID PRN PRN Reason: neuropathic pain legs Ceftriaxone Sodium 1 gm/ (Sodium Chloride) 50 mls @ 100 mls/hr IV Q12H [facility] Last Infusion: 02/14/24 01:58 Dose: Infused Piperacillin Sod/Tazobactam (Sod 4.5 gm/ Sodium Chloride) 100 mls @ 200 mls/hr IV Q6H [facility] Last Infusion: 02/14/24 02:47 Dose: Infused Sodium Chloride (Ns) 1,000 mls @ 100 mls/hr IVCONT .Q10H [facility] Last Infusion: 02/14/24 08:09 Dose: Infused Lactic Acid (Ammonium Lactate 12 % Lotion 226 Gm Bottle) 1 appl TOPICAL BID [facility]; Protocol Last Admin: 02/13/24 20:56 Dose: 1 appl Melatonin (Melatonin 3 Mg Tablet) 6 mg PO BEDTIME PRN PRN Reason: Insomnia Morphine Sulfate (Morphine Sulfate 4 Mg/Ml Cartridge) 4 mg IVPUSH Q4H PRN; Protocol PRN Reason: Pain, Severe (Pain Scale 7-10) Last Admin: 02/14/24 08:06 Dose: 4 mg Ondansetron HCl (Ondansetron Hcl 4 Mg/2 Ml Vial) 4 mg IVPUSH Q8H PRN PRN Reason: Nausea and Vomiting Polyethylene Glycol (Polyethylene Glycol 3350 17 Gm Powd.Pack) 17 gm PO DAILY [facility] Last Admin: 02/14/24 08:09 Dose: Not Given Sodium Chloride (0.9 % Sodium Chloride Flush 3 Ml Syringe) 3 ml IVFLUSH QSHIFT [facility] Last Admin: 02/14/24 08:09 Dose: 3 ml Home Medications ?Medication ?Instructions ?Recorded ?Confirmed ?Last Taken ?Type gabapentin 100 mg capsule 100 mg PO TID PRN Pain 03/19/23 02/12/24 Unknown History Physical Exam Vital Signs: Vital Signs: Last Vital Signs Temp 97.3 F 02/14/24 06:02 Pulse 75 02/14/24 06:02 Resp 16 02/14/24 08:06 BP 136/82 02/14/24 06:02 Pulse Ox 97 02/14/24 06:02 O2 Del Method Room Air 02/14/24 06:02 BMI result Body Mass Index 29.1 EXAM: GENERAL: The patient is dishevelled VITAL SIGNS:see workflow HEENT: Nonicteric sclerae, PERRLA, EOMI. Oropharynx clear. Moist mucous membranes. Conjunctivae appear well perfused. No thyroid mass. CHEST: Chest wall is nontender. HEART: Regular rate and rhythm without murmurs. LUNGS: Clear to auscultation bilaterally. ABDOMEN: Soft, positive bowel sounds, mildly tender RUQ, no organomegaly.no flank tenderness SKIN: dry skin, venous stasis changes with edema NEUROLOGIC: Cranial nerves II-XII intact without motor/sensory deficit. Psych: normal affect Results Labs 02/14/24 09:04 02/14/24 09:04 Labs: Liver Function 02/13/24 Range/Units 05:56 Total Bilirubin 1.7 H (0.0-1.0) mg/dL Direct Bilirubin 1.0 H (0.0-0.5) mg/dL AST 90 H (5-37) U/L ALT 26 (0-40) U/L Alkaline Phosphatase 160 H (39-117) U/L Albumin 2.3 L (3.5-5.0) g/dL Microbiology Microbiology Results: Microbiology 02/12/24 11:57 Blood - Venous Blood Culture - Preliminary No growth after 24 hours. 02/12/24 11:23 Blood - Venous Blood Culture - Preliminary No growth after [address] scan - abdomen: Attestation: I personally reviewed and interpreted this imaging study as follows: (gallstones,small focus of air) Assessment and Plan (1) Cholelithiasis: Status: Acute (2) BRBPR (bright red blood per rectum): Status: Acute (3) Cholecystitis: Status: Acute Plan 1/ Rectal bleeding-hx of UC which maybe active< uncertain hx of treatment and care in the past. hgb is at baseline 2/ gallstones, possible cholecystitis 3/ Macrocytic anemia with reduced folate PLAN: 1/ Recommend colonoscopy for further assessment after GB dealt with 2/ replace folate, nutritional consult 3/ surgical consult for cholecystitis Procedures Date of Service Date of Service: 02/14/24
--- NOTE | 2024-02-14 08:14 | PC.NURSE ---
Pt refuses his stool softener and miralax, reports he does not feel like he needs them. Delay in ABX due to waiting for pharmacy to restock
[2024-02-14 09:09] VITALS: BP 133/82; PULSE 78; RESP 17; TEMP 36.2; O2SAT 97
[2024-02-14 09:10] LABS: MANUAL DIFF FLAG NO
[2024-02-14 09:12] LABS: Basophils Absolute Auto 0.1 X10*3/uL (0.0-0.2); Basophils Percent Auto 1.2 % (0-2); Eosinophils Absolute Auto 0.8 X10*3/uL (0.0-0.4); Eosinophils Percent Auto 7.4 % (0-4); Hemoglobin 13.1 g/dl (14.0-18.0); Imm Gran Abs Auto 0.04 X10*3/uL (0.00-0.03); Imm Gran Pct Auto 0.4 % (0.0-0.4); Lymphocytes Absolute Auto 1.2 X10*3/uL (1.2-4.9); Lymphocytes Percent Auto 11.4 % (20-40); Mean Corpuscular HGB Conc 34.5 g/dl (31.0-36.0); Mean Corpuscular Hemoglobin 39.8 pg (27.0-33.0); Mean Platelet Volume 8.8 fL (9.4-12.4); Monocytes Absolute Auto 1.1 X10*3/uL (0.1-1.2); Monocytes Percent Auto 10.5 % (2-11); Neutrophils Absolute Auto 7.2 x10*3/uL (2.0-8.3); Neutrophils Percent Auto 69.1 % (45-73); Platelet Count 144 X10*3/uL (160-400); Red Blood Count 3.29 X10*6/uL (4.60-5.80); Red Cell Distribution Width 13.6 % (11.0-16.0); White Blood Count 10.4 X10*3/uL (4.8-10.8)
[2024-02-14 09:13] LABS: Mean Corpuscular Volume 115.5 fL (80.0-98.0)
[2024-02-14 09:27] LABS: Alanine Aminotransferase 25 U/L (0-40); Albumin Level 2.4 g/dL (3.5-5.0); Alkaline Phosphatase 155 U/L (39-117); Aspartate Amino Transferase 84 U/L (5-37); Bilirubin Total 1.6 mg/dL (0.0-1.0); Blood Urea Nitrogen 5 mg/dL (9-16); Creatinine Clr Calc Pharmacy 129.8; Estimated Glomerular Filt Rate > 60; Glucose Random 119 mg/dL (60-115); Total Protein 5.8 g/dL (6.5-8.0)
[2024-02-14 09:41] LABS: Anion Gap 11 (12-20); Carbon Dioxide 27 mmol/L (22-29); Chloride 103 mmol/L (96-108); Potassium 3.1 mmol/L (3.3-5.1); Sodium 138 mmol/L (135-145)
[2024-02-14 10:25] VITALS: BMI 29.0
[2024-02-14] MEDS: Potassium Chloride Packet 20 MEQ PACKET 40 MEQ PO (10:47)
[2024-02-14] MEDS: Ammonium Lactate 12 % Lotion 226 GM BOTTLE 1 APPL TOPICAL ×2 (10:49→20:41)
[2024-02-14] MEDS: 0.9 % Sodium Chloride 1,000 ML 100 ML IVCONT ×2 (11:04→20:38)
[2024-02-14 11:14] LABS: Vitamin B12 606 pg/mL (200-900)
--- NOTE | 2024-02-14 14:12 | P.PNGS_ITS ---
Subjective Subjective Date of Service: 02/14/24 Interval history: Patient feeling somewhat better. Still having mild right upper quadrant symptoms. No nausea or vomiting. Passing flatus. Patient was seen by GI and he tells me that he is tentatively scheduled for colonoscopy on Thursday. Physical Exam 2 Vital Signs: Vital Signs: Last Vital Signs Temp 97.1 F 02/14/24 09:09 Pulse 78 02/14/24 09:09 Resp 17 02/14/24 09:09 BP 133/82 02/14/24 09:09 Pulse Ox 97 02/14/24 09:09 O2 Del Method Room Air 02/14/24 09:09 BMI result Body Mass Index 29.0 GI: Other: Moderately corpulent abdomen. Mild right upper quadrant tenderness. No evidence of any guarding, rebound, or rigidity. Objective Data Active Medications Acetaminophen (Acetaminophen 325 Mg Tablet) 650 mg PO Q6H PRN PRN Reason: Pain, Mild (Pain Scale 1-3) Docusate Sodium (Docusate Sodium 100 Mg Capsule) 100 mg PO BID [facility] Last Admin: 02/14/24 08:09 Dose: Not Given Documented By: VIANNEY Non-Admin Reason: Patient Refused Gabapentin (Gabapentin 100 Mg Capsule) 100 mg PO TID PRN PRN Reason: neuropathic pain legs Ceftriaxone Sodium 1 gm/ (Sodium Chloride) 50 mls @ 100 mls/hr IV Q12H [facility] Last Infusion: 02/14/24 12:17 Dose: Infused Documented By: CRYSTAL Piperacillin Sod/Tazobactam (Sod 4.5 gm/ Sodium Chloride) 100 mls @ 200 mls/hr IV Q6H [facility] Last Infusion: 02/14/24 14:02 Dose: Infused Documented By: CRYSTAL Sodium Chloride (Ns) 1,000 mls @ 100 mls/hr IVCONT .Q10H [facility] Last Admin: 02/14/24 11:04 Dose: 100 mls/hr Documented By: CRYSTAL Lactic Acid (Ammonium Lactate 12 % Lotion 226 Gm Bottle) 1 appl TOPICAL BID [facility]; Protocol Last Admin: 02/14/24 10:49 Dose: 1 appl Documented By: CRYSTAL Melatonin (Melatonin 3 Mg Tablet) 6 mg PO BEDTIME PRN PRN Reason: Insomnia Morphine Sulfate (Morphine Sulfate 4 Mg/Ml Cartridge) 4 mg IVPUSH Q4H PRN; Protocol PRN Reason: Pain, Severe (Pain Scale 7-10) Last Admin: 02/14/24 13:17 Dose: 4 mg Documented By: CRYSTAL Ondansetron HCl (Ondansetron Hcl 4 Mg/2 Ml Vial) 4 mg IVPUSH Q8H PRN PRN Reason: Nausea and Vomiting Polyethylene Glycol (Polyethylene Glycol 3350 17 Gm Powd.Pack) 17 gm PO DAILY [facility] Last Admin: 02/14/24 08:09 Dose: Not Given Documented By: VIANNEY Non-Admin Reason: Patient Refused Sodium Chloride (0.9 % Sodium Chloride Flush 3 Ml Syringe) 3 ml IVFLUSH QSHIFT [facility] Last Admin: 02/14/24 08:09 Dose: 3 ml Documented By: VIANNEY Labs 02/14/24 09:04 02/14/24 09:04 Labs: Laboratory Results - last 24 hr 02/14/24 09:04 MCV 115.5 H MCH 39.8 H MCHC 34.5 RDW 13.6 Plt Count 144 L MPV 8.8 L Immature Gran % (Auto) 0.4 Neut % (Auto) 69.1 Lymph % (Auto) 11.4 L [place] % (Auto) 10.5 Eos % (Auto) 7.4 H Baso % (Auto) 1.2 Lymph # (Auto) 1.2 [place] # (Auto) 1.1 Eos # (Auto) 0.8 H Baso # (Auto) 0.1 Abs Immat Gran (auto) 0.04 H Absolute Neuts (auto) 7.2 Absolute Nucleated RBC 0.000 Nucleated RBC % (auto) 0.0 Anion Gap 11 L Estim Creat Clear Calc 129.8 Estimated GFR > 60 Random Glucose 119 H Calcium 8.0 L Total Bilirubin 1.6 H Direct Bilirubin 1.0 H AST 84 H ALT 25 Alkaline Phosphatase 155 H Total Protein 5.8 L Albumin 2.4 L Vitamin B12 606 Folate 3.0 L Microbiology Microbiology Results: Microbiology 02/12/24 11:57 Blood Culture - Preliminary Blood - Venous No growth after 48 hours. 02/12/24 11:23 Blood Culture - Preliminary Blood - Venous No growth after 48 hours. Procedures Date of Service Date of Service: 02/14/24 Progress Note: A&P Assessment and plan (1) Cholelithiasis: Status: Acute (2) Cholecystitis: Status: Acute Plan If patient's right upper quadrant symptoms persist, along with his being a very high operative risk, consideration for interventional radiologic gallbladder drainage should be considered. To follow. Colonoscopy scheduled for Thursday per patient. Time Spent With Patient Time: Total time managing care of this patient today ____ minutes. Quality Stroke Does the patient have a stroke diagnosis?: No VTE Prior VTE?: No VTE Risk Level:: Medical - moderate - high VTE Device Contraindication: N/A - Device Ordered VTE Drug Contraindication: Treatment Not Indicated
--- NOTE | 2024-02-14 14:14 | PC.NURSE ---
Pt came to hospital with $740.00 patel that GENARO Vasquez counted with pt. Pt refused to let staff put money in safe in securityi office, stating that he wanted it with him.
[2024-02-14 15:23] VITALS: BP 124/76; PULSE 82; RESP 16; TEMP 36.6; O2SAT 97
[2024-02-14 19:36] VITALS: BP 138/68; PULSE 81; RESP 18; TEMP 36.2; O2SAT 99
[2024-02-15] MEDS: Piperacillin Sodium/Tazobactam 4.5 GM in 0.9 % Sodium Chloride 100 ML IV ×4 (01:52→20:12)
[2024-02-15 03:50] VITALS: BP 129/73; PULSE 77; RESP 18; TEMP 36.2; O2SAT 100
[2024-02-15] MEDS: Morphine Sulfate 4 MG/ML CARTRIDGE IVPUSH ×4 (04:26→20:13)
[2024-02-15] MEDS: 0.9 % Sodium Chloride 1,000 ML 100 ML IVCONT ×2 (05:29→16:01)
[2024-02-15 05:59] LABS: Alanine Aminotransferase 28 U/L (0-40); Albumin Level 2.3 g/dL (3.5-5.0); Alkaline Phosphatase 158 U/L (39-117); Anion Gap 11 (12-20); Aspartate Amino Transferase 91 U/L (5-37); Bilirubin Total 1.5 mg/dL (0.0-1.0); Blood Urea Nitrogen 4 mg/dL (9-16); Carbon Dioxide 26 mmol/L (22-29); Chloride 106 mmol/L (96-108); Creatinine Clr Calc Pharmacy 127.7; Estimated Glomerular Filt Rate > 60; Glucose Random 111 mg/dL (60-115); Potassium 3.9 mmol/L (3.3-5.1); Sodium 139 mmol/L (135-145); Total Protein 5.7 g/dL (6.5-8.0)
[2024-02-15] MEDS: Folic Acid 1 MG TABLET PO (07:59)
[2024-02-15 08:00] VITALS: BP 135/93; PULSE 74; RESP 18; TEMP 36.1; O2SAT 100
--- NOTE | 2024-02-15 09:54 | HO.PM.IMPN ---
Subjective Subjective Date of Service: 02/15/24 Interval History: Seen in follow up for acute cholecystitis Interval history: he reports no pain, or blood in the stool, tolerating liquid diet Physical Exam Vital Signs: Vital Signs: Last Vital Signs Temp 97.0 F 02/15/24 08:00 Pulse 74 02/15/24 08:00 Resp 18 02/15/24 08:00 BP 135/93 H 02/15/24 08:00 Pulse Ox 100 02/15/24 08:00 O2 Del Method Room Air 02/15/24 08:00 BMI result Body Mass Index 29.0 Constitutional - Awake and Alert, No apparent distress Eyes - PERRLA, EOMI Cardiovascular - S1S2, RRR, No edema Respiratory - Normal lung expansion, Normal respiratory effort, No respiratory distress, CTA bilaterally Gastrointestinal - mild RUQ ttp. ND; +BS; No rebound or guarding Extremities - no calf tenderness bilaterally, no swelling Skin - Warm/Dry Neurological - Alert & oriented x3, CN II-XII in tact, 5/5 strength BUE and BLE Psychological - Appropriate affect Objective Data Active Medications Acetaminophen (Acetaminophen 325 Mg Tablet) 650 mg PO Q6H PRN PRN Reason: Pain, Mild (Pain Scale 1-3) Docusate Sodium (Docusate Sodium 100 Mg Capsule) 100 mg PO BID [facility] Last Admin: 02/15/24 07:57 Dose: Not Given Documented By: LUC Non-Admin Reason: Patient Refused Folic Acid (Folic Acid 1 Mg Tablet) 1 mg PO DAILY [facility] Last Admin: 02/15/24 07:59 Dose: 1 mg Documented By: LUC Gabapentin (Gabapentin 100 Mg Capsule) 100 mg PO TID PRN PRN Reason: neuropathic pain legs Piperacillin Sod/Tazobactam (Sod 4.5 gm/ Sodium Chloride) 100 mls @ 200 mls/hr IV Q6H [facility] Last Admin: 02/15/24 07:56 Dose: 200 mls/hr Documented By: LUC Sodium Chloride (Ns) 1,000 mls @ 100 mls/hr IVCONT .Q10H [facility] Last Admin: 02/15/24 05:29 Dose: 100 mls/hr Documented By: DIPESH Lactic Acid (Ammonium Lactate 12 % Lotion 226 Gm Bottle) 1 appl TOPICAL BID [facility]; Protocol Last Admin: 02/14/24 20:41 Dose: 1 appl Documented By: DIPESH Melatonin (Melatonin 3 Mg Tablet) 6 mg PO BEDTIME PRN PRN Reason: Insomnia Morphine Sulfate (Morphine Sulfate 4 Mg/Ml Cartridge) 4 mg IVPUSH Q4H PRN; Protocol PRN Reason: Pain, Severe (Pain Scale 7-10) Last Admin: 02/15/24 04:26 Dose: 4 mg Documented By: DIPESH Ondansetron HCl (Ondansetron Hcl 4 Mg/2 Ml Vial) 4 mg IVPUSH Q8H PRN PRN Reason: Nausea and Vomiting Polyethylene Glycol (Polyethylene Glycol 3350 17 Gm Powd.Pack) 17 gm PO DAILY [facility] Last Admin: 02/15/24 07:58 Dose: Not Given Documented By: LUC Non-Admin Reason: Patient Refused Sodium Chloride (0.9 % Sodium Chloride Flush 3 Ml Syringe) 3 ml IVFLUSH QSHIFT [facility] Last Admin: 02/15/24 07:47 Dose: Not Given Documented By: LUC Non-Admin Reason: IV Running Labs 02/14/24 09:04 02/15/24 05:22 Labs: Laboratory Results - last 24 hr 02/14/24 02/15/24 09:04 05:22 Hold Purple Top SEE NOTE Anion Gap 11 L Estim Creat Clear Calc 127.7 Estimated GFR > 60 Random Glucose 111 Calcium 8.0 L Total Bilirubin 1.5 H Direct Bilirubin 1.0 H AST 91 H ALT 28 Alkaline Phosphatase 158 H Total Protein 5.7 L Albumin 2.3 L Vitamin B12 606 Folate 3.0 L Microbiology Microbiology Results: Microbiology 02/12/24 11:57 Blood Culture - Preliminary Blood - Venous No growth after 48 hours. 02/12/24 11:23 Blood Culture - Preliminary Blood - Venous No growth after 48 hours. Assessment and Plan (1) Cholecystitis: Status: Acute (2) BRBPR (bright red blood per rectum): Status: Acute Plan 68-year-old male with a PMH significant for?ischemic cardiomyopathy, hx of DVT with PE 10 years ago not currently on anticoagulation, ulcerative colitis, peripheral neuropathy, HTN, and chronic venous stasis dermatitis admitted for further management of acute cholecystitis. #Acute cholecytitis--Pain is betterm -continue zosyn (initiated 02/11) -Liquid diet and advance as elizabeth -Per general surgery- no invasive cholecystectomy due to high surgical risk. recommending GI consult and IR gallbladder drainage if symptoms persist -GI recommends colonoscopy when GB issues dealt with -follow cbc/cultures #Acute lactic acidosis- not due to sepsis resolved #Chronic constipation--can go up to 2 weeks without BM, last BM 2 days ago.. -continue miralax, docusate bid #BRBPR with acute on chronic macrocytic anemia -? Hemorrhoidal in setting of constipation -stool occult blood pending -clear liquid diet for now per GI -H/H 15.5/43.8% --> 12.7/36.7% --> 13.1/38.0%, ?blood loss vs hemoconcentration -colonoscopy in near future #generalized weakness/ftt -poor outpt follow up, concern re living situation- CM to follow -PT eval- recommending STR # chronic venous stasis dermatitis -venous duplex negative for DVT. Arterial duplex negative for any hemodynamically significant arterial disease -continue ammonium lactate b.i.d. # Peripheral neuro polyneuropathy -continue gabapentin # hypertension -not on home medications, hold on initiating at this time -monitor BP #Chronic macrocytic anemia -as above -vitamin b12 and folic acid pending DVT prophylaxis-Lovenox Full code Patient requires ongoing inpatient stay for management of acute cholecystitis with possible IR drainage and requiring GI consultation pending clinical improvements. He has also had large bm with significant BRBPR requiring close monitoring of blood counts, expert consultation and probable colonoscopy given acute on chronic anemia. Quality Stroke Does the patient have a stroke diagnosis?: No VTE Prior VTE?: No VTE Risk Level:: Medical - moderate - high VTE Device Contraindication: N/A - Device Ordered VTE Drug Contraindication: Treatment Not Indicated
[2024-02-15] MEDS: Ammonium Lactate 12 % Lotion 226 GM BOTTLE 1 APPL TOPICAL ×2 (10:29→20:14)
[2024-02-15 10:48] LABS: Hematocrit 38.5 % (42.0-52.0); Hemoglobin 13.3 g/dl (14.0-18.0); Mean Corpuscular HGB Conc 34.5 g/dl (31.0-36.0); Mean Corpuscular Hemoglobin 40.2 pg (27.0-33.0); Mean Platelet Volume 9.4 fL (9.4-12.4); Platelet Count 159 X10*3/uL (160-400); Red Blood Count 3.31 X10*6/uL (4.60-5.80); Red Cell Distribution Width 13.9 % (11.0-16.0); White Blood Count 9.4 X10*3/uL (4.8-10.8)
[2024-02-15 10:49] LABS: Estimated Average Glucose 82 mg/dL; Hemoglobin A1c % 4.5 % (<6.0); Mean Corpuscular Volume 116.3 fL (80.0-98.0)
[2024-02-15 10:55] VITALS: BMI 29.0
--- NOTE | 2024-02-15 11:02 | MHC.CLN ---
NUTRITION DIET=CLEAR LIQUIDS. PATIENT WITH INCREASED PROTEIN NEEDS DUE TO STAGE 2 WOUNDS TO LEFT AND RIGHT BUTTOCKS. WHEN ABLE TO ADVANCE DIET, ADD ENSURE MAX PROTEIN BID TO PROMOTE WOUND HEALING. SUPPLEMENT PROVIDES 300 KCALS, 60 PROTEIN. FOLLOW FOR INTAKE AND WOUND HEALING. SEE CLINICAL NUTRITION ASSESSMENT 02/15/24.
--- NOTE | 2024-02-15 14:47 | MHC.CM.PN ---
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
[2024-02-15 16:00] VITALS: BP 143/87; PULSE 90; RESP 18; TEMP 36.2; O2SAT 100
[2024-02-15 19:26] VITALS: BP 129/74; PULSE 81; RESP 16; TEMP 36.3; O2SAT 100
[2024-02-16] MEDS: Piperacillin Sodium/Tazobactam 4.5 GM in 0.9 % Sodium Chloride 100 ML IV ×4 (01:11→20:28)
[2024-02-16] MEDS: 0.9 % Sodium Chloride 1,000 ML 100 ML IVCONT (01:11)
[2024-02-16] MEDS: Morphine Sulfate 4 MG/ML CARTRIDGE IVPUSH ×4 (01:15→20:21)
[2024-02-16 03:20] VITALS: BP 128/71; PULSE 81; RESP 16; TEMP 36.3; O2SAT 99
[2024-02-16 07:40] VITALS: BP 140/83; PULSE 75; RESP 16; TEMP 36.3; O2SAT 99
[2024-02-16] MEDS: 0.9 % Sodium Chloride Flush 3 ML SYRINGE IVFLUSH ×3 (08:58→20:22)
[2024-02-16] MEDS: Ammonium Lactate 12 % Lotion 226 GM BOTTLE 1 APPL TOPICAL ×2 (08:58→20:24)
[2024-02-16] MEDS: Folic Acid 1 MG TABLET PO (08:59)
--- NOTE | 2024-02-16 09:13 | PM.PNGS ---
Subjective Subjective Date of Service: 02/16/24 Interval history: Patient having persistent right upper quadrant symptoms. Physical Exam Vital Signs: Vital Signs: Last Vital Signs Temp 97.3 F 02/16/24 07:40 Pulse 75 02/16/24 07:40 Resp 16 02/16/24 07:40 BP 140/83 H 02/16/24 07:40 Pulse Ox 99 02/16/24 07:40 O2 Del Method Room Air 02/16/24 07:40 BMI result Body Mass Index 29.0 GI: Other: Patient has right upper quadrant tenderness and a positive Chopra's sign. Minimal improvement from the weekend Objective Data Active Medications Acetaminophen (Acetaminophen 325 Mg Tablet) 650 mg PO Q6H PRN PRN Reason: Pain, Mild (Pain Scale 1-3) Docusate Sodium (Docusate Sodium 100 Mg Capsule) 100 mg PO BID [facility] Last Admin: 02/16/24 08:59 Dose: Not Given Documented By: MACKENZIE Non-Admin Reason: Medication Discontinued Folic Acid (Folic Acid 1 Mg Tablet) 1 mg PO DAILY [facility] Last Admin: 02/16/24 08:59 Dose: 1 mg Documented By: MACKENZIE Gabapentin (Gabapentin 100 Mg Capsule) 100 mg PO TID PRN PRN Reason: neuropathic pain legs Piperacillin Sod/Tazobactam (Sod 4.5 gm/ Sodium Chloride) 100 mls @ 200 mls/hr IV Q6H [facility] Last Admin: 02/16/24 08:58 Dose: 200 mls/hr Documented By: MACKENZIE Sodium Chloride (Ns) 1,000 mls @ 100 mls/hr IVCONT .Q10H [facility] Last Admin: 02/16/24 01:11 Dose: 100 mls/hr Documented By: MADONNA Lactic Acid (Ammonium Lactate 12 % Lotion 226 Gm Bottle) 1 appl TOPICAL BID [facility]; Protocol Last Admin: 02/16/24 08:58 Dose: 1 appl Documented By: MACKENZIE Melatonin (Melatonin 3 Mg Tablet) 6 mg PO BEDTIME PRN PRN Reason: Insomnia Morphine Sulfate (Morphine Sulfate 4 Mg/Ml Cartridge) 4 mg IVPUSH Q4H PRN; Protocol PRN Reason: Pain, Severe (Pain Scale 7-10) Last Admin: 02/16/24 06:08 Dose: 4 mg Documented By: MADONAN Ondansetron HCl (Ondansetron Hcl 4 Mg/2 Ml Vial) 4 mg IVPUSH Q8H PRN PRN Reason: Nausea and Vomiting Polyethylene Glycol (Polyethylene Glycol 3350 17 Gm Powd.Pack) 17 gm PO DAILY [facility] Last Admin: 02/16/24 08:59 Dose: Not Given Documented By: MACKENZIE Non-Admin Reason: Medication Discontinued Sodium Chloride (0.9 % Sodium Chloride Flush 3 Ml Syringe) 3 ml IVFLUSH QSHIFT [facility] Last Admin: 02/16/24 08:58 Dose: 3 ml Documented By: MACKENZIE Labs 02/15/24 05:22 02/15/24 05:22 Labs: Laboratory Results - last 24 hr 02/15/24 05:22 MCV 116.3 H MCH 40.2 H MCHC 34.5 RDW 13.9 Plt Count 159 L MPV 9.4 Absolute Nucleated RBC 0.000 Nucleated RBC % (auto) 0.0 Estimat Average Glucose 82 Hemoglobin A1c % 4.5 Procedures Date of Service Date of Service: 02/16/24 Progress Note: A&P Assessment and plan (1) Cholelithiasis: Status: Acute (2) Acute cholecystitis: Status: Acute Plan I reviewed with the patient that he is a suboptimal operative candidate and would at this time be best served with interventional radiologic drainage of his gallbladder. He agrees to this. Order will be placed. Time Spent With Patient Time: Total time managing care of this patient today ____ minutes. Quality Stroke Does the patient have a stroke diagnosis?: No VTE Prior VTE?: No VTE Risk Level:: Medical - moderate - high VTE Device Contraindication: N/A - Device Ordered VTE Drug Contraindication: Treatment Not Indicated
--- NOTE | 2024-02-16 13:16 | HO.PM.IMPN ---
Subjective Subjective Date of Service: 02/16/24 Interval History: follow up for acute cholecystitis Review of Systems some ruq discomfort with palpation no fevers Physical Exam Vital Signs: Vital Signs: Last Vital Signs Temp 97.3 F 02/16/24 07:40 Pulse 75 02/16/24 07:40 Resp 16 02/16/24 07:40 BP 140/83 H 02/16/24 07:40 Pulse Ox 99 02/16/24 07:40 O2 Del Method Room Air 02/16/24 07:40 BMI result Body Mass Index 29.0 Appearance: Alert.? Oriented X3.? cvs: [id number], [id number] , no murmur res: clear to auscultation ,no rhonchii or wheezing abd: no rebound or guarding ,nt, bs present. ext pulses present , no cyanosis . neuro: axo3 , nonfocal. Objective Data Active Medications Acetaminophen (Acetaminophen 325 Mg Tablet) 650 mg PO Q6H PRN PRN Reason: Pain, Mild (Pain Scale 1-3) Docusate Sodium (Docusate Sodium 100 Mg Capsule) 100 mg PO BID [facility] Last Admin: 02/16/24 08:59 Dose: Not Given Documented By: MACKENZIE Non-Admin Reason: Medication Discontinued Folic Acid (Folic Acid 1 Mg Tablet) 1 mg PO DAILY [facility] Last Admin: 02/16/24 08:59 Dose: 1 mg Documented By: MACKENZIE Gabapentin (Gabapentin 100 Mg Capsule) 100 mg PO TID PRN PRN Reason: neuropathic pain legs Piperacillin Sod/Tazobactam (Sod 4.5 gm/ Sodium Chloride) 100 mls @ 200 mls/hr IV Q6H [facility] Last Infusion: 02/16/24 09:57 Dose: Infused Documented By: MACKENZIE Lactic Acid (Ammonium Lactate 12 % Lotion 226 Gm Bottle) 1 appl TOPICAL BID [facility]; Protocol Last Admin: 02/16/24 08:58 Dose: 1 appl Documented By: MACKENZIE Melatonin (Melatonin 3 Mg Tablet) 6 mg PO BEDTIME PRN PRN Reason: Insomnia Morphine Sulfate (Morphine Sulfate 4 Mg/Ml Cartridge) 4 mg IVPUSH Q4H PRN; Protocol PRN Reason: Pain, Severe (Pain Scale 7-10) Last Admin: 02/16/24 10:32 Dose: 4 mg Documented By: MACKENZIE Ondansetron HCl (Ondansetron Hcl 4 Mg/2 Ml Vial) 4 mg IVPUSH Q8H PRN PRN Reason: Nausea and Vomiting Polyethylene Glycol (Polyethylene Glycol 3350 17 Gm Powd.Pack) 17 gm PO DAILY [facility] Last Admin: 02/16/24 08:59 Dose: Not Given Documented By: MACKENZIE Non-Admin Reason: Medication Discontinued Sodium Chloride (0.9 % Sodium Chloride Flush 3 Ml Syringe) 3 ml IVFLUSH QSHIFT [facility] Last Admin: 02/16/24 08:58 Dose: 3 ml Documented By: MACKENZIE Labs 02/15/24 05:22 02/15/24 05:22 Labs: Laboratory Results - last 24 hr 02/12/24 11:23 Smear Path Review SEE NOTE Assessment and Plan (1) Acute cholecystitis: Status: Acute (2) BRBPR (bright red blood per rectum): Status: Acute Plan 68-year-old male with a PMH significant for?ischemic cardiomyopathy, hx of DVT with PE 10 years ago not currently on anticoagulation, ulcerative colitis, peripheral neuropathy, HTN, and chronic venous stasis dermatitis admitted for further management of acute cholecystitis. Acute cholecytitis--Pain is betterm continue zosyn (initiated 02/11), blood culture neg@48hrs Liquid diet and advance as elizabeth Per general surgery- no invasive cholecystectomy due to high surgical risk. recommending GI consult and possible IR gallbladder drainage . GI recommends colonoscopy when GB issues dealt with -follow cbc/cultures Chronic constipation--can go up to 2 weeks without BM, last BM 2 days ago.. -continue miralax, docusate bid BRBPR with acute on chronic macrocytic anemia -? Hemorrhoidal in setting of constipation -stool occult blood pending -clear liquid diet for now per GI H/h 13.3/38.5 colonoscopy in near future generalized weakness/ftt -poor outpt follow up, concern re living situation- CM to follow -PT eval- recommending STR chronic venous stasis dermatitis -venous duplex negative for DVT. Arterial duplex negative for any hemodynamically significant arterial disease -continue ammonium lactate b.i.d. Peripheral neuro polyneuropathy -continue gabapentin hypertension -not on home medications, hold on initiating at this time -monitor BP Chronic macrocytic anemia -as above -vitamin b12 normal and folic acid low (on folic acid ) DVT prophylaxis-Lovenox Full code ongoing inpatient stay for management of acute cholecystitis with possible IR drainage and requiring GI consultation : . He has also had large bm with significant BRBPR requiring close monitoring of blood counts, expert consultation and probable colonoscopy given acute on chronic anemia. Quality Stroke Does the patient have a stroke diagnosis?: No VTE Prior VTE?: No VTE Risk Level:: Medical - moderate - high VTE Device Contraindication: N/A - Device Ordered VTE Drug Contraindication: Treatment Not Indicated
[2024-02-16 16:00] VITALS: BP 138/74; PULSE 84; RESP 18; TEMP 36.1; O2SAT 99
[2024-02-16 19:20] VITALS: BP 115/73; PULSE 87; RESP 18; TEMP 36; O2SAT 99
[2024-02-17] MEDS: Morphine Sulfate 4 MG/ML CARTRIDGE IVPUSH ×2 (01:37→06:09)
[2024-02-17] MEDS: Piperacillin Sodium/Tazobactam 4.5 GM in 0.9 % Sodium Chloride 100 ML IV ×4 (01:39→20:44)
[2024-02-17 03:12] VITALS: BP 126/71; PULSE 75; RESP 18; TEMP 36.2; O2SAT 100
--- NOTE | 2024-02-17 07:44 | PM.PNGS ---
Subjective Subjective Date of Service: 02/17/24 Interval history: Abdominal symptoms/gallbladder symptoms improved since IR drainage. Bilious output in LUPIS drain. Physical Exam Vital Signs: Vital Signs: Last Vital Signs Temp 97.1 F 02/17/24 03:12 Pulse 75 02/17/24 03:12 Resp 18 02/17/24 03:12 BP 126/71 02/17/24 03:12 Pulse Ox 100 02/17/24 03:12 O2 Del Method Room Air 02/17/24 03:12 BMI result Body Mass Index 29.0 GI: Other: Abdomen is soft. Gallbladder drain site dressing and intact. Bilious output from gallbladder. Objective Data Active Medications Acetaminophen (Acetaminophen 325 Mg Tablet) 650 mg PO Q6H PRN PRN Reason: Pain, Mild (Pain Scale 1-3) Docusate Sodium (Docusate Sodium 100 Mg Capsule) 100 mg PO BID [facility] Last Admin: 02/16/24 20:29 Dose: Not Given Documented By: TULIO Non-Admin Reason: Patient Refused Folic Acid (Folic Acid 1 Mg Tablet) 1 mg PO DAILY [facility] Last Admin: 02/16/24 08:59 Dose: 1 mg Documented By: MACKENZIE Gabapentin (Gabapentin 100 Mg Capsule) 100 mg PO TID PRN PRN Reason: neuropathic pain legs Piperacillin Sod/Tazobactam (Sod 4.5 gm/ Sodium Chloride) 100 mls @ 200 mls/hr IV Q6H [facility] Last Infusion: 02/17/24 03:24 Dose: Infused Documented By: TULIO Lactic Acid (Ammonium Lactate 12 % Lotion 226 Gm Bottle) 1 appl TOPICAL BID [facility]; Protocol Last Admin: 02/16/24 20:24 Dose: 1 appl Documented By: TULIO Melatonin (Melatonin 3 Mg Tablet) 6 mg PO BEDTIME PRN PRN Reason: Insomnia Morphine Sulfate (Morphine Sulfate 4 Mg/Ml Cartridge) 4 mg IVPUSH Q4H PRN; Protocol PRN Reason: Pain, Severe (Pain Scale 7-10) Last Admin: 02/17/24 06:09 Dose: 4 mg Documented By: TULIO Ondansetron HCl (Ondansetron Hcl 4 Mg/2 Ml Vial) 4 mg IVPUSH Q8H PRN PRN Reason: Nausea and Vomiting Polyethylene Glycol (Polyethylene Glycol 3350 17 Gm Powd.Pack) 17 gm PO DAILY [facility] Last Admin: 02/16/24 08:59 Dose: Not Given Documented By: MACKENZIE Non-Admin Reason: Medication Discontinued Sodium Chloride (0.9 % Sodium Chloride Flush 3 Ml Syringe) 3 ml IVFLUSH QSHIFT [facility] Last Admin: 02/16/24 20:22 Dose: 3 ml Documented By: TULIO Labs 02/15/24 05:22 02/15/24 05:22 Labs: Laboratory Results - last 24 hr 02/12/24 11:23 Smear Path Review SEE NOTE Procedures Date of Service Date of Service: 02/17/24 Progress Note: A&P Assessment and plan (1) Acute cholecystitis: Status: Acute (2) Cholelithiasis: Status: Acute Plan Continue current plan. Diet as tolerated. Patient claims to be constipated so may need purgatives to help with bowel movements. To follow Time Spent With Patient Time: Total time managing care of this patient today ____ minutes. Quality Stroke Does the patient have a stroke diagnosis?: No VTE Prior VTE?: No VTE Risk Level:: Medical - moderate - high VTE Device Contraindication: N/A - Device Ordered VTE Drug Contraindication: Treatment Not Indicated
[2024-02-17 08:00] VITALS: BP 136/77; PULSE 79; RESP 18; TEMP 36.2; O2SAT 99
[2024-02-17 08:57] VITALS: BP 136/77; PULSE 79; O2SAT 99
[2024-02-17] MEDS: 0.9 % Sodium Chloride Flush 3 ML SYRINGE IVFLUSH ×2 (09:05→15:03)
[2024-02-17] MEDS: Folic Acid 1 MG TABLET PO (09:06)
[2024-02-17] MEDS: Gabapentin 100 MG CAPSULE 200 MG PO ×3 (09:06→20:36)
[2024-02-17] MEDS: Acetaminophen 325 MG TABLET 975 MG PO ×3 (09:06→20:42)
[2024-02-17 09:07] VITALS: BP 136/77
[2024-02-17] MEDS: Furosemide 20 MG/2 ML VIAL IVPUSH (09:07)
--- NOTE | 2024-02-17 09:52 | MHC.CLN ---
NUTRITION DIET=CLEAR LIQUIDS. PATIENT WITH INCREASED PROTEIN NEEDS DUE TO STAGE 2 WOUNDS TO LEFT AND RIGHT BUTTOCKS. ADDING ENSURE CLEAR TID TO PROMOTE WOUND HEALING AND NUTRITIONAL INTAKE. WHEN ABLE TO ADVANCE DIET, CHANGE SUPPLEMENT TO ENSURE MAX PROTEIN BID TO PROMOTE WOUND HEALING. FOLLOW FOR INTAKE AND WOUND HEALING.
[2024-02-17] MEDS: Ammonium Lactate 12 % Lotion 226 GM BOTTLE 1 APPL TOPICAL ×2 (10:26→20:47)
[2024-02-17 15:10] VITALS: BP 152/81; PULSE 75; RESP 16; TEMP 36.1; O2SAT 97
--- NOTE | 2024-02-17 15:16 | MHC.CM.PN ---
EMR REVIEWED AND PER MD ROUNDS, PT IS NOT MEDICALLY CLEARED FOR DC. [facility] IS FOLLOWING FOR STR. CM WILL CONTINUE TO FOLLOW FOR ANY CHANGE TO DC PLAN/NEEDS.
--- NOTE | 2024-02-17 15:39 | HO.PM.IMPN ---
Subjective Subjective Date of Service: 02/17/24 Interval History: possible cholecystitis Review of Systems no abd pain or fever cholecytostomy tube draing well Physical Exam Vital Signs: Vital Signs: Last Vital Signs Temp 97.2 F 02/17/24 08:00 Pulse 79 02/17/24 08:57 Resp 18 02/17/24 08:00 BP 136/77 02/17/24 09:07 Pulse Ox 99 02/17/24 08:57 O2 Del Method Room Air 02/17/24 08:00 BMI result Body Mass Index 29.0 Appearance: Alert.? Oriented X3.? cvs: rrr, [id number] , no murmur res: clear to auscultation ,no rhonchii or wheezing abd: no rebound or guarding ,nt, bs present. ext pulses present , no cyanosis . neuro: axo3 , nonfocal. Objective Data Active Medications Acetaminophen (Acetaminophen 325 Mg Tablet) 975 mg PO Q6H [facility] Last Admin: 02/17/24 15:02 Dose: 975 mg Documented By: ALESSANDRA Docusate Sodium (Docusate Sodium 100 Mg Capsule) 100 mg PO BID [facility] Last Admin: 02/17/24 09:20 Dose: Not Given Documented By: ALESSANDRA Non-Admin Reason: Patient Refused Folic Acid (Folic Acid 1 Mg Tablet) 1 mg PO DAILY [facility] Last Admin: 02/17/24 09:06 Dose: 1 mg Documented By: ALESSANDRA Gabapentin (Gabapentin 100 Mg Capsule) 200 mg PO TID [facility] Last Admin: 02/17/24 15:03 Dose: 200 mg Documented By: ALESSANDRA Piperacillin Sod/Tazobactam (Sod 4.5 gm/ Sodium Chloride) 100 mls @ 200 mls/hr IV Q6H [facility] Last Admin: 02/17/24 15:02 Dose: 200 mls/hr Documented By: ALESSANDRA Lactic Acid (Ammonium Lactate 12 % Lotion 226 Gm Bottle) 1 appl TOPICAL BID [facility]; Protocol Last Admin: 02/17/24 10:26 Dose: 1 appl Documented By: ALESSANDRA Melatonin (Melatonin 3 Mg Tablet) 6 mg PO BEDTIME PRN PRN Reason: Insomnia Ondansetron HCl (Ondansetron Hcl 4 Mg/2 Ml Vial) 4 mg IVPUSH Q8H PRN PRN Reason: Nausea and Vomiting Polyethylene Glycol (Polyethylene Glycol 3350 17 Gm Powd.Pack) 17 gm PO BID [facility] Last Admin: 02/17/24 09:12 Dose: Not Given Documented By: ALESSANDRA Non-Admin Reason: Patient Refused Sodium Chloride (0.9 % Sodium Chloride Flush 3 Ml Syringe) 3 ml IVFLUSH QSHIFT [facility] Last Admin: 02/17/24 15:03 Dose: 3 ml Documented By: ALESSANDRA Labs 02/15/24 05:22 02/15/24 05:22 Microbiology Microbiology Results: Microbiology 02/12/24 11:57 Blood Culture - Final Blood - Venous No growth after 5 days. 02/12/24 11:23 Blood Culture - Final Blood - Venous No growth after 5 days. 02/16/24 15:38 Gram Stain - Final Gallbladder Routine Culture - Preliminary No growth to date. Assessment and Plan (1) Acute cholecystitis: Status: Acute (2) BRBPR (bright red blood per rectum): Status: Acute Plan 68-year-old male with a PMH significant for?ischemic cardiomyopathy, hx of DVT with PE 10 years ago not currently on anticoagulation, ulcerative colitis, peripheral neuropathy, HTN, and chronic venous stasis dermatitis admitted for further management of acute cholecystitis. Acute cholecytitis--Pain is better s/p cholcytostomy tube continue zosyn (initiated 02/11), blood culture neg@48hrs Per general surgery- no invasive cholecystectomy due to high surgical risk. recommending GI consult and possible IR gallbladder drainage . GI recommends colonoscopy when GB issues dealt with Chronic constipation-last BM 2 days ago.. -continue miralax, docusate bid,added lactulose BRBPR with acute on chronic macrocytic anemia -? Hemorrhoidal in setting of constipation -stool occult blood pending -clear liquid diet for now per GI H/h 13.3/38.5 colonoscopy in near future generalized weakness/ftt -poor outpt follow up, concern re living situation- CM to follow -PT eval- recommending STR chronic venous stasis dermatitis -venous duplex negative for DVT. Arterial duplex negative for any hemodynamically significant arterial disease -continue ammonium lactate b.i.d. Peripheral neuro polyneuropathy -continue gabapentin hypertension -not on home medications, hold on initiating at this time -monitor BP Chronic macrocytic anemia -as above -vitamin b12 normal and folic acid low (on folic acid ) DVT prophylaxis-Karenx Full code ongoing inpatient stay for management of acute cholecystitis s/p cholcytostomy tube -need iv antibiotics and surgerical follow for dispo planning as well as need for possible rehab placement. Quality Stroke Does the patient have a stroke diagnosis?: No VTE Prior VTE?: No VTE Risk Level:: Medical - moderate - high VTE Device Contraindication: N/A - Device Ordered VTE Drug Contraindication: Treatment Not Indicated
[2024-02-17 19:23] VITALS: BP 139/74; PULSE 77; RESP 18; TEMP 36.1; O2SAT 99
[2024-02-18] MEDS: Piperacillin Sodium/Tazobactam 4.5 GM in 0.9 % Sodium Chloride 100 ML IV ×2 (02:17→08:45)
[2024-02-18] MEDS: Acetaminophen 325 MG TABLET 975 MG PO ×2 (02:54→08:48)
[2024-02-18 03:09] VITALS: BP 128/70; PULSE 75; RESP 18; TEMP 36.7; O2SAT 99
[2024-02-18 08:00] VITALS: BP 129/73; PULSE 73; RESP 12; TEMP 36.6; O2SAT 98
[2024-02-18 08:30] LABS: Alanine Aminotransferase 24 U/L (0-40); Albumin Level 2.3 g/dL (3.5-5.0); Alkaline Phosphatase 152 U/L (39-117); Aspartate Amino Transferase 59 U/L (5-37); Bilirubin Direct 0.8 mg/dL (0.0-0.5); Bilirubin Total 1.4 mg/dL (0.0-1.0); Total Protein 5.8 g/dL (6.5-8.0)
[2024-02-18] MEDS: Gabapentin 100 MG CAPSULE 200 MG PO (08:48)
[2024-02-18] MEDS: Folic Acid 1 MG TABLET PO (08:48)
[2024-02-18] MEDS: 0.9 % Sodium Chloride Flush 3 ML SYRINGE IVFLUSH (08:50)
[2024-02-18] MEDS: Ammonium Lactate 12 % Lotion 226 GM BOTTLE 1 APPL TOPICAL (08:51)
--- NOTE | 2024-02-18 11:52 | P.DS_ITS ---
DS: Providers Provider Date of Service: 02/18/24 Date of admission: 02/12/24 19:35 Date of discharge: 02/18/24 Primary care physician: Katy Peters MD Consults: 02/12/24 19:34 Consult to General Surgery Routine Consulting [place] [facility] [place] [facility] Reason for consultation: acute cholecystitis 02/13/24 10:57 Consult to Gastroenterology Routine Consulting Provider: Alberto Ennis Reason for consultation: BRBPR, severe constipation- starting bowel regimen Attending physician on discharge: Luke Francis Discharging clinician: Luke Francis DS: Diagnosis Discharge Diagnosis (1) Acute cholecystitis: Status: Acute (2) BRBPR (bright red blood per rectum): Status: Acute DS: Summary Hospital Course Hospital Course: 68-year-old male with a PMH significant for?ischemic cardiomyopathy, hx of DVT with PE 10 years ago not currently on anticoagulation, ulcerative colitis, p eripheral neuropathy, HTN, and chronic venous stasis dermatitis who presents to the ED for evaluation of generalized weakness, nausea, and stomach upset x4 days. Pt comes from a rented room in the basement of a house and [place] he shares with another tenant. States he has been sleeping in a chair for the past 4 day and been unable to stand due to weakness in his legs. Also reports not eating or drinking much due to an upset stomach. Complains mostly of nausea without vomiting, and only minor stomach pain/discomfort. Also complains of worsening pain in his legs bilaterally that has been ongoing since his DVT and PE 10 years ago. Denies fever, chills. No changes to bowel or bladder habits. Denies chest pain/pressure, palpitations. No shortness of breath or difficulty breathing. Of note, pt received a tray of food while in the ED and was able to tolerate eating a sandwich. In the ED pt with elevated heart rate to 93, vitals otherwise largely WNL. Labs were significant for MCV 113.5, lactic acid 2.3 with repeat 2.4 and 1.6, total bilirubin 2.9, AST 149, alk-phos 247, BNP mildly elevated at 183. No leukocytosis. Stable H&H. No significant electrolyte abnormalities. Renal function baseline. CXR showed no acute cardiopulmonary disease. CT?of abdomen and pelvis found distended gallbladder with cholelithiasis. Also noted wall thickening, submucosal edema, and pericolonic stranding of cecum and ascending colon, likely reactive to terminal ileum and appendix. Additionally showed small intra-abdominal and intrapelvic ascites and hepatic steatosis and hepatomegaly. Abdominal ultrasound showed cholelithiasis with gallbladder wall thickening and fluid and gallbladder wall, suspicious for acute cholecystitis. Arterial duplex of lower extremities bilaterally showed no evidence of hemodynamically significant arterial disease. Venous duplex of lower extremities bilaterally showed no DVT demonstrated. EKG demonstrated normal sinus rhythm c with QT of 503, but no evidence of significant ST elevations or depressions. Pt was treated with IVF, ceftriaxone, and ketorolac. Pt will be admitted to the hospital for treatment and further evaluation of acute cholecystitis. Hospital course: Patient with multiple comorbidities- hx?ischemic cardiomyopathy, hx of DVT with PE 10 years ago not currently on anticoagulation, ulcerative colitis, peripheral neuropathy, HTN, and chronic venous stasis dermatitis -came to the hospital because of abdominal pain-abdominal ultrasound -showed acute cholecystitis: Patient was seen by surgery, started on IV antibiotics, blood cultures sent, in addition patient required cholecystostomy,no invasive cholecystectomy due to high surgical risk. Cholecystostomy tube draining improving, discussed with surgery-patient will be going to rehab with cholecystostomy tube, please see cholecystostomy tube instructions below. Patient's blood cultures negative, gallbladder cultures- also negative. Antibiotics stopped, patient received 7 days of Zosyn. follow up with surgery outpatient for cholecystostomy tube. Constipation: Patient is tolerating diet, passing gases, he says that he has bowel movement sometime in a week, he passed bowel 3 days back. no abd pain . Continue laxatives. Folate deficiency: Continue folate. BRBPR with acute on chronic macrocytic anemia: Question of hemorrhoidal bleeding in setting of constipation. Also has folate deficiency Patient status post cholecystostomy, H&H stable 13.3/38.5, macrocytic anemia. Also has low folate. Could not able to send occult blood since no BM for few days seen by Gi and abd ct reviewed -patient is improving ,no new abd c/o, h/h stable. moniter cbc , follow-up with GI outpatient-outpatient colonoscopy. chronic venous stasis dermatitis venous duplex negative for DVT. Arterial duplex negative for any hemodynamically significant arterial disease continue ammonium lactate b.i.d.,leg elevation also continue gabapentine for Peripheral polyneuropathy plan: Monitor CBC for anemia. Continue folate 1 mg daily due to folate deficiency. Continue laxatives for constipation, use anymore if needed. Patient is to follow-up with surgery for cholecystostomy tube, also need to follow-up out patiently with GI for the need outpatient colonoscopy. Above management discussed with the patient in detail length he understand and in agreement with the above plan, time spent 40 minutes and 50% time spent on counseling. Time Attestation Total time managing care of this patient today: 40 mintues. Discharge Coordination Time (in mins): 40 min Quality: Safe Use of Opioids Does Pt have an Active Cancer Diagnosis on the Problem List?: No Quality: Stroke Does the patient have a stroke diagnosis?: No Physical Exam Vital Signs: Vital Signs: Last Vital Signs Temp 97.9 F 02/18/24 08:00 Pulse 73 02/18/24 08:00 Resp 12 02/18/24 08:00 BP 129/73 02/18/24 08:00 Pulse Ox 98 02/18/24 08:00 O2 Del Method Room Air 02/18/24 08:00 BMI result Body Mass Index 29.0 Appearance: Alert.? Oriented X3.? cvs: rrr, [id number] , no murmur res: clear to auscultation ,no rhonchii or wheezing abd: no rebound or guarding ,nt, bs present. ext pulses present , no cyanosis . neuro: axo3 , nonfocal. DS: Data Data Completed and Pending Labs on day of discharge: Laboratory Results - last 24 hr 02/18/24 08:04 Total Bilirubin 1.4 H Direct Bilirubin 0.8 H AST 59 H ALT 24 Alkaline Phosphatase 152 H Total Protein 5.8 L Albumin 2.3 L Imaging Chest x-ray: Radiologist's impression: ITS Impressions Duplex Scan Lower Extremity Artery 02/12/24 12:42 IMPRESSION: There is no evidence of any hemodynamically significant lower extremity arterial disease by waveform or duplex Doppler criteria at rest. Venous Duplex 02/12/24 12:42 IMPRESSION: No DVT demonstrated in the bilateral lower extremity. Chest X-Ray 02/12/24 13:38 IMPRESSION: No acute cardiopulmonary disease. Abdomen/Pelvis CT 02/12/24 14:05 IMPRESSION: Wall thickening, submucosal edema and pericolonic stranding of the cecum and ascending colon with presumably reactive changes of the terminal ileum and appendix. Infectious and inflammatory etiologies should be considered. Small intra-abdominal and intrapelvic ascites. Hepatic steatosis and hepatomegaly. Distended gallbladder. Cholelithiasis. Advise correlation with right upper quadrant ultrasound. Abdomen Ultrasound 02/12/24 17:17 IMPRESSION: Cholelithiasis with gallbladder wall thickening and fluid in the gallbladder wall. Findings are suspicious for acute cholecystitis. Chopra's sign is negative. Discharge Plan Discharge Anticipated Discharge Date/Time: 02/18/24 11:27 Patient Disposition: er [facility] Discharge Diagnosis: acute on chronic macrocytic anemia,Acute cholecytitis-s/p cholcytostomy tube Referrals: Katy Peters MD [Primary Care Provider] - 1 Week Zuhair Good MD [Physician] - 1 Week Discharge Medications: New docusate sodium 100 mg Capsule 100 mg PO BID Qty: 30 0RF lactulose 20 gram/30 mL Solution 20 g PO DAILY Qty: 100 0RF folic acid 1 mg Tablet 1 mg PO DAILY Qty: 30 0RF ammonium lactate 12 % Lotion 1 appl topical BID Qty: 225 0RF Protocol: Apply to: Apply to: Lower legs bilaterally melatonin 3 mg Tablet 6 mg PO BEDTIME PRN (Reason: Insomnia) Qty: 1 0RF acetaminophen 325 mg Tablet 975 mg PO Q6H PRN (Reason: pain) Qty: 1 0RF Continued (DME) [facility] See [facility] Instructions .Route Qty: 1 0RF Rx Instructions: As directed (DME) walker [facility] [place] See Rx Instructions .Route Qty: 1 0RF Rx Instructions: As directed Changed gabapentin 100 mg capsule 200 mg PO TID PRN (Reason: Pain) Qty: 1 0RF Discharge Orders: Discharge Order (Routine); Ordered 02/18/24 Ordered By: Luke Francis Diet: Advance to usual diet Activity on Discharge: No heavy lifting Stand Alone Forms: Patient Portal Discharge page Print Language: Croatian Activity Restrictions/Additional Instructions: Gallbladder drain to gravity bulb suction. Please secure the drain so it does not hang freely. May shower. No strenuous activities. Care Plan Goals: Patient with multiple comorbidities- ?ischemic cardiomyopathy, hx of DVT with PE 10 years ago not currently on anticoagulation, ulcerative colitis, peripheral neuropathy, HTN, and chronic venous stasis dermatitis -came to the hospital because of abdominal pain-abdominal ultrasound -showed acute cholecystitis: Patient was seen by surgery, started on IV antibiotics, blood cultures sent, in addition patient required cholecystostomy,no invasive cholecystectomy due to high surgical risk. Cholecystostomy tube draining improving, discussed with surgery-patient will be going to rehab with cholecystostomy tube, please see cholecystostomy tube instructions below. Patient's blood cultures negative, gallbladder cultures- also negative. Antibiotics stopped, patient received 7 days of Zosyn. follow up with surgery outpatient for cholecystostomy tube. Constipation: Patient is tolerating diet, passing gases, he says that he has bowel movement sometime in a week, he passed bowel 3 days back. no abd pain . Continue laxatives. Folate deficiency: Continue folate. BRBPR with acute on chronic macrocytic anemia: Question of hemorrhoidal bleeding in setting of constipation. Patient status post cholecystostomy, H&H stable 13.3/38.5, macrocytic anemia. Also has low folate. Could not able to send occult blood since no BM for few days moniter cbc , follow-up with GI outpatient. Health Concerns: As above. Plan of Treatment: As above. Assessment: As above.
--- NOTE | 2024-02-18 11:59 | MHC.CM.PN ---
EMR reviewed. Per MD rounds patient is medically cleared for dc to [facility]. BLS transport scheduled for 1pm. Patient, RN and MD aware. IMM delivered.
== END 2024-02-18 13:54 | disposition skilled nursing facility (03) | DRG 445 ==
LOC: HO.ED 15:48 → HO.EDOVER 19:40 → HO.S3 02-14 07:29
PROVIDERS: Internal Medicine; Physician Assistant; Admitting Provider Student in an Organized Health Care Education/Training Program; Emergency Provider Emergency Medicine Emergency Medical Services; PCP Internal Medicine; Visit Provider Internal Medicine
DX: K80.00 Calculus of gallbladder with acute cholecystitis without obstruction (principal); E87.21 Acute metabolic acidosis; K62.5 Hemorrhage of anus and rectum; K59.09 Other constipation; I10 Essential (primary) hypertension; D53.9 Nutritional anemia, unspecified; R62.7 Adult failure to thrive; E53.8 Deficiency of other specified B group vitamins; Z68.29 Body mass index [BMI] 29.0-29.9, adult; I87.2 Venous insufficiency (chronic) (peripheral); K64.9 Unspecified hemorrhoids; E11.42 Type 2 diabetes mellitus with diabetic polyneuropathy; Z87.891 Personal history of nicotine dependence; Z86.718 Personal history of other venous thrombosis and embolism; Z86.711 Personal history of pulmonary embolism; Z79.899 Other long term (current) drug therapy
CPT/HCPCS: 36415; 71045; 74177; 75989; 76705; 80048; 80053; 80076; 80307; 81003; 82550; 82607; 82746; 83036; 83605; 83880; 84484; 85025; 85027; 85610; 87040; 87070; 87205; 93005; 93925; 93970; 97116; 97162; 97530; 99285; C1729; C1769; J0696; J1885; J1940; J2270; J2543; Q9967

== ENCOUNTER → 2024-02-12 10:40 | Outpatient (BNV) | payer MEDICARE, MEDICAID, SELFPAY | PROVIDERS: Admitting Provider Student in an Organized Health Care Education/Training Program; Emergency Provider Emergency Medicine Emergency Medical Services; PCP Internal Medicine; Visit Provider Internal Medicine Cardiovascular Disease | DX: R53.1 Weakness (principal) | CPT/HCPCS: 93010 ==

== ENCOUNTER 2024-02-12 19:35 | Outpatient (BNV) | payer MEDICARE, MEDICAID, SELFPAY | END 2024-02-16 14:57 | PROVIDERS: Admitting Provider Student in an Organized Health Care Education/Training Program; Emergency Provider Emergency Medicine Emergency Medical Services; PCP Internal Medicine; Visit Provider Student in an Organized Health Care Education/Training Program | DX: K81.9 Cholecystitis, unspecified (principal) | CPT/HCPCS: 47490 ==

== ENCOUNTER → 2024-02-12 19:35 | Outpatient (BNV) | payer MEDICARE, MEDICAID, SELFPAY | PROVIDERS: Admitting Provider Student in an Organized Health Care Education/Training Program; Emergency Provider Emergency Medicine Emergency Medical Services; PCP Internal Medicine; Visit Provider Surgery | DX: K81.0 Acute cholecystitis (principal) | CPT/HCPCS: 99223; 99232; 99233 ==

== ENCOUNTER → 2024-02-12 19:35 | Outpatient (BNV) | payer MEDICARE, MEDICAID, SELFPAY | PROVIDERS: Admitting Provider Student in an Organized Health Care Education/Training Program; Emergency Provider Emergency Medicine Emergency Medical Services; PCP Internal Medicine; Visit Provider Student in an Organized Health Care Education/Training Program | DX: K81.0 Acute cholecystitis (principal); K62.5 Hemorrhage of anus and rectum | CPT/HCPCS: 99222; 99232; 99239 ==

== ENCOUNTER → 2024-02-12 19:35 | Outpatient (BNV) | payer MEDICARE, MEDICAID, SELFPAY | PROVIDERS: Admitting Provider Student in an Organized Health Care Education/Training Program; Emergency Provider Emergency Medicine Emergency Medical Services; PCP Internal Medicine; Visit Provider Internal Medicine Gastroenterology | DX: K80.00 Calculus of gallbladder with acute cholecystitis without obstruction (principal); K62.5 Hemorrhage of anus and rectum | CPT/HCPCS: 99223 ==